=== PATIENT | female | born 1960 | race Caucasian/White ===

== ENCOUNTER 2016-12-08 15:27 | Emergency (ER) | payer OTHER ==
[~2016-12-08] VITALS: Ht 157.5 cm; Wt 70.3 kg
[~2016-12-08 15:27] MED LIST: ALBU8.5H2 IH; AMOX500C2 PO; CARI250T PO; CETI10CA PO; CETI1TAB80 PO; CHOL10003 PO; CYCL10TA9 PO; DCS100C PO; DEXL60CA5 PO; DIPH25CA79 PO; FLT05NA16 NS; FLUT9.9S NS; HYDR-3454 PO; HYDR-3600 PO; HYDR50CA PO; LEVO50TA PO; LINA145C PO; MELO-195 PO; NF-ESOM40C PO; PNT40TEC PO; POLY119P PO; PRD20T PO
--- OUTSIDE RECORDS SUMMARY | 2016-12-08 15:32 | XMS REPORT | Continuity of Care Document ---
Author Author [facility] Organization [facility] Address Unknown Phone Unavailable Care Team Providers Care Lining Feller Name Role Phone JACQUELINE HE DO PCP Insurance Providers Payer Name Policy Number Subscriber Name Relationship Self Pay Noel Alejo V 18 Self / Same As Patient Advance Directives Directive Response Recorded Date/Time Advance Directives No 12/02/14 10:35am Organ Donor Yes 12/02/14 10:35am Resuscitation Status Full Code 12/02/14 10:35am Problems No known problems or medical conditions. Medications Medication Dose Route Sig Days/Qty Instructions Order Date Discontinued Date Status Cyclobenzaprine HCl (Flexeril) 1 Ea PO THREE TIMES A DAY PRN Active Meloxicam (Mobic) 1 Ea PO DAILY PRN 05/25/09 Active Cholecalciferol 1 Tab PO DAILY 05/25/09 Active Carisoprodol 250 Mg PO EVERY 8HRS 20 Qty 05/25/09 11/29/12 Discontinued Dexlansoprazole 60 Mg PO BEDTIME 03/09/12 11/29/12 Discontinued Hydroxyzine HCl 1 - 2 Each PO TID PRN 11/29/12 Active Prednisone 40 Mg PO DAILY 4 Days 11/29/12 Active Albuterol 8.5 Gm IH EVERY 4HRS 1 Qty 2 PUFFS 12/08/12 Active Social History Social History Problem Response Recorded Date/Time Alcohol Use Rarely Uses 12/08/2012 11:16am Recreational Drug Use No 12/08/2012 11:16am Recent Foreign Travel No 12/02/2014 10:35am Smoking Status Current Everyday Smoker 12/02/2014 10:35am Query Response Start Date Stop Date Smoking Status Current Everyday Smoker Hospital Discharge Instructions No hospital discharge instructions. Plan of Care No plan of care. Functional Status No functional status results. Allergies, Adverse Reactions, Alerts Allergen Type Severity Reaction Status Last Updated sulfamethoxazole ([id number]) Allergy Mild Active 05/25/09 Trimethoprim Allergy Mild Active 05/25/09 Immunizations No immunization records. Vital Signs Acute Vital Signs Vital Response Date/Time Temperature (Fahrenheit) 97.4 degrees F (97.6 - 99.5) Temperature (Calculated Celsius) 36.53376 degrees C (36.4 - 37.5) Temperature Source Tympanic Pulse Rate (adult) 72 bpm (60 - 90) Respiratory Rate 18 bpm (12 - 24) O2 Sat by Pulse Oximetry 97 % (88 - 100) Blood Pressure 110/76 mm Hg Pain Pain Intensity 0 Height (Feet) 5 feet Height (Inches) 2.00 inches Height (Calculated Centimeters) 157.727936 cm Weight (Pounds) 155 pounds Weight (Calculated Grams) 31837.818 gm Weight (Calculated Kilograms) 70.993972 kilograms Height 5 ft 2 in Weight 155 lb Body Mass Index 28.3 kg/m^2 Results No known relevant diagnostic tests, laboratory data and/or discharge summary. Procedures No known history of procedures. Encounters Encounter Location Date/Time Registered [facility] 12/02/14 10:30am Registered Clinic [facility] 11/28/14 5:54am
[2016-12-08] MEDS ORDERED: PSEU-137 PO (15:53)
[2016-12-08 16:12] LABS: BASOPHILS % (AUTO) 0 % (0-10); EOSINOPHILS # (AUTO) 0.1 10^3/uL (0.0-0.3); EOSINOPHILS % (AUTO) 1 % (0-10); LYMPHOCYTES # (AUTO) 2.3 X 10^3 (1.0-4.0); LYMPHOCYTES % (AUTO) 33 % (12-44); MEAN CORPUSCULAR HEMOGLOBIN 31 PG (25-34); MEAN CORPUSCULAR HGB CONC 34 G/DL (32-36); MEAN CORPUSCULAR VOLUME 91 FL (80-99); MEAN PLATELET VOLUME 10.4 FL (7.4-10.4); MONOCYTES # (AUTO) 0.8 X 10^3 (0.0-1.0); MONOCYTES % (AUTO) 11 % (0-12); NEUTROPHILS # (AUTO) 3.8 X 10^3 (1.8-7.8); NEUTROPHILS % (AUTO) 55 % (42-75); PLATELET COUNT 240 10^3/uL (130-400); RED BLOOD COUNT 4.96 10^6/uL (4.35-5.85); RED CELL DISTRIBUTION WIDTH 12.5 % (10.0-14.5)
--- NOTE | 2016-12-08 16:17 | ED General ---
General Chief Complaint: General Problems/Pain Stated Complaint: WEAKNESS Nursing Triage Note: Pt c/o weakness in bilat lower extremities starting upon waking today. Pt also c/o cold chills and cough. Pt reports approx 2 hours ago she had an episode of feeling like both arms and legs were going numb. 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 Pt denies SOA or tongue swelling at this time. Nursing Sepsis Screen: No Definite Risk Source of Information: Patient Exam Limitations: No Limitations (THIEN BELTRAN MD) History of Present Illness Time Seen by Provider: 16:14 Initial Comments The patient is a 56-year-old white female who reports that she had been having problems with a mild weakness in her left leg for 2 or 3 weeks. This morning when she got up she felt a generalized weakness in both legs. This prompted her to lie back down and then she began to feel weak all over. She sees Dr. HE and call the office to see if she could be seen today but this was not possible so she came here. She reports that this feeling of overwhelming weakness is less now than before but still present. Timing/Duration: Other (THIEN BELTRAN MD) Allergies and Home Medications Allergies Coded Allergies: sulfamethoxazole (Unverified Allergy, Mild, 05/25/09) trimethoprim (Unverified Allergy, Mild, 05/25/09) Sulfa (Sulfonamide Antibiotics) (Unverified Allergy, Unknown, 12/08/16) Home Medications Cetirizine Hcl 10 Mg Capsule 10 MG PO HS (Reported) Cholecalciferol 1,000 Unit Tablet 2,000 UNITS PO HS (Reported) Diphenhydramine Hcl 25 Mg Capsule 25 MG PO TID PRN PRN ALLERGIES (Reported) PRN ALLERGIES Fluticasone Propionate 9.9 Ml [place].susp 9.9 ML NS UD (Reported) Hydroxyzine Pamoate 50 Mg Capsule #20 50 MG PO Q6H Prescribed by: MANOLO ANAYA on 07/03/15 0208 Levothyroxine Sodium 50 Mcg Tablet 50 MCG PO DAILY (Reported) Pantoprazole Sod 40 Mg Tab 40 MG PO BID (Reported) Polyethylene Glycol 119 Gm Btl 17 GM PO PRN PRN PRN CONSTIPATION (Reported) Pseudoephedrine HCl 30 Mg Tablet Unknown Dose PO PRN PRN PRN CONGESTION ( Reported) Constitutional: see HPI EENTM: no symptoms reported Respiratory: cough Cardiovascular: no symptoms reported Gastrointestinal: no symptoms reported Genitourinary: no symptoms reported Musculoskeletal: muscle weakness Skin: other (blue discoloration to feet and lower legs earlier today) Psychiatric/Neurological: No Symptoms Reported Hematologic/Lymphatic: No Symptoms Reported (THIEN BELTRAN MD) Past Ozoigma-Lynctf-Lajhyj Hx Patient Social History Alcohol Use: Denies Use Recreational Drug Use: No Smoking Status: Current Everyday Smoker Type Used: Cigarettes Recent Foreign Travel: No Contact w/Someone Who Travel: No Recent Infectious Disease Expo: No Recent Hopitalizations: No (THIEN BELTRAN MD) Immunizations Up To Date Tetanus Booster (TDap): Unknown (THIEN BELTRAN MD) Seasonal Allergies Seasonal Allergies: Yes (THIEN BELTRAN MD) Surgeries HX Surgeries: Yes (OPEN RSO) Surgeries: Appendectomy, Gallbladder, Oophorectomy, Tubal Ligation (THIEN BELTRAN MD) Respiratory Hx Respiratory Disorders: No (THIEN BELTRAN MD) Cardiovascular Hx Cardiac Disorders: No (THIEN BELTRAN MD) Neurological Hx Neurological Disorders: No (THIEN BELTRAN MD) Reproductive System Hx 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 (THIEN BELTRAN MD) Genitourinary Hx Genitourinary Disorders: No (THIEN BELTRAN MD) Gastrointestinal Hx Gastrointestinal Disorders: Yes Gastrointestinal Disorders: Gastroesophageal Reflux, Chronic Constipation, Diverticulosis, Polyps, Hiatal Hernia, Gall Bladder Disease (THIEN BELTRAN MD) Musculoskeletal Hx Musculoskeletal Disorders: Yes Musculoskeletal Disorders: Degenerate Disk Disease, Arthritis, Chronic Back Pain (THIEN BELTRAN MD) Endocrine Hx Endocrine Disorders: Yes Endocrine Disorders: Hypothyroidsim (THIEN BELTRAN MD) HEENT HX ENT Disorders: No (GLASSES, ALLERGIES) Hearing Impairment: Denies (THIEN BELTRAN MD) Cancer Hx Cancer: No (THIEN BELTRAN MD) Psychosocial Hx Psychiatric Problems: No (THIEN BELTRAN MD) Integumentary HX Skin/Integumentary Disorder: No (THIEN BELTRAN MD) Blood Transfusions Hx Blood Disorders: No Adverse Reaction to a Blood Tr: No (THIEN BELTRAN MD) Physical Exam Vital Signs Vital Sign - Last 12Hours 12/08/16 15:46 Temp 98.7 Pulse 108 Resp 18 B/P 148/99 Pulse Ox 96 O2 Delivery Room Air (MANOLO ANAYA DO) Vital Signs Capillary Refill : Less Than 3 Seconds (THIEN BELTRAN MD) General Appearance: Mild Distress Eyes: Bilateral Eye Normal Inspection HEENT: Normal ENT Inspection Neck: Normal Inspection Respiratory: Chest Non Tender Lungs Clear Normal Breath Sounds No Accessory Muscle Use No Respiratory Distress Cardiovascular: Regular Rate, Rhythm No Edema No Gallop No JVD No Murmur Normal Peripheral Pulses Gastrointestinal: Normal Bowel Sounds No Organomegaly No Pulsatile Mass Non Tender Soft Back: Normal Inspection No CVA Tenderness No Vertebral Tenderness Extremity: Normal Capillary Refill Normal Inspection Normal Range of Motion Non Tender No Calf Tenderness No Pedal Edema Neurologic/Psychiatric: Other (flat affect) Reflexes: 2+ Bicep (R), 2+ Bicep (L), 2+ Knee (R), 2+ Knee (L) Skin: Normal Color Warm/Dry Lymphatic: No Adenopathy (THIEN BELTRAN MD) Progress/Results/Core Measures Results/Orders Lab Results (MANOLO ANAYA DO) My Orders (MANOLO ANAYA DO) Vital Signs/I&O (MANOLO ANAYA DO) Blood Pressure Mean: 115 Progress Note : Progress Note 1640--ASSUMED CARE FROM DR BELTRAN. UA PENDING, HEAD CT ORDERED (MANOLO ANAYA DO) Diagnostic Imaging Comments CT HEAD--NO ACUTE PROCESS, PER RADIOLOGIST REPORT @ 1720 Reviewed: Reviewed by Me (MANOLO ANAYA DO) Departure Impression Impression: Primary Impression: Generalized weakness Disposition: 01 HOME, SELF-CARE Condition: Improved Departure-Patient Inst. Referrals: JACQUELINE HE DO (PCP/Family) Primary Care Physician Patient Instructions: Generalized Weakness (DC) Add. Discharge Instructions: CONTINUE YOUR CURRENT MEDICATIONS PRESCRIBED FOLLOW UP WITH DR. HE IN 3-5 DAYS FOR FURTHER CARE All discharge instructions reviewed with patient and/or family. Voiced understanding. THIEN BELTRAN MD Dec 08, 2016 16:17 MANOLO ANAYA DO Dec 08, 2016 17:22 Chloride Level 108 H 98-107 MMOL/L Creatinine 0.80 0.60-1.30 MG/DL Eosinophils # (Auto) 0.1 0.0-0.3 10^3/uL Eosinophils (%) (Auto) 1 0-10 % Estimat Glomerular Filtration Rate > 60 Glucose Level 122 H 70-105 MG/DL Hematocrit 45 35-52 % Hemoglobin 15.2 11.5-16.0 G/DL Lymphocytes # (Auto) 2.3 1.0-4.0 X 10^3 Lymphocytes (%) (Auto) 33 12-44 % Magnesium Level 2.0 1.8-2.4 MG/DL Mean Corpuscular Hemoglobin 31 25-34 PG Mean Corpuscular Hemoglobin Concent 34 32-36 G/DL Mean Corpuscular Volume 91 80-99 FL Mean Platelet Volume 10.4 7.4-10.4 FL Monocytes # (Auto) 0.8 0.0-1.0 X 10^3 Monocytes (%) (Auto) 11 0-12 % Neutrophils # (Auto) 3.8 1.8-7.8 X 10^3 Neutrophils (%) (Auto) 55 42-75 % Platelet Count 240 130-400 10^3/uL Potassium Level 3.9 3.6-5.0 MMOL/L Red Blood Count 4.96 4.35-5.85 10^6/uL Red Cell Distribution Width 12.5 10.0-14.5 % Sodium Level 141 135-145 MMOL/L TSH [place] Testing 0.98 0.35-4.94 UIU/ML Total Bilirubin 0.6 0.1-1.0 MG/DL Total Creatine Kinase 81 29-168 U/L Total Protein 6.5 6.4-8.2 G/DL White Blood Count 7.0 4.3-11.0 10^3/uL Ur Tricyclic Antidepressants Screen NEGATIVE NEGATIVE Urine Amphetamines Screen NEGATIVE NEGATIVE Urine Bacteria NEGATIVE /HPF Urine Barbiturates Screen NEGATIVE NEGATIVE Urine Benzodiazepines Screen NEGATIVE NEGATIVE Urine Bilirubin NEGATIVE NEGATIVE Urine Cannabinoids Screen NEGATIVE NEGATIVE Urine Casts NONE /LPF Urine Clarity CLEAR Urine Cocaine Screen NEGATIVE NEGATIVE Urine Color YELLOW Urine Crystals NONE /LPF Urine Culture Indicated NO Urine Glucose (UA) NEGATIVE NEGATIVE Urine Ketones NEGATIVE NEGATIVE Urine Leukocyte Esterase NEGATIVE NEGATIVE Urine Methadone Screen NEGATIVE NEGATIVE Urine Methamphetamines Screen NEGATIVE NEGATIVE Urine Mucus NEGATIVE /LPF Urine Nitrite NEGATIVE NEGATIVE Urine Opiates Screen NEGATIVE NEGATIVE Urine Oxycodone Screen NEGATIVE NEGATIVE Urine Phencyclidine Screen NEGATIVE NEGATIVE Urine Propoxyphene Screen NEGATIVE NEGATIVE Urine Protein NEGATIVE NEGATIVE Urine RBC NONE /HPF Urine RBC (Auto) NEGATIVE NEGATIVE Urine Specific [place] 1.005 L 1.016-1.022 Urine Squamous Epithelial Cells 0-2 /HPF Urine Urobilinogen NORMAL NORMAL MG/DL Urine WBC NONE /HPF Urine pH 7 5-9 (MANOLO ANAYA DO) My Orders Orders-MANOLO ANAYA DO Ct Head Wo (12/08/16 16:53) Magnesium (12/08/16 17:23) Thyroid Analyzer (12/08/16 17:23) (MANOLO ANAYA DO) Vital Signs/I&O Vital Sign - Last 12Hours 12/08/16 15:46 Temp 98.7 Pulse 108 Resp 18 B/P 148/99 Pulse Ox 96 O2 Delivery Room Air (MANOLO ANAYA DO) Blood Pressure Mean: 115 Progress Note : Progress Note 1640--ASSUMED CARE FROM DR BELTRAN. UA PENDING, HEAD CT ORDERED (MANOLO ANAYA DO) Diagnostic Imaging Comments CT HEAD--NO ACUTE PROCESS, PER RADIOLOGIST REPORT @ 1720 Reviewed: Reviewed by Me (MANOLO ANAYA DO) Departure Impression Impression: Primary Impression: Generalized weakness Disposition: 01 HOME, SELF-CARE Condition: Improved Departure-Patient Inst. Referrals: JACQUELINE HE DO (PCP/Family) Primary Care Physician Patient Instructions: Generalized Weakness (DC) Add. Discharge Instructions: CONTINUE YOUR CURRENT MEDICATIONS PRESCRIBED FOLLOW UP WITH DR. HE IN 3-5 DAYS FOR FURTHER CARE All discharge instructions reviewed with patient and/or family. Voiced understanding. THIEN BELTRAN MD Dec 08, 2016 16:17 MANOLO ANAYA DO Dec 08, 2016 17:22
[2016-12-08 16:32] LABS: ALANINE AMINOTRANSFERASE 36 U/L (0-55); ALBUMIN 4.2 G/DL (3.2-4.5); ANION GAP 10 MMOL/L (5-14); ASPARTATE AMINO TRANSFERASE 29 U/L (5-34); BILIRUBIN,TOTAL 0.6 MG/DL (0.1-1.0); BLOOD UREA NITROGEN 8 MG/DL (7-18); BUN/CREATININE RATIO 10; CARBON DIOXIDE 23 MMOL/L (21-32); CHLORIDE 108 MMOL/L (98-107); CREATINE KINASE 81 U/L (29-168); GFR ESTIMATED > 60; GLUCOSE 122 MG/DL (70-105); POTASSIUM 3.9 MMOL/L (3.6-5.0); SODIUM 141 MMOL/L (135-145); TOTAL PROTEIN 6.5 G/DL (6.4-8.2)
[2016-12-08 16:48] LABS: BILIRUBIN,URINE NEGATIVE (NEGATIVE); KETONES,URINE NEGATIVE (NEGATIVE); LEUKOCYTE ESTERASE ,URINE NEGATIVE (NEGATIVE); NITRITE,URINE NEGATIVE (NEGATIVE); PH,URINE 7 (5-9); PROTEIN,URINE NEGATIVE (NEGATIVE); UROBILINOGEN,URINE NORMAL (NORMAL)
[2016-12-08 17:11] LABS: SQUAMOUS EPITHELIAL CELL,UR 0-2 /HPF
--- NOTE | 2016-12-08 17:16 | Diagnostic Imaging Report ---
PROCEDURE: CT head without contrast. TECHNIQUE: Multiple contiguous axial images were obtained through the brain without the use of intravenous contrast. INDICATION: Numbness and tingling in bilateral upper and lower extremities. FINDINGS: There is no intracranial hemorrhage, edema, or mass effect. The brain parenchyma and quintana-white matter differentiation is preserved. No hydrocephalus. No extra-axial fluid collection seen. The calvarium, the visualized portions of the paranasal sinuses and orbits appear grossly unremarkable. IMPRESSION: Unremarkable exam. Dictated by: Dictated on workstation # [id number]
[2016-12-08 19:20] VITALS: BP 136/81
== END 2016-12-08 19:20 | disposition home or self-care (01) ==
LOC: EDUNIT# 15:27 → ER 15:29
DX: R53.1 Weakness (principal); F17.210 Nicotine dependence, cigarettes, uncomplicated; Z79.899 Other long term (current) drug therapy
CPT/HCPCS: 36415; 70450; 80053; 80306; 81000; 82550; 83735; 84443; 85025

== ENCOUNTER 2017-03-23 17:43 | Emergency (ER) | payer SELFPAY ==
[~2017-03-23] VITALS: Ht 157.5 cm; Wt 72.6 kg
[~2017-03-23 17:43] MED LIST changes: +PSEU-137 PO
--- NOTE | 2017-03-23 18:19 | ED General ---
General Stated Complaint: SWELLING IN STOMACH AND BOTH LEGS Source of Information: Patient History of Present Illness Time Seen by Provider: 18:05 Initial Comments C/O LEGS SWELLING X 1 WEEK STATES SHE CALLED DR. HE JUST PRIOR TO ARRIVAL AND RX FOR DIURETIC CALLED IT. PT THEN LAID DOWN AND THEN SHE BEGAN TO HAVE SWELLING IN HER BACK AND ABDOMEN AND NOW "HAS EXTRA ROLLS I DIDN'T HAVE BEFORE--EXTRA " SPARE TIRES" " SLIGHT SHORTNESS OF BREATH NO CHEST PAIN NO RECENT ILLNESS HAD SLIGHT NAUSEA SEVERAL DAYS AGO, NONE SINCE NO FEVER, BUT HAD CHILLS SEVERAL DAYS AGO STATES SHE FEELS TINGLY ALL OVER C/O PRESSURE TO URINATE, AND JUST PRIOR TO ARRIVAL. HAD SLIGHT BRIEF PAIN OVER HER BLADDER. IS GONE NOW. NO PAIN IN BACK OR ABDOMEN OTHERWISE NO LEG PAIN NO RECENT TRAVEL INITIALLY STATES NO HISTORY OF SIMILAR. LATER STATES SHE HAD THE SAME IN NOVEMBER AND WAS GIVEN RX FOR DIURETIC AND MELOXICAM AND SYMPTOMS WENT AWAY. STATES SWELLING IN LEGS MOSTLY TO THIGHS AND MEDIAL ASPECT OF KNEES--AFTER INITIALLY STATING HER SWELLING WAS IN HER ANKLES PCP: DR. HE Allergies and Home Medications Allergies Coded Allergies: sulfamethoxazole (Unverified Allergy, Mild, 05/25/09) trimethoprim (Unverified Allergy, Mild, 05/25/09) Sulfa (Sulfonamide Antibiotics) (Unverified Allergy, Unknown, 12/08/16) Home Medications Cetirizine Hcl 10 Mg Capsule, 10 MG PO HS, (Reported) Cholecalciferol 1,000 Unit Tablet, 2,000 UNITS PO HS, (Reported) Diphenhydramine Hcl 25 Mg Capsule, 25 MG PO TID PRN for ALLERGIES, (Reported) PRN ALLERGIES Fluticasone Propionate 9.9 Ml [place].susp, 9.9 ML NS UD, (Reported) Hydroxyzine Pamoate 50 Mg Capsule, 50 MG PO Q6H, #20 Prescribed by: MANOLO ANAYA on 07/03/15 0208 Levothyroxine Sodium 50 Mcg Tablet, 50 MCG PO DAILY, (Reported) Pantoprazole Sod 40 Mg Tab, 40 MG PO BID, (Reported) Polyethylene Glycol 119 Gm Btl, 17 GM PO PRN PRN for CONSTIPATION, (Reported) Pseudoephedrine HCl 30 Mg Tablet, Unknown Dose PO PRN PRN for CONGESTION, ( Reported) Constitutional: no symptoms reported EENTM: nose congestion, other (SINUS PROBLEMS/ALLERGIES--NORMAL FOR PT) Respiratory: see HPI, No cough, No dyspnea on exertion, No orthopnea, short of breath Cardiovascular: No chest pain, edema, No palpitations, No syncope, No vascular heart diseas Gastrointestinal: see HPI, No diarrhea, nausea, No vomiting, other (ABDOMINAL SWELLING) Genitourinary: see HPI Musculoskeletal: see HPI (LEG, ABDOMEN AND BACK SWELLING), No back pain Skin: no symptoms reported Psychiatric/Neurological: No Symptoms Reported Hematologic/Lymphatic: No Symptoms Reported Immunological/Allergic: see HPI (SEASONAL ALLERGIES) Past Zpbyjah-Wkufka-Pmhxvo Hx Patient Social History Alcohol Use: Occasionally Uses Recreational Drug Use: No Smoking Status: Current Everyday Smoker (12- PPD) Type Used: Cigarettes Recent Foreign Travel: No Contact w/Someone Who Travel: No Recent Hopitalizations: No Immunizations Up To Date Tetanus Booster (TDap): Unknown Seasonal Allergies Seasonal Allergies: Yes Surgeries HX Surgeries: Yes (OPEN RSO; EGD/COLONOSCOPY WITH COLON POLYPECTOMY) Surgeries: Appendectomy, Gallbladder, Oophorectomy, Tubal Ligation Respiratory Hx Respiratory Disorders: No Cardiovascular Hx Cardiac Disorders: No Neurological Hx Neurological Disorders: No Reproductive System Hx Reproductive Disorders: Yes (UTERINE FIBROIDS, FIBROCYSTIC BREAST DISEASE) Female 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 Genitourinary Hx Genitourinary Disorders: No Gastrointestinal Hx Gastrointestinal Disorders: Yes Gastrointestinal Disorders: Gastroesophageal Reflux, Chronic Constipation, Diverticulosis, Polyps, Hiatal Hernia, Gall Bladder Disease Musculoskeletal Hx Musculoskeletal Disorders: Yes Musculoskeletal Disorders: Degenerate Disk Disease, Arthritis, Chronic Back Pain Endocrine Hx Endocrine Disorders: Yes Endocrine Disorders: Hypothyroidsim HEENT HX ENT Disorders: Yes (GLASSES, ALLERGIES) Hearing Impairment: Denies Cancer Hx Cancer: No Psychosocial Hx Psychiatric Problems: No Integumentary HX Skin/Integumentary Disorder: No Blood Transfusions Hx Blood Disorders: No Adverse Reaction to a Blood Tr: No Physical Exam Vital Signs Vital Sign - Last 12Hours 03/23/17 17:52 Temp 97.9 Pulse 99 Resp 20 B/P (MAP) 160/95 Pulse Ox 97 O2 Delivery Room Air Capillary Refill : General Appearance: No Apparent Distress, WD/WN, Other (FLAT AFFECT. DOES NOT MAKE EYE CONTACT) HEENT: PERRL/EOMI Neck: Full Range of Motion, Normal Inspection, Non Tender, Supple Respiratory: Normal Breath Sounds, No Accessory Muscle Use, No Respiratory Distress Cardiovascular: Regular Rate, Rhythm, No Edema, No Gallop, No JVD, No Murmur, Normal Peripheral Pulses Gastrointestinal: Normal Bowel Sounds, No Organomegaly, No Pulsatile Mass, Non Tender, Soft, Other (NO ASCITES OR EVIDENCE OF EDEMA) Back: Normal Inspection, No CVA Tenderness, No Vertebral Tenderness Extremity: Normal Capillary Refill, Normal Inspection, Normal Range of Motion, Non Tender, No Calf Tenderness, No Pedal Edema, Other (NO EDEMA NOTED TO ANY PART OF LEGS. 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 ) Skin: Normal Color, Warm/Dry Progress/Results/Core Measures Results/Orders Lab Results Laboratory Tests Test 03/23/17 17:50 03/23/17 18:23 Range/Units Urine Color YELLOW Urine Clarity CLEAR Urine pH 7 5-9 Urine Specific [place] 1.005 L 1.016-1.022 Urine Protein NEGATIVE NEGATIVE Urine Glucose (UA) NEGATIVE NEGATIVE Urine Ketones NEGATIVE NEGATIVE Urine Nitrite NEGATIVE NEGATIVE Urine Bilirubin NEGATIVE NEGATIVE Urine Urobilinogen NORMAL NORMAL MG/DL Urine Leukocyte Esterase NEGATIVE NEGATIVE Urine RBC (Auto) NEGATIVE NEGATIVE Urine RBC NONE /HPF Urine WBC RARE /HPF Urine Squamous Epithelial Cells 5-10 /HPF Urine Crystals NONE /LPF Urine Bacteria TRACE /HPF Urine Casts NONE /LPF Urine Mucus NEGATIVE /LPF Urine Culture Indicated NO White Blood Count 8.0 4.3-11.0 10^3/uL Red Blood Count 4.95 4.35-5.85 10^6/uL Hemoglobin 15.1 11.5-16.0 G/DL Hematocrit 45 35-52 % Mean Corpuscular Volume 91 80-99 FL Mean Corpuscular Hemoglobin 31 25-34 PG Mean Corpuscular Hemoglobin Concent 34 32-36 G/DL Red Cell Distribution Width 12.9 10.0-14.5 % Platelet Count 264 130-400 10^3/uL Mean Platelet Volume 10.1 7.4-10.4 FL Neutrophils (%) (Auto) 61 42-75 % Lymphocytes (%) (Auto) 29 12-44 % Monocytes (%) (Auto) 9 0-12 % Eosinophils (%) (Auto) 1 0-10 % Basophils (%) (Auto) 0 0-10 % Neutrophils # (Auto) 4.9 1.8-7.8 X 10^3 Lymphocytes # (Auto) 2.4 1.0-4.0 X 10^3 Monocytes # (Auto) 0.7 0.0-1.0 X 10^3 Eosinophils # (Auto) 0.1 0.0-0.3 10^3/uL Basophils # (Auto) 0.0 0.0-0.1 10^3/uL Prothrombin Time 12.1 L 12.2-14.7 SEC INR Comment 0.9 0.8-1.4 Activated Partial Thromboplast Time 26 24-35 SEC Sodium Level 141 135-145 MMOL/L Potassium Level 3.9 3.6-5.0 MMOL/L Chloride Level 106 98-107 MMOL/L Carbon Dioxide Level 24 21-32 MMOL/L Anion Gap 11 5-14 MMOL/L Blood Urea Nitrogen 7 7-18 MG/DL Creatinine 0.75 0.60-1.30 MG/DL Estimat Glomerular Filtration Rate > 60 BUN/Creatinine Ratio 9 Glucose Level 104 70-105 MG/DL Calcium Level 9.7 8.5-10.1 MG/DL Magnesium Level 2.0 1.8-2.4 MG/DL Total Bilirubin 0.5 0.1-1.0 MG/DL Aspartate Amino Transf (AST/SGOT) 31 5-34 U/L Alanine Aminotransferase (ALT/SGPT) 38 0-55 U/L Alkaline Phosphatase 69 40-136 U/L Troponin I < 0.30 <0.30 NG/ML B-Type Natriuretic Peptide 41.7 <100.0 PG/ML Total Protein 7.1 6.4-8.2 G/DL Albumin 4.4 3.2-4.5 G/DL Amylase Level 60 25-125 U/L Lipase 27 8-78 U/L TSH [place] Testing 1.09 0.35-4.94 UIU/ML My Orders Orders - MANOLO ANAYA DO Saline Lock/Iv-Start (03/23/17 18:06) Amylase (03/23/17 18:06) BNP (03/23/17 18:06) Cbc With Automated Diff (03/23/17 18:06) Comprehensive Metabolic Panel (03/23/17 18:06) Lipase (03/23/17 18:06) Magnesium (03/23/17 18:06) Protime With Inr (03/23/17 18:06) Partial Thromboplastin Time (03/23/17 18:06) Thyroid Analyzer (03/23/17 18:06) Troponin I (03/23/17 18:06) Ua Culture If Indicated (03/23/17 18:06) Chest Pa/Lat (2 View) (03/23/17 19:23) Ct Chest/Abdomen/Pelvis W (03/23/17 19:23) Iohexol Injection (Omnipaque 350 Mg/Ml 1 (03/23/17 20:00) Ns (Ivpb) (Sodium Chloride 0.9% Ivpb Bag (03/23/17 20:00) Medications Given in ED Current Medications Medications Dose Ordered Sig/Narayan Route Start Time Stop Time Status Last Admin Dose Admin Iohexol 100 ml ONCE ONCE IV 03/23/17 20:00 03/23/17 20:01 DC 03/23/17 19:52 100 ML Sodium Chloride 80 ml ONCE ONCE IV 03/23/17 20:00 03/23/17 20:01 DC 03/23/17 19:53 80 ML Vital Signs/I&O Vital Sign - Last 12Hours 03/23/17 03/23/17 17:52 20:23 Temp 97.9 97.9 Pulse 99 92 Resp 20 20 B/P (MAP) 160/95 Pulse Ox 97 97 O2 Delivery Room Air Diagnostic Imaging Comments CXR--NO ACUTE PROCESS CT CHEST/ABDOMEN/PELVIS--NO ACUTE PROCESS, PER RADIOLOGIST REPORT @ 2019 Reviewed: Reviewed by Me Departure Impression Impression: Primary Impression: Fluid retention Disposition: 01 HOME, SELF-CARE Condition: Stable Departure-Patient Inst. Referrals: JACQUELINE HE DO (PCP/Family) Primary Care Physician Patient Instructions: Dependent Edema (DC) Add. Discharge Instructions: GET YOUR PRESCRIPTION FOR DIURETIC FILLED AND TAKE PRESCRIBED FOLLOW UP WITH DR. HE THIS WEEK FOR FURTHER CARE MANOLO ANAYA DO March 23, 2017 18:19
[2017-03-23 18:28] LABS: BILIRUBIN,URINE NEGATIVE (NEGATIVE); KETONES,URINE NEGATIVE (NEGATIVE); LEUKOCYTE ESTERASE ,URINE NEGATIVE (NEGATIVE); NITRITE,URINE NEGATIVE (NEGATIVE); PH,URINE 7 (5-9); PROTEIN,URINE NEGATIVE (NEGATIVE); UROBILINOGEN,URINE NORMAL (NORMAL)
[2017-03-23 18:34] LABS: BASOPHILS % (AUTO) 0 % (0-10); EOSINOPHILS # (AUTO) 0.1 10^3/uL (0.0-0.3); EOSINOPHILS % (AUTO) 1 % (0-10); LYMPHOCYTES # (AUTO) 2.4 X 10^3 (1.0-4.0); LYMPHOCYTES % (AUTO) 29 % (12-44); MEAN CORPUSCULAR HEMOGLOBIN 31 PG (25-34); MEAN CORPUSCULAR HGB CONC 34 G/DL (32-36); MEAN CORPUSCULAR VOLUME 91 FL (80-99); MEAN PLATELET VOLUME 10.1 FL (7.4-10.4); MONOCYTES # (AUTO) 0.7 X 10^3 (0.0-1.0); MONOCYTES % (AUTO) 9 % (0-12); NEUTROPHILS # (AUTO) 4.9 X 10^3 (1.8-7.8); NEUTROPHILS % (AUTO) 61 % (42-75); PLATELET COUNT 264 10^3/uL (130-400); RED BLOOD COUNT 4.95 10^6/uL (4.35-5.85); RED CELL DISTRIBUTION WIDTH 12.9 % (10.0-14.5)
[2017-03-23 18:40] LABS: WBC,URINE RARE /HPF
[2017-03-23 18:42] LABS: INR 0.9 (0.8-1.4); PROTHROMBIN TIME PATIENT 12.1 SEC (12.2-14.7)
[2017-03-23 18:54] LABS: ALANINE AMINOTRANSFERASE 38 U/L (0-55); ALBUMIN 4.4 G/DL (3.2-4.5); AMYLASE 60 U/L (25-125); ANION GAP 11 MMOL/L (5-14); ASPARTATE AMINO TRANSFERASE 31 U/L (5-34); BILIRUBIN,TOTAL 0.5 MG/DL (0.1-1.0); BLOOD UREA NITROGEN 7 MG/DL (7-18); BUN/CREATININE RATIO 9; CALCIUM 9.7 MG/DL (8.5-10.1); CARBON DIOXIDE 24 MMOL/L (21-32); CHLORIDE 106 MMOL/L (98-107); CREATININE SERUM 0.75 MG/DL (0.60-1.30); GFR ESTIMATED > 60; GLUCOSE 104 MG/DL (70-105); LIPASE 27 U/L (8-78); POTASSIUM 3.9 MMOL/L (3.6-5.0); SODIUM 141 MMOL/L (135-145); TOTAL PROTEIN 7.1 G/DL (6.4-8.2)
[2017-03-23 19:13] LABS: TROPONIN I < 0.30 NG/ML (<0.30)
[2017-03-23] MEDS: IOHEXOL 350 MG/ML 100 ML (OMNIPAQUE 350) VIAL IV ONE (19:52)
[2017-03-23] MEDS: NS 100 ML (IVPB) BAG IV ONE (19:53)
--- NOTE | 2017-03-23 19:55 | Diagnostic Imaging Report ---
INDICATION: Cough COMPARISON STUDY: Chest from 12/08/12. FINDINGS: Two views of the chest demonstrate the lungs to be clear. The heart, mediastinum, and pulmonary vascularity are normal. IMPRESSION: Negative chest. Dictated by: Dictated on workstation # [id number]
--- NOTE | 2017-03-23 20:12 | Diagnostic Imaging Report ---
PROCEDURE: CT chest, abdomen, and pelvis with contrast. TECHNIQUE: Multiple contiguous axial images were obtained through the chest, abdomen, and pelvis after the administration of intravenous contrast. DATE: March 23, 2017. COMPARISON: Abdominal radiographs from February 25, 2016. Chest radiographs from March 23, 2017 and December 08, 2012. INDICATION: 56-year-old female, swelling of the abdomen and lower extremities. FINDINGS: In the right middle lobe on axial image 39, there is a thin-walled cystic lesion in the left lower lobe likely relating to a pneumatocele. There is no identified noncalcified pulmonary nodule. There is no focal airspace consolidation. There is no pneumothorax. There is no pleural effusion. The central airways are patent. The heart is not enlarged. There is no pericardial effusion. There is no identified central or segmental pulmonary embolus. The main pulmonary artery is normal in caliber. There are limitations for assessment of subsegmental pulmonary emboli given the timing of the contrast bolus. There is no identified abnormally enlarged mediastinal, hilar or axillary lymph node which meets CT size criteria for adenopathy. The liver is normal in size and contour. There is no identified liver lesion. The main, right and left portal vein are patent. The patient is status post cholecystectomy. There is no intrahepatic or extrahepatic bile duct dilation. The main pancreatic duct is not abnormally dilated. The pancreatic parenchyma is unremarkable. The spleen is not enlarged. There are accessory splenules on axial image 55. The adrenal glands are unremarkable. Unremarkable appearance of the renal parenchyma. The urinary collecting systems are not distended. There is no identified renal or ureteral stone. There are multiple pelvic calcifications likely relating to phleboliths. The urinary bladder is unremarkable in appearance. The intestinal tract is not distended. The appendix is not well identified; however, there are no secondary findings to suggest acute appendicitis. There is no free intraperitoneal air. There is no drainable fluid collection. There is no free pelvic fluid. There is a small fat-containing umbilical hernia. There are atherosclerotic calcifications. There is no identified abnormally enlarged lymph node within the abdomen or pelvis which meets CT size criteria for adenopathy. There is no identified acute bony abnormality. There is severe disc height loss at L4-L5 and L5-S1. IMPRESSION: CT chest, abdomen and pelvis: 1. No identified acute cardiopulmonary abnormality. 2. No identified acute abnormality within the abdomen or pelvis. 3. Incidental findings as noted above. Dictated by: Dictated on workstation # [id number]
[2017-03-23 20:23] VITALS: BP 156/96
== END 2017-03-23 20:23 | disposition home or self-care (01) ==
LOC: EDUNIT# 17:43 → ER 17:46
DX: R60.0 Localized edema (principal)
CPT/HCPCS: 36415; 71020; 71260; 74177; 80053; 81000; 82150; 83690; 83735; 83880; 84443; 84484; 85025; 85610; 85730

== ENCOUNTER → 2017-05-12 | Outpatient (CLI) | payer OTHER ==
[~2017-05-12] MED LIST changes: +HYDR-756 PO
[2017-05-12 15:23] LABS: BASOPHILS % (AUTO) 1 % (0-10); EOSINOPHILS # (AUTO) 0.1 10^3/uL (0.0-0.3); EOSINOPHILS % (AUTO) 1 % (0-10); LYMPHOCYTES # (AUTO) 3.1 X 10^3 (1.0-4.0); LYMPHOCYTES % (AUTO) 41 % (12-44); MEAN CORPUSCULAR HEMOGLOBIN 31 PG (25-34); MEAN CORPUSCULAR HGB CONC 34 G/DL (32-36); MEAN CORPUSCULAR VOLUME 91 FL (80-99); MEAN PLATELET VOLUME 10.2 FL (7.4-10.4); MONOCYTES % (AUTO) 13 % (0-12); NEUTROPHILS # (AUTO) 3.4 X 10^3 (1.8-7.8); NEUTROPHILS % (AUTO) 45 % (42-75); PLATELET COUNT 233 10^3/uL (130-400); RED BLOOD COUNT 4.82 10^6/uL (4.35-5.85); RED CELL DISTRIBUTION WIDTH 12.6 % (10.0-14.5); WHITE BLOOD COUNT 7.6 10^3/uL (4.3-11.0)
[2017-05-12 15:24] LABS: BILIRUBIN,URINE NEGATIVE (NEGATIVE); KETONES,URINE NEGATIVE (NEGATIVE); LEUKOCYTE ESTERASE ,URINE NEGATIVE (NEGATIVE); NITRITE,URINE NEGATIVE (NEGATIVE); PH,URINE 7 (5-9); PROTEIN,URINE NEGATIVE (NEGATIVE); UROBILINOGEN,URINE NORMAL (NORMAL)
[2017-05-12 15:43] LABS: ERYTHROCYTE SEDIMENTATION RATE 3 MM/HR (0-30)
[2017-05-12 15:44] LABS: WBC,URINE 0-2 /HPF
== END ==
LOC: LAB 15:06
PROVIDERS: ATTEND Family Medicine
DX: R60.9 Edema, unspecified (principal); M54.5 Low back pain
CPT/HCPCS: 36415; 81000; 85025; 85652

== ENCOUNTER 2017-05-15 13:57 | Emergency (ER) | payer SELFPAY ==
[~2017-05-15] VITALS: Ht 157.5 cm; Wt 72.6 kg
[~2017-05-15 13:57] MED LIST changes: -HYDR-756 PO
--- NOTE | 2017-05-15 16:30 | ED Lower Extremity ---
General Chief Complaint: Lower Extremity Stated Complaint: RIGHT LEG PAIN Nursing Triage Note: Pt c/o "shooting pains" down R leg that started on 05/11 Nursing Sepsis Screen: No Definite Risk Source: patient Exam Limitations: no limitations History of Present Illness Time seen by provider: 16:25 Initial Comments The patient is a 57-year-old white female who reports that she began having pains shooting down her right anterior leg beginning on 05/11. She reports that she drove to her mother's home on 05/09. Her mother lives in [place]. In addition to visiting she changed to a number of light bulbs which required climbing up and down a ladder. She noted no distal comfort at that time. And did not until Friday 05/11. She has a past history of degenerative disc disease. I found an MRI from 2008 which showed degenerative disc disease and mild impingement on the neural foramina. She describes this pain as sharp and tingling and at times lancinating. By and large it comes down the anterior surface of her right leg and as distally as the dorsum of the foot. She has Flexeril but did not take any. She has taken meloxicam in the past and developed some gastritis symptoms. This was after prolonged and regular use. She describes difficulty in sleeping last night because of shooting pains. Onset: last week Pain/Injury Location: right leg, right thigh, right foot Method of Injury: unknown Allergies and Home Medications Allergies Coded Allergies: sulfamethoxazole (Unverified Allergy, Mild, 05/25/09) trimethoprim (Unverified Allergy, Mild, 05/25/09) Sulfa (Sulfonamide Antibiotics) (Unverified Allergy, Unknown, 12/08/16) Home Medications Cetirizine Hcl 10 Mg Capsule, 10 MG PO HS, (Reported) Cholecalciferol 1,000 Unit Tablet, 2,000 UNITS PO HS, (Reported) Diphenhydramine Hcl 25 Mg Capsule, 25 MG PO TID PRN for ALLERGIES, (Reported) PRN ALLERGIES Fluticasone Propionate 9.9 Ml [place].susp, 9.9 ML NS UD, (Reported) Hydroxyzine Pamoate 50 Mg Capsule, 50 MG PO Q6H, #20 Prescribed by: MANOLO ANAYA on 07/03/15 0208 Levothyroxine Sodium 50 Mcg Tablet, 50 MCG PO DAILY, (Reported) Pantoprazole Sod 40 Mg Tab, 40 MG PO BID, (Reported) Polyethylene Glycol 119 Gm Btl, 17 GM PO PRN PRN for CONSTIPATION, (Reported) Pseudoephedrine HCl 30 Mg Tablet, Unknown Dose PO PRN PRN for CONGESTION, ( Reported) Constitutional: see HPI EENTM: no symptoms reported Respiratory: no symptoms reported Cardiovascular: no symptoms reported Gastrointestinal: no symptoms reported Genitourinary: no symptoms reported Musculoskeletal: see HPI, back pain Psychiatric/Neurological: Tingling, Other (lancinating pain) Past Clatxbp-Gbkudg-Fiasof Hx Patient Social History Alcohol Use: Denies Use Recreational Drug Use: No Smoking Status: Current Everyday Smoker Type Used: Cigarettes 2nd Hand Smoke Exposure: Yes Recent Foreign Travel: No Contact w/Someone Who Travel: No Recent Infectious Disease Expo: No Recent Hopitalizations: No Immunizations Up To Date Tetanus Booster (TDap): Unknown Seasonal Allergies Seasonal Allergies: Yes Surgeries HX Surgeries: Yes (OPEN RSO; EGD/COLONOSCOPY WITH COLON POLYPECTOMY) Surgeries: Appendectomy, Gallbladder, Oophorectomy, Tubal Ligation Respiratory Hx Respiratory Disorders: No Cardiovascular Hx Cardiac Disorders: No Neurological Hx Neurological Disorders: No Reproductive System Hx Reproductive Disorders: Yes (UTERINE FIBROIDS, FIBROCYSTIC BREAST DISEASE) Female Reproductive Disorders: Ovarian Cyst [employer] History: Menopausal Genitourinary Hx Genitourinary Disorders: No Gastrointestinal Hx Gastrointestinal Disorders: Yes Gastrointestinal Disorders: Gastroesophageal Reflux, Chronic Constipation, Diverticulosis, Polyps, Hiatal Hernia, Gall Bladder Disease Musculoskeletal Hx Musculoskeletal Disorders: Yes Musculoskeletal Disorders: Degenerate Disk Disease, Arthritis, Chronic Back Pain Endocrine Hx Endocrine Disorders: Yes Endocrine Disorders: Hypothyroidsim HEENT HX ENT Disorders: Yes (GLASSES, ALLERGIES) Hearing Impairment: Denies Cancer Hx Cancer: No Psychosocial Hx Psychiatric Problems: No Integumentary HX Skin/Integumentary Disorder: No Blood Transfusions Hx Blood Disorders: No Adverse Reaction to a Blood Tr: No Physical Exam Vital Signs Vital Sign - Last 12Hours 05/15/17 14:49 Temp 98.5 Pulse 85 Resp 18 B/P (MAP) 118/79 Pulse Ox 97 O2 Delivery Room Air Capillary Refill : Less Than 3 Seconds General Appearance: mild distress HEENT: normal ENT inspection Neck: full range of motion Cardiovascular: normal peripheral pulses, regular rate, rhythm, no edema, no gallop, no JVD, no murmur Respiratory: chest non-tender, lungs clear, normal breath sounds, no respiratory distress, no accessory muscle use Gastrointestinal: normal bowel sounds, non tender, soft, no organomegaly, no pulsatile mass Hips: bilateral hip non-tender, bilateral hip normal inspection, bilateral hip normal range of motion, bilateral hip no evidence of injury Legs: bilateral leg non-tender, bilateral leg normal inspection, bilateral leg normal range of motion, bilateral leg no evidence of injury Ankles: bilateral ankle non-tender, bilateral ankle normal inspection, bilateral ankle normal range of motion, bilateral ankle no evidence of injury Feet: bilateral foot non-tender, bilateral foot normal inspection, bilateral foot normal range of motion, bilateral foot no evidence of injury Reflexes: 2+ knee (R), 2+ knee (L) Neurologic/Tendon: normal sensation, normal motor functions Skin: normal color, warm/dry Lymphatic: no adenopathy, axilla node tender (L) Progress/Results/Core Measures Results/Orders Vital Signs/I&O Vital Sign - Last 12Hours 05/15/17 14:49 Temp 98.5 Pulse 85 Resp 18 B/P (MAP) 118/79 Pulse Ox 97 O2 Delivery Room Air Blood Pressure Mean: 92 Departure Impression Impression: Primary Impression: Lumbar radicular pain Disposition: 01 HOME, SELF-CARE Condition: Stable/Unchanged Departure-Patient Inst. Decision time for Depature: 16:44 Referrals: JACQUELINE HE DO (PCP/Family) Primary Care Physician Patient Instructions: Paresthesias (DC) Add. Discharge Instructions: All discharge instructions reviewed with patient and/or family. Voiced understanding. Resume your meloxicam twice daily until you discuss this with your physician. Take Flexeril twice daily Use [place] at bedtime if needed for sleep. Scripts Hydrocodone/Acetaminophen ([place] 7.5-325 Tablet) 1 Each Tablet 1 EACH PO at at bedtime, #10 TAB Prov: THIEN BELTRAN MD 05/15/17 THIEN BELTRAN MD May 15, 2017 16:30
[2017-05-15] MEDS ORDERED: HYDR-756 PO (16:46)
[2017-05-15 16:56] VITALS: BP 118/79
== END 2017-05-15 15:36 | disposition home or self-care (01) ==
LOC: EDUNIT# 13:57 → ER 13:59
DX: M54.16 Radiculopathy, lumbar region (principal); E03.9 Hypothyroidism, unspecified; M47.9 Spondylosis, unspecified; K21.9 Gastro-esophageal reflux disease without esophagitis; K59.09 Other constipation; F17.210 Nicotine dependence, cigarettes, uncomplicated; Z87.42 Personal history of other diseases of the female genital tract; Z98.51 Tubal ligation status; Z90.49 Acquired absence of other specified parts of digestive tract
CPT/HCPCS: 99283

== ENCOUNTER → 2017-07-20 | Outpatient (CLI) | payer OTHER ==
[~2017-07-20] MED LIST changes: +HYDR-756 PO
--- NOTE | 2017-07-21 17:34 | Diagnostic Imaging Report ---
Bilateral screening mammogram 2D views with tomosynthesis. The current study was also evaluated with a Computer Aided Detection (CAD) system. INDICATION: Screening. No current complaints stated on the questionnaire. COMPARISON: 10/29/2015. FINDINGS: The breasts are composed of heterogeneously dense parenchyma which may decrease mammographic sensitivity. Allowing for technique and positional differences, no suspicious change is seen. IMPRESSION: Dense breasts with no definite change. ACR BI-RADS Category 2: Benign findings. Result letter will be mailed to the patient. Note: At least 10% of breast cancer is not imaged by mammography. Dictated by: Dictated on workstation # [id number]
== END ==
LOC: RAD 09:26
PROVIDERS: ATTEND Nurse Practitioner
DX: Z12.31 Encounter for screening mammogram for malignant neoplasm of breast (principal)
CPT/HCPCS: 77067

== ENCOUNTER → 2017-11-16 | Outpatient (CLI) | payer SELFPAY ==
[2017-11-16 11:55] LABS: BASOPHILS % (AUTO) 0 % (0-10); EOSINOPHILS # (AUTO) 0.2 10^3/uL (0.0-0.3); EOSINOPHILS % (AUTO) 2 % (0-10); HEMATOCRIT 46 % (35-52); HEMOGLOBIN 15.8 G/DL (11.5-16.0); LYMPHOCYTES # (AUTO) 2.9 X 10^3 (1.0-4.0); LYMPHOCYTES % (AUTO) 43 % (12-44); MEAN CORPUSCULAR HEMOGLOBIN 32 PG (25-34); MEAN CORPUSCULAR HGB CONC 34 G/DL (32-36); MEAN CORPUSCULAR VOLUME 92 FL (80-99); MEAN PLATELET VOLUME 10.4 FL (7.4-10.4); MONOCYTES # (AUTO) 0.7 X 10^3 (0.0-1.0); MONOCYTES % (AUTO) 11 % (0-12); NEUTROPHILS # (AUTO) 2.9 X 10^3 (1.8-7.8); NEUTROPHILS % (AUTO) 44 % (42-75); PLATELET COUNT 230 10^3/uL (130-400); RED CELL DISTRIBUTION WIDTH 12.6 % (10.0-14.5); WHITE BLOOD COUNT 6.7 10^3/uL (4.3-11.0)
[2017-11-16 12:23] LABS: ALANINE AMINOTRANSFERASE 33 U/L (0-55); ALBUMIN 4.2 GM/DL (3.2-4.5); ALKALINE PHOSPHATASE 75 U/L (40-136); BILIRUBIN,TOTAL 0.8 MG/DL (0.1-1.0); BUN/CREATININE RATIO 13; CALCIUM 9.9 MG/DL (8.5-10.1); CARBON DIOXIDE 25 MMOL/L (21-32); CHLORIDE 106 MMOL/L (98-107); CREATININE SERUM 0.84 MG/DL (0.60-1.30); GFR ESTIMATED > 60; GLUCOSE 97 MG/DL (70-105); POTASSIUM 4.5 MMOL/L (3.6-5.0); SODIUM 141 MMOL/L (135-145); TOTAL PROTEIN 7.1 GM/DL (6.4-8.2)
[2017-11-16 12:45] LABS: FREE T4 (FREE THYROXINE) 1.23 NG/DL (0.70-1.48)
== END ==
LOC: LAB 11:36
PROVIDERS: ATTEND Family Medicine
DX: R23.2 Flushing (principal); R68.83 Chills (without fever)
CPT/HCPCS: 36415; 80053; 82670; 84439; 84443; 85025

== ENCOUNTER 2017-11-22 08:11 | Emergency (ER) | payer SELFPAY ==
[~2017-11-22] VITALS: Ht 160 cm; Wt 68.0 kg
--- OUTSIDE RECORDS SUMMARY | 2017-11-22 08:19 | XMS REPORT | Continuity of Care Document ---
Author Author [facility] Organization [facility] Address Unknown Phone Unavailable Allergies Active Description Code Type Severity Reaction Onset Reported/Identified Relationship to Patient Clinical Status Yes sulfamethoxazole [id number] Drug Allergy Mild N/A 05/25/2009 Yes trimethoprim [id number] Drug Allergy Mild N/A 05/25/2009 Yes Sulfa (Sulfonamide Antibiotics) [id number] Drug Allergy Unknown N/A 2016 Medications There is no data. Problems Date Dx Coded Attending Type Code Diagnosis Diagnosed By 03/09/2012 Ot 782.1 NONSPECIF SKIN ERUPT NEC 03/09/2012 Ot 995.3 ALLERGY, UNSPECIFIED 11/29/2012 Ot 698.9 PRURITIC DISORDER NOS 11/29/2012 Ot 784.2 SWELLING IN HEAD NECK 11/29/2012 Ot 995.3 ALLERGY, UNSPECIFIED 11/29/2012 Ot E000.8 OTHER EXTERNAL CAUSE STATUS 11/29/2012 Ot E928.8 ACCIDENT NEC 12/08/2012 Ot 493.90 ASTHMA, UNSPECIFIED 12/08/2012 Ot 786.2 COUGH 12/08/2012 Ot 786.52 PAINFUL RESPIRATION 11/27/2014 Ot 473.9 11/27/2014 JACQUELINE HE DO S Ot 724.2 11/27/2014 AUGUSTINA HE DOLINE S Ot V76.12 11/27/2014 RUSTAM HE DOQUELINE S Ot 724.5 11/27/2014 RUSTAM HE DOQUELINE S Ot V70.0 11/27/2014 AUGUSTINA HE DOLINE S Ot V76.12 12/02/2014 OPHELIA CONNELLY, MARIANO Bazzi Ot 211.3 BENIGN NEOPLASM LG BOWEL 12/02/2014 OPHELIA CONNELLY, MARIANO Bazzi Ot 562.10 DIVERTICULOSIS COLON (W/O MENT OF HEMORR 12/02/2014 OPHELIA CONNELLY, MARIANO Bazzi Ot V16.0 FAMILY HX-GI MALIGNANCY 12/06/2014 Ot 473.9 12/06/2014 ORENDER DO, S Ot 724.2 12/06/2014 ORENDER DO, S Ot V76.12 12/06/2014 ORENDER DO, S Ot 724.5 12/06/2014 ORENDER DO, S Ot V70.0 12/06/2014 OREND DO, S Ot V76.12 12/06/2014 OPHELIA CONNELLY, MARIANO Bazzi Ot V72.84 12/06/2014 OREND DO, S Ot 724.5 [facility]/06[facility]2014 [facility]0 12/06/2014 OREND DO, S Ot V76.12 12/10/2014 [facility] Ot 724.5 12/10/2014 OREND DO, S Ot V70.0 12/10/2014 [facility] Ot V76.12 01/14/2015 Ot 530.81 01/14/2015 Ot 553.3 01/21/2015 Ot 530.81 01/21/2015 Ot 553.3 02/07/2015 Ot 530.81 02/07/2015 Ot 553.3 02/07/2015 MARAMEC DOSHAMEKA Ot 789.01 02/19/2015 Ot 530.81 02/19/2015 Ot 553.3 02/19/[facility] 7[facility].01 02/20/2015 MARAMEC DOSHAMEKA Ot 574.10 EMILIATH W CHOLECYS NEC 02/20/2015 MARAMEC DOSHAMEKA Ot 574.20 04/09/2015 MARAMEC DOSHAMEKA Ot 574.20 04/09/2015 MARAMEC DOSHAMEKA Ot V72.63 04/09/2015 MARAMEC DOSHAMEKA Ot V74.8 04/17/2015 [facility] Ot 574.20 04/17/2015 [facility] Ot V72.63 04/17/2015 [facility] Ot V74.8 07/03/2015 MANOLO ANAYA DO Ot 244.9 HYPOTHYROIDISM NOS 07/03/2015 MANOLO ANAYA DO Ot 305.1 TOBACCO USE DISORDER 07/03/2015 MANOLO ANAYA DO Ot 782.0 SKIN SENSATION DISTURB 07/03/2015 MANOLO ANAYA DO Ot V58.69 OTH MED,LT,CURRENT USE 07/23/2015 YING WATSON, S Ot 724.2 07/23/2015 MANUELND , S Ot V76.12 08/12/2015 MANUELNDER , S Ot 724.2 08/12/2015 MANUELND , S Ot V76.12 10/08/2015 VANBECELAERE, EVELINA M PHARMACIST IN CHARGE Ot M25.551 10/08/2015 VANBECELAERE, EVELINA M PHARMACIST IN CHARGE Ot M79.651 11/03/2015 BILLYZAKIA S Ot E03.9 11/03/2015 VANBECELAERE, EVELINA M PHARMACIST IN CHARGE Ot M25.551 11/03/2015 VANBECELAERE, EVELINA M PHARMACIST IN CHARGE Ot M79.651 11/03/2015 MAITE LEONARD PHARMACIST IN CHARGE Ot Z12.31 11/18/2015 BILLYZAKIA , S Ot E03.9 11/18/2015 VANBECELAERE, EVELINA M PHARMACIST IN CHARGE Ot M25.551 11/18/2015 VANBECELAERE, EVELINA M PHARMACIST IN CHARGE Ot M79.651 11/18/2015 MAITE LEONARD PHARMACIST IN CHARGE Ot Z12.31 02/20/2016 MUNIRA TABOR FLATCAR WHACKER Ot R10.84 GENERALIZED ABDOMINAL PAIN 02/23/2016 MUNIRA TABOR FLATCAR WHACKER Ot R10.84 GENERALIZED ABDOMINAL PAIN 02/25/2016 MUNIRA TABOR FLATCAR WHACKER Ot R10.84 GENERALIZED ABDOMINAL PAIN 02/25/2016 Ot 473.9 CHRONIC SINUSITIS NOS 02/25/2016 RUSTAM HE DOQUELINE S Ot 724.2 LUMBAGO 02/25/2016 RUSTAM HE DOQUELINE S Ot V76.12 OTH SCREEN MAMMO-MALIGN NEOPLASM OF AMANDA 02/25/2016 RUSTAM HE DOQUELINE S Ot 724.5 BACKACHE NOS 02/25/2016 RUSTAM HE DOQUELINE S Ot V70.0 ROUTINE MEDICAL EXAM 02/25/2016 MANUELNDER AUGUSTINA WATSONLINE S Ot V76.12 OTH SCREEN MAMMO-MALIGN NEOPLASM OF AMANDA 02/25/2016 OPHELIA CONNELLY, MARIANO Bazzi Ot V72.84 EXAM PRE-OPERATIVE NOS 02/25/2016 Ot V72.84 EXAM PRE- OPERATIVE NOS 02/25/2016 Ot 530.81 ESOPHAGEAL REFLUX 02/25/2016 Ot 553.3 DIAPHRAGMATIC HERNIA 02/25/2016 AGRAWAL SHAMEKA WATSON Ot 789.01 ABDOMINAL PAIN, RIGHT UPPER QUADRANT 02/25/2016 AGRAWAL SHAMEKA WATSON Ot 574.20 CHOLELITHIASIS NOS 02/25/2016 MARAMEC SHAMEKA WATSON Ot V72.63 PRE-PROCEDURAL LABORATORY EXAMINATION 02/25/2016 MARAMEC SHAMEKA WATSON Ot V74.8 SCREEN-BACTERIAL DIS NEC 02/25/2016 MANUELNDER , S Ot E03.9 HYPOTHYROIDISM, UNSPECIFIED 02/25/2016 EVELINA SAMSON PHARMACIST IN CHARGE Ot M25.551 PAIN IN RIGHT HIP 02/25/2016 EVELINA SAMSON PHARMACIST IN CHARGE Ot M79.651 PAIN IN RIGHT THIGH 02/25/2016 MAITE LEONARD PHARMACIST IN CHARGE Ot Z12.31 ENCNTR SCREEN MAMMOGRAM FOR MALIGNANT NE 02/25/2016 MUNIRA TABOR FLATCAR WHACKER Ot R10.84 GENERALIZED ABDOMINAL PAIN 02/25/2016 MUNIRA ATBOR FLATCAR WHACKER Ot R10.84 GENERALIZED ABDOMINAL PAIN 02/26/2016 ORENDER DO, S Ot K59.00 CONSTIPATION, UNSPECIFIED 02/26/2016 ORENDER DO, S Ot Z77.29 CONTACT W AND (SUSPECTED ) EXPOSURE TO O 04/20/2016 ORENDER DO, S Ot K59.00 CONSTIPATION, UNSPECIFIED 04/20/2016 ORENDER DO, S Ot Z77.29 CONTACT W AND (SUSPECTED ) EXPOSURE TO O 04/20/2016 MUNIRA TABOR FLATCAR WHACKER Ot R10.84 GENERALIZED ABDOMINAL PAIN 05/06/2016 ORENDER DO, S Ot E03.8 OTHER SPECIFIED HYPOTHYROIDISM 05/06/2016 ORENDER DO, S Ot R73.9 HYPERGLYCEMIA, UNSPECIFIED 05/06/2016 ORENDER , S Ot Z00.00 ENCNTR FOR GENERAL ADULT MEDICAL EXAM W/ 05/23/2016 JAVIER CONNELLY, STEPHAN Mills Ot J02.9 ACUTE PHARYNGITIS, UNSPECIFIED 05/23/2016 JAVIER CONNELLY, STEPHAN Mills Ot K14.8 OTHER DISEASES OF TONGUE 05/23/2016 Ot 473.9 CHRONIC SINUSITIS NOS 05/23/2016 MANUELMANNY WATSON, S Ot 724.2 LUMBAGO 05/23/2016 MANUELNDZAKIA DO, S Ot V76.12 OTH SCREEN MAMMO-MALIGN NEOPLASM OF AMANDA 05/23/2016 MANUELNDER DO, S Ot 724.5 BACKACHE NOS 05/23/2016 YING DO, S Ot V70.0 ROUTINE MEDICAL EXAM 05/23/2016 YING DO, S Ot V76.12 OTH SCREEN MAMMO-MALIGN NEOPLASM OF AMANDA 05/23/2016 OPHELIA CONNELLY, MARIANO Bazzi Ot V72.84 EXAM PRE-OPERATIVE NOS 05/23/2016 Ot V72.84 EXAM PRE- OPERATIVE NOS 05/23/2016 Ot 530.81 ESOPHAGEAL REFLUX 05/23/2016 Ot 553.3 DIAPHRAGMATIC HERNIA 05/23/2016 SHAMEKA AGRAWAL DO Ot 789.01 ABDOMINAL PAIN, RIGHT UPPER QUADRANT 05/23/2016 SHAMEKA AGRAWAL DO Ot 574.20 CHOLELITHIASIS NOS 05/23/2016 SHAMEKA AGRAWAL DO Ot V72.63 PRE-PROCEDURAL LABORATORY EXAMINATION 05/23/2016 SHAMEKA AGRAWAL DO Ot V74.8 SCREEN-BACTERIAL DIS NEC 05/23/2016 YING WATSON, S Ot E03.9 HYPOTHYROIDISM, UNSPECIFIED 05/23/2016 EVELINA SAMSON PHARMACIST IN CHARGE Ot M25.551 PAIN IN RIGHT HIP 05/23/2016 EVELINA SAMSON PHARMACIST IN CHARGE Ot M79.651 PAIN IN RIGHT THIGH 05/23/2016 MAITE LEONARD Ot Z12.31 ENCNTR SCREEN MAMMOGRAM FOR MALIGNANT NE 05/23/2016 MUNIRA TABOR FLATCAR WHACKER Ot R10.84 GENERALIZED ABDOMINAL PAIN 05/23/2016 AUGUSTINA HE DOLINE S Ot K59.00 CONSTIPATION, UNSPECIFIED 05/23/2016 ORENDER DO, S Ot Z77.29 CONTACT W AND (SUSPECTED ) EXPOSURE TO O 05/23/2016 ORENDER DO, S Ot E03.8 OTHER SPECIFIED HYPOTHYROIDISM 05/23/2016 ORENDER DO, S Ot R73.9 HYPERGLYCEMIA, UNSPECIFIED 05/23/2016 ORENDER DO, S Ot Z00.00 ENCNTR FOR GENERAL ADULT MEDICAL EXAM W05/25/2016 JAVIER CONNELLY, STEPHAN Mills Ot J02.9 ACUTE PHARYNGITIS, UNSPECIFIED 05/25/2016 JAVIER CONNELLY, STEPHAN Mills Ot K14.8 OTHER DISEASES OF TONGUE 06/07/2016 MANUELNDER DO, S Ot E03.8 OTHER SPECIFIED HYPOTHYROIDISM 06/07/2016 ORENDER DO, S Ot R73.9 HYPERGLYCEMIA, UNSPECIFIED 06/07/2016 ORENDER DO, S Ot Z00.00 ENCNTR FOR GENERAL ADULT MEDICAL EXAM W07/08/2016 ORENDER DO, S Ot E78.5 HYPERLIPIDEMIA, UNSPECIFIED 07/12/2016 ORENDER DO, S Ot E78.5 HYPERLIPIDEMIA, UNSPECIFIED 07/12/2016 ORENDER DO, S Ot E78.5 HYPERLIPIDEMIA, UNSPECIFIED 09/29/2016 ORENDER DO, S Ot E78.5 HYPERLIPIDEMIA, UNSPECIFIED 09/30/2016 ORENDER DO, S Ot E78.5 HYPERLIPIDEMIA, UNSPECIFIED 10/29/2016 ORENDER DO, S Ot E78.5 HYPERLIPIDEMIA, UNSPECIFIED 12/08/2016 Ot 473.9 CHRONIC SINUSITIS NOS 12/08/2016 ORENDER DO, S Ot 724.2 LUMBAGO 12/08/2016 MANUELNDER DO, S Ot V76.12 OTH SCREEN MAMMO-MALIGN NEOPLASM OF AMANDA 12/08/2016 MANUELNDER DO, S Ot 724.5 BACKACHE NOS 12/08/2016 ORENDER DO, S Ot V70.0 ROUTINE MEDICAL EXAM 12/08/2016 MANUELNDER DO, S Ot V76.12 OTH SCREEN MAMMO-MALIGN NEOPLASM OF AMANDA 12/08/2016 OPHELIA CONNELLY, MARIANO Bazzi Ot V72.84 EXAM PRE-OPERATIVE NOS 12/08/2016 Ot V72.84 EXAM PRE- OPERATIVE NOS 12/08/2016 Ot 530.81 ESOPHAGEAL REFLUX 12/08/2016 Ot 553.3 DIAPHRAGMATIC HERNIA 12/08/2016 AGRAWAL DO, SHAMEKA D Ot 789.01 ABDOMINAL PAIN, RIGHT UPPER QUADRANT 12/08/2016 AGRAWAL DO, SHAMEKA D Ot 574.20 CHOLELITHIASIS NOS 12/08/2016 MARAMEC DO, SHAMEKA D Ot V72.63 PRE-PROCEDURAL LABORATORY EXAMINATION 12/08/2016 AGRAWAL , SHAMEKA D Ot V74.8 SCREEN-BACTERIAL DIS NEC 12/08/2016 MANUELNDAUGUSTINA KOEHLER DOLINE S Ot E03.9 HYPOTHYROIDISM, UNSPECIFIED 12/08/2016 EVELINA SAMSON PHARMACIST IN CHARGE Ot M25.551 PAIN IN RIGHT HIP 12/08/2016 EVELINA SAMSON PHARMACIST IN CHARGE Ot M79.651 PAIN IN RIGHT THIGH 12/08/2016 MAITE LEONARD W PHARMACIST IN CHARGE Ot Z12.31 ENCNTR SCREEN MAMMOGRAM FOR MALIGNANT NE 12/08/2016 MUNIRA TABOR FLATCAR WHACKER Ot R10.84 GENERALIZED ABDOMINAL PAIN 12/08/2016 MANUELNDER AUGUSTINA WATSONLINE S Ot K59.00 CONSTIPATION, UNSPECIFIED 12/08/2016 MANUELNDER , S Ot Z77.29 CONTACT W AND (SUSPECTED ) EXPOSURE TO O 12/08/2016 MANUELNDER , S Ot E03.8 OTHER SPECIFIED HYPOTHYROIDISM 12/08/2016 MANUELNDER , S Ot R73.9 HYPERGLYCEMIA, UNSPECIFIED 12/08/2016 ORENDER DO, S Ot Z00.00 ENCNTR FOR GENERAL ADULT MEDICAL EXAM W/ 12/08/2016 MANUELNDAUGUSTINA KOEHLER DOLINE S Ot E78.5 HYPERLIPIDEMIA, UNSPECIFIED 12/08/2016 Ot 473.9 CHRONIC SINUSITIS NOS 12/08/2016 MANUELNDAUGUSTINA KOEHLER DOLINE S Ot 724.2 LUMBAGO 12/08/2016 AUGUSTINA HE DOLINE S Ot V76.12 OTH SCREEN MAMMO-MALIGN NEOPLASM OF AMANDA 12/08/2016 MANUELNDRUSTAM KOEHLER DOQUELINE S Ot 724.5 BACKACHE NOS 12/08/2016 MANUELNDZAKIA DO, S Ot V70.0 ROUTINE MEDICAL EXAM 12/08/2016 YING WATSON, S Ot V76.12 OTH SCREEN MAMMO-MALIGN NEOPLASM OF AMANDA 12/08/2016 OPHELIA CONNELLY, MARIANO Bazzi Ot V72.84 EXAM PRE-OPERATIVE NOS 12/08/2016 Ot V72.84 EXAM PRE- OPERATIVE NOS 12/08/2016 Ot 530.81 ESOPHAGEAL REFLUX 12/08/2016 Ot 553.3 DIAPHRAGMATIC HERNIA 12/08/2016 AGRAWAL SHAMEKA WATSON Ot 789.01 ABDOMINAL PAIN, RIGHT UPPER QUADRANT 12/08/2016 AGRAWAL SHAMEKA WATSON Ot 574.20 CHOLELITHIASIS NOS 12/08/2016 [facility] Ot V72.63 PRE-PROCEDURAL LABORATORY EXAMINATION 12/08/2016 MARAMEC SHAMEKA WATSON Ot V74.8 SCREEN-BACTERIAL DIS NEC 12/08/2016 YING WATSON, S Ot E03.9 HYPOTHYROIDISM, UNSPECIFIED 12/08/2016 EVELINA SAMSON PHARMACIST IN CHARGE Ot M25.551 PAIN IN RIGHT HIP 12/08/2016 EVELINA SAMSON PHARMACIST IN CHARGE Ot M79.651 PAIN IN RIGHT THIGH 12/08/2016 MAITE LEONARD PHARMACIST IN CHARGE Ot Z12.31 ENCNTR SCREEN MAMMOGRAM FOR MALIGNANT NE 12/08/2016 MUNIRA TABOR FLATCAR WHACKER Ot R10.84 GENERALIZED ABDOMINAL PAIN 12/08/2016 MANUELNDER DO, S Ot K59.00 CONSTIPATION, UNSPECIFIED 12/08/2016 ORENDER DO, S Ot Z77.29 CONTACT W AND (SUSPECTED ) EXPOSURE TO O 12/08/2016 ORENDER DO, S Ot E03.8 OTHER SPECIFIED HYPOTHYROIDISM 12/08/2016 ORENDER DO, S Ot R73.9 HYPERGLYCEMIA, UNSPECIFIED 12/08/2016 ORENDER DO, S Ot Z00.00 ENCNTR FOR GENERAL ADULT MEDICAL EXAM W/ 12/08/2016 MANUELNDER DO, S Ot E78.5 HYPERLIPIDEMIA, UNSPECIFIED 12/08/2016 MANOLO ANAYA DO Ot F17.210 NICOTINE DEPENDENCE, CIGARETTES, UNCOMPL 12/08/2016 MANOLO ANAYA DO Ot R53.1 WEAKNESS 12/08/2016 MANOLO ANAYA DO Ot Z79.899 OTHER PARTS ROOM ASSOCIATE (CURRENT) DRUG THERAPY 12/09/2016 MANOLO ANAYA DO Ot F17.210 NICOTINE DEPENDENCE, CIGARETTES, UNCOMPL 12/09/2016 MANOLO ANAYA DO Ot R53.1 WEAKNESS 12/09/2016 MANOLO ANAYA DO Ot Z79.899 OTHER MCC (CURRENT) DRUG THERAPY 03/23/2017 MANOLO ANAYA DO Ot R60.0 LOCALIZED EDEMA 03/23/2017 Ot 473.9 CHRONIC SINUSITIS NOS 03/23/2017 JACQUELINE HE DO Ot 724.2 LUMBAGO 03/23/2017 JACQUELINE HE DO Ot V76.12 OTH SCREEN MAMMO-MALIGN NEOPLASM OF AMANDA 03/23/2017 JACQUELINE HE DO Ot 724.5 BACKACHE NOS 03/23/2017 JACQUELINE HE DO Ot V70.0 ROUTINE MEDICAL EXAM 03/23/2017 JACQUELINE HE DO Ot V76.12 OTH SCREEN MAMMO-MALIGN NEOPLASM OF AMANDA 03/23/2017 OPHELIA CONNELLY, MARIANO Bazzi Ot V72.84 EXAM PRE-OPERATIVE NOS 03/23/2017 Ot V72.84 EXAM PRE- OPERATIVE NOS 03/23/2017 Ot 530.81 ESOPHAGEAL REFLUX 03/23/2017 Ot 553.3 DIAPHRAGMATIC HERNIA 03/23/2017 SHAMEKA AGRAWAL DO Ot 789.01 ABDOMINAL PAIN, RIGHT UPPER QUADRANT 03/23/2017 SHAMEKA AGRAWAL DO Ot 574.20 CHOLELITHIASIS NOS 03/23/2017 SHAMEKA AGRAWAL DO Ot V72.63 PRE-PROCEDURAL LABORATORY EXAMINATION 03/23/2017 SHAMEKA AGRAWAL DO Ot V74.8 SCREEN-BACTERIAL DIS NEC 03/23/2017 JACQUELINE HE DO S Ot E03.9 HYPOTHYROIDISM, UNSPECIFIED 03/23/2017 EVELINA SAMSON Ot M25.551 PAIN IN RIGHT HIP 03/23/2017 EVELINA SAMSONP Ot M79.651 PAIN IN RIGHT THIGH 03/23/2017 HORACIOMAITE W PHARMACIST IN CHARGE Ot Z12.31 ENCNTR SCREEN MAMMOGRAM FOR MALIGNANT NE 03/23/2017 MUNIRA TABOR FLATCAR WHACKER Ot R10.84 GENERALIZED ABDOMINAL PAIN 03/23/2017 ORENDER DO, S Ot K59.00 CONSTIPATION, UNSPECIFIED 03/23/2017 ORENDER DO, S Ot Z77.29 CONTACT W AND (SUSPECTED ) EXPOSURE TO O 03/23/2017 ORENDER DO, S Ot E03.8 OTHER SPECIFIED HYPOTHYROIDISM 03/23/2017 ORENDER DO, S Ot R73.9 HYPERGLYCEMIA, UNSPECIFIED 03/23/2017 ORENDER DO, S Ot Z00.00 ENCNTR FOR GENERAL ADULT MEDICAL EXAM W/ 03/23/2017 ORENDER DO, S Ot E78.5 HYPERLIPIDEMIA, UNSPECIFIED 03/27/2017 JACLYNMANOLO La DO K Ot R60.0 LOCALIZED EDEMA 05/13/2017 MANUELNDER DO, S Ot M54.5 LOW BACK PAIN 05/13/2017 MANUELNDER DO, S Ot R60.9 EDEMA, UNSPECIFIED 05/13/2017 Ot 473.9 CHRONIC SINUSITIS NOS 05/13/2017 ORENDER DO, S Ot 724.2 LUMBAGO 05/13/2017 MANUELNDER DO, S Ot V76.12 OTH SCREEN MAMMO-MALIGN NEOPLASM OF AMANDA 05/13/2017 ORENDER DO, S Ot 724.5 BACKACHE NOS 05/13/2017 MANUELNDER DO, S Ot V70.0 ROUTINE MEDICAL EXAM 05/13/2017 MANUELNDER DO, S Ot V76.12 OTH SCREEN MAMMO-MALIGN NEOPLASM OF AMANDA 05/13/2017 OPHELIA CONNELLY, MARIANO Bazzi Ot V72.84 EXAM PRE-OPERATIVE NOS 05/13/2017 Ot V72.84 EXAM PRE- OPERATIVE NOS 05/13/2017 Ot 530.81 ESOPHAGEAL REFLUX 05/13/2017 Ot 553.3 DIAPHRAGMATIC HERNIA 05/13/2017 SHAMEKA AGRAWAL DO Ot 789.01 ABDOMINAL PAIN, RIGHT UPPER QUADRANT 05/13/2017 SHAMEKA AGRAWAL DO Ot 574.20 CHOLELITHIASIS NOS 05/13/2017 SHAMEKA AGRAWAL DO Ot V72.63 PRE-PROCEDURAL LABORATORY EXAMINATION 05/13/2017 SHAMEKA AGRAWAL DO Ot V74.8 SCREEN-BACTERIAL DIS NEC 05/13/2017 MANUELNDER DO, S Ot E03.9 HYPOTHYROIDISM, UNSPECIFIED 05/13/2017 EVELINA SAMSON PHARMACIST IN CHARGE Ot M25.551 PAIN IN RIGHT HIP 05/13/2017 EVELINA SAMSON PHARMACIST IN CHARGE Ot M79.651 PAIN IN RIGHT THIGH 05/13/2017 MAITE LEONARD W PHARMACIST IN CHARGE Ot Z12.31 ENCNTR SCREEN MAMMOGRAM FOR MALIGNANT NE 05/13/2017 MUNIRA TABOR FLATCAR WHACKER Ot R10.84 GENERALIZED ABDOMINAL PAIN 05/13/2017 ORENDER DO, S Ot K59.00 CONSTIPATION, UNSPECIFIED 05/13/2017 ORENDER DO, S Ot Z77.29 CONTACT W AND (SUSPECTED ) EXPOSURE TO O 05/13/2017 ORENDER DO, S Ot E03.8 OTHER SPECIFIED HYPOTHYROIDISM 05/13/2017 ORENDER DO, S Ot R73.9 HYPERGLYCEMIA, UNSPECIFIED 05/13/2017 ORENDER DO, S Ot Z00.00 ENCNTR FOR GENERAL ADULT MEDICAL EXAM W/ 05/13/2017 ORENDER DO, S Ot E78.5 HYPERLIPIDEMIA, UNSPECIFIED 05/13/2017 ORENDER DO, S Ot M54.5 LOW BACK PAIN 05/13/2017 MANUELNDER DO, S Ot R60.9 EDEMA, UNSPECIFIED 05/15/2017 THIEN BELTRAN MD Ot E03.9 HYPOTHYROIDISM, UNSPECIFIED 05/15/2017 THIEN BELTRAN MD Ot F17.210 NICOTINE DEPENDENCE, CIGARETTES, UNCOMPL 05/15/2017 THIEN BELTRAN MD Ot K21.9 GASTRO-ESOPHAGEAL REFLUX DISEASE WITHOUT 05/15/2017 THIEN BELTRAN MD Ot K59.09 OTHER CONSTIPATION 05/15/2017 THIEN BELTRAN MD Ot M47.9 SPONDYLOSIS, UNSPECIFIED 05/15/2017 THIEN BELTRAN MD Ot M54.16 RADICULOPATHY, LUMBAR REGION 05/15/2017 THIEN BELTRAN MD Ot M79.604 PAIN IN RIGHT LEG 05/15/2017 THINE BELTRAN MD Ot Z87.42 PERSONAL HISTORY OF OTH DISEASES OF THE 05/15/2017 THIEN BELTRAN MD Ot Z90.49 ACQUIRED ABSENCE OF OTHER SPECIFIED PART 05/15/2017 THIEN BELTRAN MD Ot Z98.51 TUBAL LIGATION STATUS 05/15/2017 Ot 473.9 CHRONIC SINUSITIS NOS 05/15/2017 JACQUELINE HE DO S Ot 724.2 LUMBAGO 05/15/2017 JACQUELINE HE DO S Ot V76.12 OTH SCREEN MAMMO-MALIGN NEOPLASM OF AMANDA 05/15/2017 JACQUELINE HE DO S Ot 724.5 BACKACHE NOS 05/15/2017 JACQUELINE HE DO S Ot V70.0 ROUTINE MEDICAL EXAM 05/15/2017 JACQUELINE HE DO S Ot V76.12 OTH SCREEN MAMMO-MALIGN NEOPLASM OF AMANDA 05/15/2017 OPHELIA CONNELLY, MARIANO Bazzi Ot V72.84 EXAM PRE-OPERATIVE NOS 05/15/2017 Ot V72.84 EXAM PRE- OPERATIVE NOS 05/15/2017 Ot 530.81 ESOPHAGEAL REFLUX 05/15/2017 Ot 553.3 DIAPHRAGMATIC HERNIA 05/15/2017 SHAMEKA AGRAWAL DO Ot 789.01 ABDOMINAL PAIN, RIGHT UPPER QUADRANT 05/15/2017 SHAMEKA AGRAWAL DO Ot 574.20 CHOLELITHIASIS NOS 05/15/2017 SHAMEKA AGRAWAL DO Ot V72.63 PRE-PROCEDURAL LABORATORY EXAMINATION 05/15/2017 SHAMEKA AGRAWAL DO Ot V74.8 SCREEN-BACTERIAL DIS NEC 05/15/2017 JACQUELINE HE DO S Ot E03.9 HYPOTHYROIDISM, UNSPECIFIED 05/15/2017 EVELINA SAMSON Ot M25.551 PAIN IN RIGHT HIP 05/15/2017 EVELINA SAMSON Ot M79.651 PAIN IN RIGHT THIGH 05/15/2017 MAITE LEONARD Ot Z12.31 ENCNTR SCREEN MAMMOGRAM FOR MALIGNANT NE 05/15/2017 MUNIRA TABOR APRN Ot R10.84 GENERALIZED ABDOMINAL PAIN 05/15/2017 RUSTAM HE DOQUELINE S Ot K59.00 CONSTIPATION, UNSPECIFIED 05/15/2017 MANUELNDER AUGUSTINA WATSONLINE S Ot Z77.29 CONTACT W AND (SUSPECTED ) EXPOSURE TO O 05/15/2017 MANUELNDER DO, S Ot E03.8 OTHER SPECIFIED HYPOTHYROIDISM 05/15/2017 MANUELNDER DO, S Ot R73.9 HYPERGLYCEMIA, UNSPECIFIED 05/15/2017 ORENDER DO, S Ot Z00.00 ENCNTR FOR GENERAL ADULT MEDICAL EXAM W/ 05/15/2017 MANUELNDER AUGUSTINA WATSONLINE S Ot E78.5 HYPERLIPIDEMIA, UNSPECIFIED 05/15/2017 MANUELNDER DO, S Ot M54.5 LOW BACK PAIN 05/15/2017 MANUELNDER AUGUSTINA WATSONLINE S Ot R60.9 EDEMA, UNSPECIFIED 05/17/2017 THIEN BELTRAN MD Ot E03.9 HYPOTHYROIDISM, UNSPECIFIED 05/17/2017 THIEN BELTRAN MD Ot F17.210 NICOTINE DEPENDENCE, CIGARETTES, UNCOMPL 05/17/2017 THIEN BELTRAN MD Ot K21.9 GASTRO-ESOPHAGEAL REFLUX DISEASE WITHOUT 05/17/2017 THIEN BELTRAN MD Ot K59.09 OTHER CONSTIPATION 05/17/2017 THIEN BELTRAN MD Ot M47.9 SPONDYLOSIS, UNSPECIFIED 05/17/2017 THIEN BELTRAN MD Ot M54.16 RADICULOPATHY, LUMBAR REGION 05/17/2017 THIEN BELTRAN MD Ot M79.604 PAIN IN RIGHT LEG 05/17/2017 THIEN BELTRAN MD Ot Z87.42 PERSONAL HISTORY OF OTH DISEASES OF THE 05/17/2017 THIEN BELTRAN MD Ot Z90.49 ACQUIRED ABSENCE OF OTHER SPECIFIED PART 05/17/2017 THIEN BELTRAN MD Ot Z98.51 TUBAL LIGATION STATUS 05/25/2017 MANUELNDER S Ot M54.5 LOW BACK PAIN 05/25/2017 MANUELNDER , S Ot R60.9 EDEMA, UNSPECIFIED 07/13/2017 Ot 473.9 CHRONIC SINUSITIS NOS 07/13/2017 MANUELNDER S Ot 724.2 LUMBAGO 07/13/2017 MANUELNDER DO, S Ot V76.12 OTH SCREEN MAMMO-MALIGN NEOPLASM OF AMANDA 07/13/2017 MANUELNDZAKIA DO, S Ot 724.5 BACKACHE NOS 07/13/2017 YING WATSON, S Ot V70.0 ROUTINE MEDICAL EXAM 07/13/2017 MANUELNDZAKIA WATSON, S Ot V76.12 OTH SCREEN MAMMO-MALIGN NEOPLASM OF AMANDA 07/13/2017 OPHELIA CONNELLY, MARIANO M Ot V72.84 EXAM PRE-OPERATIVE NOS 07/13/2017 Ot V72.84 EXAM PRE- OPERATIVE NOS 07/13/2017 Ot 530.81 ESOPHAGEAL REFLUX 07/13/2017 Ot 553.3 DIAPHRAGMATIC HERNIA 07/13/2017 SHAMEKA AGRAWAL DO Ot 789.01 ABDOMINAL PAIN, RIGHT UPPER QUADRANT 07/13/2017 SHAMEKA AGRAWAL DO Ot 574.20 CHOLELITHIASIS NOS 07/13/2017 SHAMEKA AGRAWAL DO Ot V72.63 PRE-PROCEDURAL LABORATORY EXAMINATION 07/13/2017 SHAMEKA AGRAWAL DO Ot V74.8 SCREEN-BACTERIAL DIS NEC 07/13/2017 YING WATSON, S Ot E03.9 HYPOTHYROIDISM, UNSPECIFIED 07/13/2017 VANEVELINA OCHOA PHARMACIST IN CHARGE Ot M25.551 PAIN IN RIGHT HIP 07/13/2017 EVELINA SAMSON M PHARMACIST IN CHARGE Ot M79.651 PAIN IN RIGHT THIGH 07/13/2017 MAITE LEONARD PHARMACIST IN CHARGE Ot Z12.31 ENCNTR SCREEN MAMMOGRAM FOR MALIGNANT NE 07/13/2017 MUNIRA TABOR APRN Ot R10.84 GENERALIZED ABDOMINAL PAIN 07/13/2017 MANUELNDER DO, S Ot K59.00 CONSTIPATION, UNSPECIFIED 07/13/2017 MANUELNDER DO, S Ot Z77.29 CONTACT W AND (SUSPECTED ) EXPOSURE TO O 07/13/2017 MANUELNDER DO, S Ot E03.8 OTHER SPECIFIED HYPOTHYROIDISM 07/13/2017 MANUELNDER DO, S Ot R73.9 HYPERGLYCEMIA, UNSPECIFIED 07/13/2017 ORENDER DO, S Ot Z00.00 ENCNTR FOR GENERAL ADULT MEDICAL EXAM W/ 07/13/2017 MANUELNDER DO, S Ot E78.5 HYPERLIPIDEMIA, UNSPECIFIED 07/13/2017 MANUELNDZAKIA WATSON, S Ot M54.5 LOW BACK PAIN 07/13/2017 YING WATSON S Ot R60.9 EDEMA, UNSPECIFIED 07/20/2017 Ot 473.9 CHRONIC SINUSITIS NOS 07/20/2017 YING WATSON, S Ot 724.2 LUMBAGO 07/20/2017 YING WATSON S Ot V76.12 OTH SCREEN MAMMO-MALIGN NEOPLASM OF AMANDA 07/20/2017 YING WATSON, S Ot 724.5 BACKACHE NOS 07/20/2017 AUGUSTINA HE DOLINE S Ot V70.0 ROUTINE MEDICAL EXAM 07/20/2017 YING WATSON S Ot V76.12 OTH SCREEN MAMMO-MALIGN NEOPLASM OF AMANDA 07/20/2017 OPHELIA CONNELLY, MARIANO Bazzi Ot V72.84 EXAM PRE-OPERATIVE NOS 07/20/2017 Ot V72.84 EXAM PRE- OPERATIVE NOS 07/20/2017 Ot 530.81 ESOPHAGEAL REFLUX 07/20/2017 Ot 553.3 DIAPHRAGMATIC HERNIA 07/20/2017 SHAMEKA AGRAWAL DO Ot 789.01 ABDOMINAL PAIN, RIGHT UPPER QUADRANT 07/20/2017 SHAMEKA AGRAWAL DO Ot 574.20 CHOLELITHIASIS NOS 07/20/2017 SHAMEKA AGRAWAL DO Ot V72.63 PRE-PROCEDURAL LABORATORY EXAMINATION 07/20/2017 SHAMEKA AGRAWAL DO Ot V74.8 SCREEN-BACTERIAL DIS NEC 07/20/2017 YING WATSON S Ot E03.9 HYPOTHYROIDISM, UNSPECIFIED 07/20/2017 EVELINA SAMSON PHARMACIST IN CHARGE Ot M25.551 PAIN IN RIGHT HIP 07/20/2017 EVELINA SAMSON PHARMACIST IN CHARGE Ot M79.651 PAIN IN RIGHT THIGH 07/20/2017 MAITE LEONARD PHARMACIST IN CHARGE Ot Z12.31 ENCNTR SCREEN MAMMOGRAM FOR MALIGNANT NE 07/20/2017 MUNIRA TABOR APRN Ot R10.84 GENERALIZED ABDOMINAL PAIN 07/20/2017 MANUELTITUSZAKIA AUGUSTINA WATSONLINE S Ot K59.00 CONSTIPATION, UNSPECIFIED 07/20/2017 ORENDJACQUELINE KOEHLER DO S Ot Z77.29 CONTACT W AND (SUSPECTED ) EXPOSURE TO O 07/20/2017 AUGUSTINA HE DOLINE S Ot E03.8 OTHER SPECIFIED HYPOTHYROIDISM 07/20/2017 MANUELNDER , S Ot R73.9 HYPERGLYCEMIA, UNSPECIFIED 07/20/2017 MANUELNDER , S Ot Z00.00 ENCNTR FOR GENERAL ADULT MEDICAL EXAM W/ 07/20/2017 MANUELNDAUGUSTINA KOEHLER DOLINE S Ot E78.5 HYPERLIPIDEMIA, UNSPECIFIED 07/20/2017 MANUELNDER DO, S Ot M54.5 LOW BACK PAIN 07/20/2017 MANUELNDZAKIA WATSON, S Ot R60.9 EDEMA, UNSPECIFIED 07/21/2017 MAITE LEONARD Ot Z12.31 ENCNTR SCREEN MAMMOGRAM FOR MALIGNANT NE 11/16/2017 Ot 473.9 CHRONIC SINUSITIS NOS 11/16/2017 AUGUSTINA HE DOLINE S Ot 724.2 LUMBAGO 11/16/2017 AUGUSTINA HE DOLINE S Ot V76.12 OTH SCREEN MAMMO-MALIGN NEOPLASM OF AMANDA 11/16/2017 AUGUSTINA HE DOLINE S Ot 724.5 BACKACHE NOS 11/16/2017 JACQUELINE HE DO S Ot V70.0 ROUTINE MEDICAL EXAM 11/16/2017 AUGUSTINA HE DOLINE S Ot V76.12 OTH SCREEN MAMMO-MALIGN NEOPLASM OF AMANDA 11/16/2017 OPHELIA CONNELLY, MARIANO Bazzi Ot V72.84 EXAM PRE-OPERATIVE NOS 11/16/2017 Ot V72.84 EXAM PRE- OPERATIVE NOS 11/16/2017 Ot 530.81 ESOPHAGEAL REFLUX 11/16/2017 Ot 553.3 DIAPHRAGMATIC HERNIA 11/16/2017 SHAMEKA AGRAWAL DO Ot 789.01 ABDOMINAL PAIN, RIGHT UPPER QUADRANT 11/16/2017 SHAMEKA AGRAWAL DO Ot 574.20 CHOLELITHIASIS NOS 11/16/2017 SHAMEKA AGRAWAL DO Ot V72.63 PRE-PROCEDURAL LABORATORY EXAMINATION 11/16/2017 SHAMEKA AGRAWAL DO Ot V74.8 SCREEN-BACTERIAL DIS NEC 11/16/2017 AUGUSTINA HE DOLINE S Ot E03.9 HYPOTHYROIDISM, UNSPECIFIED 11/16/2017 EVELINA SAMSON PHARMACIST IN CHARGE Ot M25.551 PAIN IN RIGHT HIP 11/16/2017 EVELINA SAMSON PHARMACIST IN CHARGE Ot M79.651 PAIN IN RIGHT THIGH 11/16/2017 MAITE LEONARD PHARMACIST IN CHARGE Ot Z12.31 ENCNTR SCREEN MAMMOGRAM FOR MALIGNANT NE 11/16/2017 MUNIRA TABOR FLATCAR WHACKER Ot R10.84 GENERALIZED ABDOMINAL PAIN 11/16/2017 ORENDER DO, S Ot K59.00 CONSTIPATION, UNSPECIFIED 11/16/2017 ORENDER DO, S Ot Z77.29 CONTACT W AND (SUSPECTED ) EXPOSURE TO O 11/16/2017 ORENDER DO, S Ot E03.8 OTHER SPECIFIED HYPOTHYROIDISM 11/16/2017 ORENDER DO, S Ot R73.9 HYPERGLYCEMIA, UNSPECIFIED 11/16/2017 ORENDER DO, S Ot Z00.00 [facility] W/ 11/16/2017 ORENDER DO, S Ot E78.5 HYPERLIPIDEMIA, UNSPECIFIED 11/16/2017 ORENDER DO, S Ot M54.5 LOW BACK PAIN 11/16/2017 ORENDER DO, S Ot R60.9 EDEMA, UNSPECIFIED 11/16/2017 MAITE LEONARD PHARMACIST IN CHARGE Ot Z12.31 ENCNTR SCREEN MAMMOGRAM FOR MALIGNANT NE 11/17/2017 ORENDER DO, S Ot R23.2 FLUSHING 11/17/2017 ORENDER DO, S Ot R68.83 CHILLS (WITHOUT FEVER) Procedures There is no data. Results Test Result Range Lipid 1996 panel - 07/07/16 10:39 Serum or plasma triglyceride measurement (mass/volume) 126 mg/dL <150 Serum or plasma cholesterol measurement (mass/volume) 226 mg/dL < 200 Serum or plasma cholesterol in HDL measurement (mass/volume) 65 mg/ dL 40-60 Cholesterol in LDL [mass/volume] in serum or plasma by direct assay 141 mg/dL 1-129 Serum or plasma cholesterol in VLDL measurement (mass/volume) 25 mg/ dL 5-40 Complete blood count (CBC) with automated white blood cell (WBC) differential - 12/08/16 16:05 Blood leukocytes automated count (number/volume) 7.0 10*3/uL 4.3-11.0 Blood erythrocytes automated count (number/volume) 4.96 10*6/uL 4.35-5.85 Venous blood hemoglobin measurement (mass/volume) 15.2 g/dL 11.5-16.0 Blood hematocrit (volume fraction) 45 % 35-52 Automated erythrocyte mean corpuscular volume 91 [foz_us] 80-99 Automated erythrocyte mean corpuscular hemoglobin (mass per erythrocyte) 31 pg 25-34 Automated erythrocyte mean corpuscular hemoglobin concentration measurement ( mass/volume) 34 g/dL 32-36 Automated erythrocyte distribution width ratio 12.5 % 10.0-14.5 Automated blood platelet count (count/volume) 240 10*3/uL 130-400 Automated blood platelet mean volume measurement 10.4 [foz_us] 7.4-10.4 Automated blood neutrophils/100 leukocytes 55 % 42-75 Automated blood lymphocytes/100 leukocytes 33 % 12-44 Blood monocytes/100 leukocytes 11 % 0-12 Automated blood eosinophils/100 leukocytes 1 % 0-10 Automated blood basophils/100 leukocytes 0 % 0-10 Blood neutrophils automated count (number/volume) 3.8 10*3 1.8-7.8 Blood lymphocytes automated count (number/volume) 2.3 10*3 1.0-4.0 Blood monocytes automated count (number/volume) 0.8 10*3 0.0-1.0 Automated eosinophil count 0.1 10*3/uL 0.0-0.3 Automated blood basophil count (count/volume) 0.0 10*3/uL 0.0-0.1 Comprehensive metabolic panel - 12/08/16 16:05 Serum or plasma sodium measurement (moles/volume) 141 mmol/L 135-145 Serum or plasma potassium measurement (moles/volume) 3.9 mmol/L 3.6-5.0 Serum or plasma chloride measurement (moles/volume) 108 mmol/L 98-107 Carbon dioxide 23 mmol/L 21-32 Serum or plasma anion gap determination (moles/volume) 10 mmol/L 5-14 Serum or plasma urea nitrogen measurement (mass/volume) 8 mg/dL 7-18 Serum or plasma creatinine measurement (mass/volume) 0.80 mg/dL 0.60-1.30 Serum or plasma urea nitrogen/creatinine mass ratio 10 NRG Serum or plasma creatinine measurement with calculation of estimated glomerular filtration rate > NRG Serum or plasma glucose measurement (mass/volume) 122 mg/dL 70-105 Serum or plasma calcium measurement (mass/volume) 10.0 mg/dL 8.5-10.1 Serum or plasma total bilirubin measurement (mass/volume) 0.6 mg/dL 0.1-1.0 Serum or plasma alkaline phosphatase measurement (enzymatic activity/volume) 68 U/L 40-136 Serum or plasma aspartate aminotransferase measurement (enzymatic activity/ volume) 29 U/L 5-34 Serum or plasma alanine aminotransferase measurement (enzymatic activity/volume ) 36 U/L 0-55 Serum or plasma protein measurement (mass/volume) 6.5 g/dL 6.4-8.2 Serum or plasma albumin measurement (mass/volume) 4.2 g/dL 3.2-4.5 Serum or plasma creatine kinase measurement (enzymatic activity/volume) - 12/08 16:05 Serum or plasma creatine kinase measurement (enzymatic activity/volume) 81 U/L 29-168 Magnesium - 12/08/16 16:05 Magnesium 2.0 mg/dL 1.8-2.4 Serum or plasma thyrotropin measurement by detection limit <=0.05 miu/l (units/ volume) - 12/08/16 16:05 Serum or plasma thyrotropin measurement by detection limit <=0.05 miu/l (units/ volume) 0.98 u[iU]/mL 0.35-4.94 Urine drug screening test - 12/08/16 16:38 Urine phencyclidine detection by screening method NEGATIVE NEGATIVE Urine benzodiazepines detection by screening method NEGATIVE NEGATIVE Urine cocaine detection NEGATIVE NEGATIVE Urine amphetamines detection by screening method NEGATIVE NEGATIVE Urine methamphetamine detection by screening method NEGATIVE NEGATIVE Urine cannabinoids detection by screening method NEGATIVE NEGATIVE Urine opiates detection by screening method NEGATIVE NEGATIVE Urine barbiturates detection NEGATIVE NEGATIVE Screening urine tricyclic antidepressants detection NEGATIVE NEGATIVE Urine methadone detection by screening method NEGATIVE NEGATIVE Urine oxycodone detection NEGATIVE NEGATIVE Urine propoxyphene detection NEGATIVE NEGATIVE Complete urinalysis with reflex to culture - 12/08/16 16:38 Urine color determination YELLOW NRG Urine clarity determination CLEAR NRG Urine pH measurement by test strip 7 5-9 Specific gravity of urine by test strip 1.005 1.016- 1.022 Urine protein assay by test strip, semi-quantitative NEGATIVE NEGATIVE Urine glucose detection by automated test strip NEGATIVE NEGATIVE Erythrocytes detection in urine sediment by light microscopy NEGATIVE NEGATIVE Urine ketones detection by automated test strip NEGATIVE NEGATIVE Urine nitrite detection by test strip NEGATIVE NEGATIVE Urine total bilirubin detection by test strip NEGATIVE NEGATIVE Urine urobilinogen measurement by automated test strip (mass/volume) NORMAL NORMAL Urine leukocyte esterase detection by dipstick NEGATIVE NEGATIVE Automated urine sediment erythrocyte count by microscopy (number/high power field) NONE NRG Automated urine sediment leukocyte count by microscopy (number/high power field ) NONE NRG Bacteria detection in urine sediment by light microscopy NEGATIVE NRG Squamous epithelial cells detection in urine sediment by light microscopy 0-2 NRG Crystals detection in urine sediment by light microscopy NONE NRG Casts detection in urine sediment by light microscopy NONE NRG Mucus detection in urine sediment by light microscopy NEGATIVE NRG Complete urinalysis with reflex to culture NO NRG Complete urinalysis with reflex to culture - 03/23/17 17:50 Urine color determination YELLOW NRG Urine clarity determination CLEAR NRG Urine pH measurement by test strip 7 5-9 Specific gravity of urine by test strip 1.005 1.016- 1.022 Urine protein assay by test strip, semi-quantitative NEGATIVE NEGATIVE Urine glucose detection by automated test strip NEGATIVE NEGATIVE Erythrocytes detection in urine sediment by light microscopy NEGATIVE NEGATIVE Urine ketones detection by automated test strip NEGATIVE NEGATIVE Urine nitrite detection by test strip NEGATIVE NEGATIVE Urine total bilirubin detection by test strip NEGATIVE NEGATIVE Urine urobilinogen measurement by automated test strip (mass/volume) NORMAL NORMAL Urine leukocyte esterase detection by dipstick NEGATIVE NEGATIVE Automated urine sediment erythrocyte count by microscopy (number/high power field) NONE NRG Automated urine sediment leukocyte count by microscopy (number/high power field ) RARE NRG Bacteria detection in urine sediment by light microscopy TRACE NRG Squamous epithelial cells detection in urine sediment by light microscopy 5-10 NRG Crystals detection in urine sediment by light microscopy NONE NRG Casts detection in urine sediment by light microscopy NONE NRG Mucus detection in urine sediment by light microscopy NEGATIVE NRG Complete urinalysis with reflex to culture NO NRG Complete blood count (CBC) with automated white blood cell (WBC) differential - 03/23/17 18:23 Blood leukocytes automated count (number/volume) 8.0 10*3/uL 4.3-11.0 Blood erythrocytes automated count (number/volume) 4.95 10*6/uL 4.35-5.85 Venous blood hemoglobin measurement (mass/volume) 15.1 g/dL 11.5-16.0 Blood hematocrit (volume fraction) 45 % 35-52 Automated erythrocyte mean corpuscular volume 91 [foz_us] 80-99 Automated erythrocyte mean corpuscular hemoglobin (mass per erythrocyte) 31 pg 25-34 Automated erythrocyte mean corpuscular hemoglobin concentration measurement ( mass/volume) 34 g/dL 32-36 Automated erythrocyte distribution width ratio 12.9 % 10.0-14.5 Automated blood platelet count (count/volume) 264 10*3/uL 130-400 Automated blood platelet mean volume measurement 10.1 [foz_us] 7.4-10.4 Automated blood neutrophils/100 leukocytes 61 % 42-75 Automated blood lymphocytes/100 leukocytes 29 % 12-44 Blood monocytes/100 leukocytes 9 % 0-12 Automated blood eosinophils/100 leukocytes 1 % 0-10 Automated blood basophils/100 leukocytes 0 % 0-10 Blood neutrophils automated count (number/volume) 4.9 10*3 1.8-7.8 Blood lymphocytes automated count (number/volume) 2.4 10*3 1.0-4.0 Blood monocytes automated count (number/volume) 0.7 10*3 0.0-1.0 Automated eosinophil count 0.1 10*3/uL 0.0-0.3 Automated blood basophil count (count/volume) 0.0 10*3/uL 0.0-0.1 PT panel in platelet poor plasma by coagulation assay - 03/23/17 18:23 Prothrombin time (PT) in platelet poor plasma by coagulation assay 12.1 s 12.2-14.7 INR in platelet poor plasma or blood by coagulation assay 0.9 0.8-1.4 Activated partial thromboplastin time (aPTT) in platelet poor plasma bycoagulation assay - 03/23/17 18:23 Activated partial thromboplastin time (aPTT) in platelet poor plasma bycoagulation assay 26 s 24-35 Comprehensive metabolic panel - 03/23/17 18:23 Serum or plasma sodium measurement (moles/volume) 141 mmol/L 135-145 Serum or plasma potassium measurement (moles/volume) 3.9 mmol/L 3.6-5.0 Serum or plasma chloride measurement (moles/volume) 106 mmol/L 98-107 Carbon dioxide 24 mmol/L 21-32 Serum or plasma anion gap determination (moles/volume) 11 mmol/L 5-14 Serum or plasma urea nitrogen measurement (mass/volume) 7 mg/dL 7-18 Serum or plasma creatinine measurement (mass/volume) 0.75 mg/dL 0.60-1.30 Serum or plasma urea nitrogen/creatinine mass ratio 9 NRG Serum or plasma creatinine measurement with calculation of estimated glomerular filtration rate > NRG Serum or plasma glucose measurement (mass/volume) 104 mg/dL 70-105 Serum or plasma calcium measurement (mass/volume) 9.7 mg/dL 8.5-10.1 Serum or plasma total bilirubin measurement (mass/volume) 0.5 mg/dL 0.1-1.0 Serum or plasma alkaline phosphatase measurement (enzymatic activity/volume) 69 U/L 40-136 Serum or plasma aspartate aminotransferase measurement (enzymatic activity/ volume) 31 U/L 5-34 Serum or plasma alanine aminotransferase measurement (enzymatic activity/volume ) 38 U/L 0-55 Serum or plasma protein measurement (mass/volume) 7.1 g/dL 6.4-8.2 Serum or plasma albumin measurement (mass/volume) 4.4 g/dL 3.2-4.5 Magnesium - 03/23/17 18:23 Magnesium 2.0 mg/dL 1.8-2.4 Serum or plasma troponin i.cardiac measurement (mass/volume) - 03/23/17 18:23 Serum or plasma troponin i.cardiac measurement (mass/volume) < ng/ mL <0.30 Serum or plasma amylase measurement (enzymatic activity/volume) - 03/23/17 18: 23 Serum or plasma amylase measurement (enzymatic activity/volume) 60 U /L 25-125 Serum or plasma lithium measurement (moles/volume) - 03/23/17 18:23 BNP level 41.7 pg/mL <100.0 Lipase - 03/23/17 18:23 Lipase 27 U/L 8-78 Serum or plasma thyrotropin measurement by detection limit <=0.05 miu/l (units/ volume) - 03/23/17 18:23 Serum or plasma thyrotropin measurement by detection limit <=0.05 miu/l (units/ volume) 1.09 u[iU]/mL 0.35-4.94 Complete blood count (CBC) with automated white blood cell (WBC) differential - 05/12/17 15:19 Blood leukocytes automated count (number/volume) 7.6 10*3/uL 4.3-11.0 Blood erythrocytes automated count (number/volume) 4.82 10*6/uL 4.35-5.85 Venous blood hemoglobin measurement (mass/volume) 14.9 g/dL 11.5-16.0 Blood hematocrit (volume fraction) 44 % 35-52 Automated erythrocyte mean corpuscular volume 91 [foz_us] 80-99 Automated erythrocyte mean corpuscular hemoglobin (mass per erythrocyte) 31 pg 25-34 Automated erythrocyte mean corpuscular hemoglobin concentration measurement ( mass/volume) 34 g/dL 32-36 Automated erythrocyte distribution width ratio 12.6 % 10.0-14.5 Automated blood platelet count (count/volume) 233 10*3/uL 130-400 Automated blood platelet mean volume measurement 10.2 [foz_us] 7.4-10.4 Automated blood neutrophils/100 leukocytes 45 % 42-75 Automated blood lymphocytes/100 leukocytes 41 % 12-44 Blood monocytes/100 leukocytes 13 % 0-12 Automated blood eosinophils/100 leukocytes 1 % 0-10 Automated blood basophils/100 leukocytes 1 % 0-10 Blood neutrophils automated count (number/volume) 3.4 10*3 1.8-7.8 Blood lymphocytes automated count (number/volume) 3.1 10*3 1.0-4.0 Blood monocytes automated count (number/volume) 1.0 10*3 0.0-1.0 Automated eosinophil count 0.1 10*3/uL 0.0-0.3 Automated blood basophil count (count/volume) 0.0 10*3/uL 0.0-0.1 Erythrocyte sedimentation rate by westergren method - 05/12/17 15:19 Erythrocyte sedimentation rate by westergren method 3 mm 0-30 Complete urinalysis with reflex to culture - 05/12/17 15:19 Urine color determination YELLOW NRG Urine clarity determination SLIGHTLY CLOUDY NRG Urine pH measurement by test strip 7 5-9 Specific gravity of urine by test strip 1.010 1.016- 1.022 Urine protein assay by test strip, semi-quantitative NEGATIVE NEGATIVE Urine glucose detection by automated test strip NEGATIVE NEGATIVE Erythrocytes detection in urine sediment by light microscopy NEGATIVE NEGATIVE Urine ketones detection by automated test strip NEGATIVE NEGATIVE Urine nitrite detection by test strip NEGATIVE NEGATIVE Urine total bilirubin detection by test strip NEGATIVE NEGATIVE Urine urobilinogen measurement by automated test strip (mass/volume) NORMAL NORMAL Urine leukocyte esterase detection by dipstick NEGATIVE NEGATIVE Automated urine sediment erythrocyte count by microscopy (number/high power field) NONE NRG Automated urine sediment leukocyte count by microscopy (number/high power field ) [HPF] NRG Bacteria detection in urine sediment by light microscopy TRACE NRG Squamous epithelial cells detection in urine sediment by light microscopy 2-5 NRG Crystals detection in urine sediment by light microscopy NONE NRG Casts detection in urine sediment by light microscopy NONE NRG Mucus detection in urine sediment by light microscopy NEGATIVE NRG Complete urinalysis with reflex to culture NO NRG Complete blood count (CBC) with automated white blood cell (WBC) differential - 11/16/17 11:47 Blood leukocytes automated count (number/volume) 6.7 10*3/uL 4.3-11.0 Blood erythrocytes automated count (number/volume) 5.00 10*6/uL 4.35-5.85 Venous blood hemoglobin measurement (mass/volume) 15.8 g/dL 11.5-16.0 Blood hematocrit (volume fraction) 46 % 35-52 Automated erythrocyte mean corpuscular volume 92 [foz_us] 80-99 Automated erythrocyte mean corpuscular hemoglobin (mass per erythrocyte) 32 pg 25-34 Automated erythrocyte mean corpuscular hemoglobin concentration measurement ( mass/volume) 34 g/dL 32-36 Automated erythrocyte distribution width ratio 12.6 % 10.0-14.5 Automated blood platelet count (count/volume) 230 10*3/uL 130-400 Automated blood platelet mean volume measurement 10.4 [foz_us] 7.4-10.4 Automated blood neutrophils/100 leukocytes 44 % 42-75 Automated blood lymphocytes/100 leukocytes 43 % 12-44 Blood monocytes/100 leukocytes 11 % 0-12 Automated blood eosinophils/100 leukocytes 2 % 0-10 Automated blood basophils/100 leukocytes 0 % 0-10 Blood neutrophils automated count (number/volume) 2.9 10*3 1.8-7.8 Blood lymphocytes automated count (number/volume) 2.9 10*3 1.0-4.0 Blood monocytes automated count (number/volume) 0.7 10*3 0.0-1.0 Automated eosinophil count 0.2 10*3/uL 0.0-0.3 Automated blood basophil count (count/volume) 0.0 10*3/uL 0.0-0.1 Comprehensive metabolic panel - 11/16/17 11:47 Serum or plasma sodium measurement (moles/volume) 141 mmol/L 135-145 Serum or plasma potassium measurement (moles/volume) 4.5 mmol/L 3.6-5.0 Serum or plasma chloride measurement (moles/volume) 106 mmol/L 98-107 Carbon dioxide 25 mmol/L 21-32 Serum or plasma anion gap determination (moles/volume) 10 mmol/L 5-14 Serum or plasma urea nitrogen measurement (mass/volume) 11 mg/dL 7-18 Serum or plasma creatinine measurement (mass/volume) 0.84 mg/dL 0.60-1.30 Serum or plasma urea nitrogen/creatinine mass ratio 13 NRG Serum or plasma creatinine measurement with calculation of estimated glomerular filtration rate > NRG Serum or plasma glucose measurement (mass/volume) 97 mg/dL 70-105 Serum or plasma calcium measurement (mass/volume) 9.9 mg/dL 8.5-10.1 Serum or plasma total bilirubin measurement (mass/volume) 0.8 mg/dL 0.1-1.0 Serum or plasma alkaline phosphatase measurement (enzymatic activity/volume) 75 U/L 40-136 Serum or plasma aspartate aminotransferase measurement (enzymatic activity/ volume) 31 U/L 5-34 Serum or plasma alanine aminotransferase measurement (enzymatic activity/volume ) 33 U/L 0-55 Serum or plasma protein measurement (mass/volume) 7.1 g/dL 6.4-8.2 Serum or plasma albumin measurement (mass/volume) 4.2 g/dL 3.2-4.5 THYROID STIMULATING HORMONE - 11/16/17 11:47 THYROID STIMULATING HORMONE 1.34 u[iU]/mL 0.35-4.94 Serum or plasma thyroxine (T4) free measurement (mass/volume) - 11/16/17 11:47 Serum or plasma thyroxine (T4) free measurement (mass/volume) 1.23 ng/dL 0.70-1.48 Serum or plasma estradiol (E2) measurement (mass/volume) - 11/16/17 11:47 Serum or plasma estradiol (E2) measurement (mass/volume) 21 pg/mL NRG Encounters ACCT No. Visit Date/Time Discharge Status Pt. Type Provider Facility Loc./Unit Complaint [id number] 11/16/2017 11:36:00 11/16/2017 23:59:59 CLS Outpatient MANUELNDER DO S [facility] LAB HOT FLASHES,CHILLS [id number] 07/20/2017 09:26:00 07/20/2017 23:59:59 CLS Outpatient MAITE LEONARD PHARMACIST IN CHARGE [facility] RAD Z12.31 [id number] 05/15/2017 13:59:00 05/15/2017 15:36:00 DIS Emergency DEVIN CONNELLY, THIEN Burris [facility] ER RIGHT LEG PAIN [id number] 05/12/2017 15:06:00 05/12/2017 23:59:59 CLS Outpatient YING DO S [facility] LAB R60.9,M54.5 [id number] 03/23/2017 17:46:00 03/23/2017 20:23:00 DIS Emergency JACLYN DOMANOLO K [facility] ER SWELLING IN STOMACH AND BOTH LEGS [id number] 12/08/2016 15:29:00 12/08/2016 19:20:00 DIS Emergency JACLYN DOMANOLO K [facility] ER WEAKNESS [id number] 07/07/2016 10:32:00 07/07/2016 23:59:59 CLS Outpatient BILLYER DO S [facility] LAB HYPERLIPIDEMIA [id number] 05/23/2016 21:51:00 05/23/2016 23:32:00 DIS Emergency JAVIER CONNELLY, STEPHAN Mills [facility] ER SWOLLEN TONGUE/SORE THROAT [id number] 05/05/2016 10:31:00 05/05/2016 23:59:59 CLS Outpatient MANUELNDER DO S [facility] LAB Z00.00,E03.8,R73.9 [id number] 02/25/2016 10:51:00 02/25/2016 23:59:59 CLS Outpatient MANUELNDER DO S [facility] RAD FOLLOW UP KUB FOR PAIN,CONTACT W/HAZARDOUS SUB [id number] 02/19/2016 15:29:00 02/19/2016 23:59:59 CLS Outpatient MUNIRA TABOR FLATCAR WHACKER [facility] RAD GENERALIZED ABDOMINAL PAIN [id number] 10/29/2015 09:16:00 10/29/2015 23:59:59 CLS Outpatient MAITE LEONARD PHARMACIST IN CHARGE [facility] RAD ROUTINE MAMMOGRAM SCREENING [id number] 10/01/2015 16:52:00 10/01/2015 23:59:59 CLS Outpatient PRICEDENNISEVELINA CROFT PHARMACIST IN CHARGE [facility] RAD RT HIP AND UPPER LEG PAIN [id number] 08/27/2015 10:50:00 08/27/2015 23:59:59 CLS Outpatient JACQUELINE HE DO [facility] LAB HYPOTHYROIDISM [id number] 07/03/2015 00:05:00 07/03/2015 02:14:00 DIS Emergency JACLYN MANOLO WATSON [facility] ER SHAKEY,HANDS FEET NUMB [id number] 02/20/2015 06:07:00 02/20/2015 12:00:00 DIS Outpatient SHAMEKA AGRAWAL DO [facility] CHOLELITHIASIS [id number] 02/13/2015 08:50:00 02/13/2015 23:59:59 CLS Outpatient SHAMEKA AGRAWAL DO [facility] PREOP CHOLELITHIASIS [id number] 01/29/2015 08:03:00 01/29/2015 23:59:59 CLS Outpatient SHAMEKA AGRAWAL DO [facility] RAD RIGHT UPPER QUADRANT PAIN [id number] 12/02/2014 10:30:00 12/02/2014 13:22:00 DIS Outpatient MARIANO JACINTO MD [facility] RECTAL BLEEDING; FAMILY HX COLON CANCER [id number] 11/28/2014 05:54:00 11/28/2014 23:59:59 CLS Outpatient MARIANO JACINTO MD [facility] PREOP RECTAL BLEEDING; FAMILY HX COLON CANCER [id number] 05/17/2013 09:00:00 05/17/2013 23:59:59 CLS Outpatient JACQUELINE HE DO [facility] RAD SCREENING [id number] 05/16/2013 09:45:00 05/16/2013 23:59:59 CLS Outpatient JACQUELINE HE DO [facility] RAD LOW BACK PAIN, ROUTINE EXAM [id number] 01/07/2015 13:35:00 Document Registration [id number] 01/02/2015 08:46:00 Document Registration [id number] 11/27/2014 10:16:00 Document Registration [id number] 12/20/2012 10:19:00 Document Registration [id number] 12/08/2012 11:10:00 Document Registration [id number] 11/29/2012 12:53:00 Document Registration [id number] 03/09/2012 16:35:00 Document Registration
[2017-11-22] MEDS ORDERED: KETOROLAC 30 MG/ML VIAL IM ONE (08:30)
[2017-11-22] MEDS ORDERED: DEXAMETHASONE 10 MG/ML (DECADRON) 1 ML VIAL IM ONE (08:30)
--- NOTE | 2017-11-22 08:33 | ED Fall/Injury ---
General Chief Complaint: Back Problems Stated Complaint: FALL-BACK INJ Nursing Triage Note: ARRIVED VIA WC TO ROOM 06. STATES SHE FELL GOING DOWN 2-3 STARIS THIS AM CAUSING BILAT LOW BACK PAIN AND LEFT ANKLE PAIN. Source: patient, spouse Exam Limitations: no limitations History of Present Illness Date Seen by Provider: Nov 22, 2017 Time Seen by Provider: 08:24 Initial Comments Patient presents to ER by private conveyance with a chief complaint that just prior to arrival about an hour ago she fell walking down some back steps and landed against her left side. She felt some popping sensation and pain in her low back. She has a history of chronic low back pain and arthritis for which she is on meloxicam as needed. She's not had any surgeries on her back. She also had some pain in her left ankle and has minor swelling. She's not having any fever, cough, chest pain, nausea, vomiting. She denies loss of consciousness or striking of her head. She is not on blood thinners. Patient states that her estrogen levels are low and she is concerned she might have osteopenia. Allergies and Home Medications Allergies Coded Allergies: sulfamethoxazole (Unverified Allergy, Mild, 05/25/09) trimethoprim (Unverified Allergy, Mild, 05/25/09) Sulfa (Sulfonamide Antibiotics) (Unverified Allergy, Unknown, 12/08/16) Home Medications Cholecalciferol 1,000 Unit Tablet, 2,000 UNITS PO HS, (Reported) Levothyroxine Sodium 50 Mcg Tablet, 50 MCG PO DAILY, (Reported) Pantoprazole Sod 40 Mg Tab, 40 MG PO BID, (Reported) Constitutional: No chills, No diaphoresis Eyes: Denies Blindness, Denies Drainage Ears, Nose, Mouth, Throat: denies ear pain, denies ear discharge Respiratory: No cough, No phlegm Cardiovascular: No chest pain, No Hx of Intervention Past Exiyxga-Ztvskw-Aigctd Hx Patient Social History Alcohol Use: Denies Use Recreational Drug Use: No Smoking Status: Current Everyday Smoker Type Used: Cigarettes (0.5 ppd) 2nd Hand Smoke Exposure: Yes Recent Foreign Travel: No Contact w/Someone Who Travel: No Recent Infectious Disease Expo: No Recent Hopitalizations: No Immunizations Up To Date Tetanus Booster (TDap): Unknown Seasonal Allergies Seasonal Allergies: Yes Surgeries History of Surgeries: Yes (OPEN RSO) Surgeries: Appendectomy, Gallbladder, Oophorectomy, Tubal Ligation Respiratory History of Respiratory Disorde: No Cardiovascular History of Cardiac Disorders: No Neurological History of Neurological Disord: No Reproductive System Hx Reproductive Disorders: Yes (UTERINE FIBROIDS, FIBROCYSTIC BREAST DISEASE) Female 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 Genitourinary History of Genitourinary Disor: No Gastrointestinal History of Gastrointestinal Di: Yes Gastrointestinal Disorders: Gastroesophageal Reflux, Chronic Constipation, Diverticulosis, Polyps, Hiatal Hernia, Gall Bladder Disease Musculoskeletal History of Musculoskeletal Dis: Yes Musculoskeletal Disorders: Degenerate Disk Disease, Arthritis, Chronic Back Pain Endocrine History of Endocrine Disorders: Yes Endocrine Disorders: Hypothyroidsim HEENT History of HEENT Disorders: No Hearing Impairment: Denies Cancer History of Cancer: No Psychosocial History of Psychiatric Problem: No Integumentary History of Skin or Integumenta: No Blood Transfusions History of Blood Disorders: No Adverse Reaction to a Blood Tr: No Physical Exam Vital Signs Vital Sign - Last 12Hours 11/22/17 08:24 Temp 98.0 Pulse 90 Resp 18 B/P (MAP) 154/85 (108) Pulse Ox 96 Capillary Refill : Less Than 3 Seconds General Appearance: WD/WN, mild distress HEENT: PERRL/EOMI, pharynx normal Neck: non-tender, full range of motion, supple, normal inspection Cardiovascular: normal peripheral pulses, regular rate, rhythm Respiratory: chest non-tender, lungs clear, normal breath sounds, no respiratory distress, no accessory muscle use Peripheral Pulses: 2+ Dorsalis Pedis (R), 2+ Left Dors-Pedis (L) Extremities: normal range of motion, normal inspection, no pedal edema (no ecchymosis but trace left ankle edema and tenderness on the lateral malleolus), normal capillary refill Neurologic/Psychiatric: no motor/sensory deficits, alert, normal mood/affect, oriented x 3 Skin: normal color, warm/dry [place] Coma Score Best Eye Response: (4) Open Spontaneously Best Verbal Response: (5) Oriented Best Motor Response: (6) Obeys Commands [place] Total: 15 Progress/Results/Core Measures Results/Orders Lab Results Laboratory Tests Test 11/22/17 08:45 Range/Units Urine Color YELLOW Urine Clarity CLEAR Urine pH 8 5-9 Urine Specific [place] 1.015 L 1.016-1.022 Urine Protein NEGATIVE NEGATIVE Urine Glucose (UA) NEGATIVE NEGATIVE Urine Ketones NEGATIVE NEGATIVE Urine Nitrite NEGATIVE NEGATIVE Urine Bilirubin NEGATIVE NEGATIVE Urine Urobilinogen NORMAL NORMAL MG/DL Urine Leukocyte Esterase NEGATIVE NEGATIVE Urine RBC (Auto) NEGATIVE NEGATIVE Urine RBC 0-2 /HPF Urine WBC NONE /HPF Urine Squamous Epithelial Cells 2-5 /HPF Urine Crystals NONE /LPF Urine Bacteria NEGATIVE /HPF Urine Casts NONE /LPF Urine Mucus NEGATIVE /LPF Urine Culture Indicated NO My Orders Orders - DIXIE BYRD Ketorolac Injection (Toradol Injection) (11/22/17 08:30) Dexamethasone Injection (Decadron Inject (11/22/17 08:30) Thoracic Spine, 2 Views Only (11/22/17 08:27) Lumbar Spine - 2-3 Views (11/22/17 08:27) Ua Culture If Indicated (11/22/17 08:34) Medications Given in ED Current Medications Medications Dose Ordered Sig/Narayan Route Start Time Stop Time Status Last Admin Dose Admin Dexamethasone Sodium Phosphate 10 mg ONCE ONCE IM 11/22/17 08:30 11/22/17 08:31 DC 11/22/17 08:34 10 MG Ketorolac Tromethamine 30 mg ONCE ONCE IM 11/22/17 08:30 11/22/17 08:31 DC 11/22/17 08:34 30 MG Vital Signs/I&O Vital Sign - Last 12Hours 11/22/17 08:24 Temp 98.0 Pulse 90 Resp 18 B/P (MAP) 154/85 (108) Pulse Ox 96 Blood Pressure Mean: 108 Progress Note #1: Time: 08:32 Progress Note We will get a urinalysis and x-ray her thoracic and lumbar spine. By [place] ankle rules she has not needing an x-ray of her ankle. We'll give her some steroids and pain medicine of her choice. Progress Note #2: Time: 09:41 Progress Note Patient's pain is improved son and she's not having any red flags. We discussed her x-ray findings and expected course as well as return precautions. Weren't a trial outpatient conservative therapy. She has muscle relaxants home. Diagnostic Imaging Diagonstic Imaging: Xray Plain Films/CT/US/NM/MRI: other (T/L Spine) Comments VIA [facility], [facility]. [place], [place] NAME: NOEL PLEITEZ V MED REC#: [id number] PT STATUS: REG ER : 1960 PHYSICIAN: DIXIE BYRD MD ADMIT DATE: 11/22/17/ER Draft Date of Exam:11/22/17 LUMBAR SPINE - 2-3 VIEWS EXAM: LUMBAR SPINE - 2-3 VIEWS INDICATION: Fall. Back pain. COMPARISON: Lumbar spine radiographs 05/16/2013. FINDINGS: There are 5 lumbar type vertebral bodies. Normal alignment. Moderate to advanced degenerative endplate changes most marked at L5-S1 and are similar to the prior exam. There has been mild interval height loss involving the superior endplate of L2 with sclerosis suggesting this is chronic. No fractures. Advanced lower lumbar facet arthropathy at L4-S1. Calcified aorta. Phleboliths. The visualized sacrum and SI joints are unremarkable. IMPRESSION: 1. Mild interval height loss involving the superior endplate of L2 appears chronic but is age-indeterminate. This could be better evaluated with MRI. 2. Moderate to advanced degenerative endplate changes and lower lumbar facet arthropathy have progressed since the prior exam. Dictated on workstation # [id number] Dict: 11/22/17909 Trans: 11/22/1716 [facility] [id number] Interpreted by: FLORA GREEN MD Electronically signed by: [place]IA [place], [place] NAME: NOEL PLEITEZ V [facility] REC#: [id number] PT STATUS: REG ER : 1960 PHYSICIAN: DIXIE BYRD MD ADMIT DATE: 11/22/17/ER Draft Date of Exam:11/22/17 THORACIC SPINE, 2 VIEWS ONLY EXAM: THORACIC SPINE, 2 VIEWS ONLY. INDICATION: Fall. Back pain. COMPARISON: None. FINDINGS: Mild degenerative endplate changes. Vertebral body heights preserved. Mild right apex thoracic curvature. No fractures. Cholecystectomy clips. IMPRESSION: Mild spondylotic changes in the thoracic spine. No acute radiographic findings. Dictated on workstation # [id number] Dict: 11/22/17912 Trans: 11/22/1715 [id number] Interpreted by: FLORA GREEN MD Electronically signed by: Reviewed: Reviewed by Me Departure Impression Impression: Primary Impression: Fall (on) (from) other stairs and steps, initial encounter Disposition: 01 HOME, SELF-CARE Condition: Stable Departure-Patient Inst. Decision time for Depature: 09:42 Referrals: JACQUELINE HE DO (PCP/Family) Primary Care Physician Patient Instructions: Low Back Pain (DC) Add. Discharge Instructions: Drink plenty of fluids and use your meloxicam daily as prescribed. Use your Flexeril as prescribed. Take Tylenol 1000 mg every 8 hours as needed for pain where your back brace and use creams such as icy hot as well as ice her back for 20 minutes every 4 hours for the first 2 days. After that heating pads will be very helpful. Try and stay mobile and if you don't feel that you're improving fast enough you can follow up with your primary care physician to think about things like increasing the dose of steroids or a course of physical therapy. Is also not wrong to go see a chiropractor. Return to care immediately if you begin to experience loss of continence of your bowels or bladder, legs collapsing underneath you, numbness. All discharge instructions reviewed with patient and/or family. Voiced understanding. Scripts Hydrocodone Bit/Acetaminophen (Hydrocodone/Acetaminophen 5/325mg Tablet) 1 Tab Tab 1-2 EACH PO Q6H Y for BREAKTHROUGH PAIN, #15 TAB 0 Refills Prov: DIXIE BYRD 11/22/17 Work/School Note: Work Release Form Date Seen in the Emergency Department: Nov 22, 2017 Return to Work: Nov 23, 2017 Restrictions: No Restrictions Copy Copies To 1: JACQUELINE HE TITUS J Nov 22, 2017 08:33
[2017-11-22 08:51] LABS: BILIRUBIN,URINE NEGATIVE (NEGATIVE); CLARITY,URINE CLEAR; COLOR,URINE YELLOW; GLUCOSE, URINE (UA) NEGATIVE (NEGATIVE); KETONES,URINE NEGATIVE (NEGATIVE); LEUKOCYTE ESTERASE ,URINE NEGATIVE (NEGATIVE); NITRITE,URINE NEGATIVE (NEGATIVE); PH,URINE 8 (5-9); PROTEIN,URINE NEGATIVE (NEGATIVE); UROBILINOGEN,URINE NORMAL (NORMAL)
[2017-11-22 09:02] LABS: BACTERIA,URINE NEGATIVE /HPF; RBC,URINE 0-2 /HPF
--- NOTE | 2017-11-22 09:16 | Diagnostic Imaging Report ---
EXAM: THORACIC SPINE, 2 VIEWS ONLY. INDICATION: Fall. Back pain. COMPARISON: None. FINDINGS: Mild degenerative endplate changes. Vertebral body heights preserved. Mild right apex thoracic curvature. No fractures. Cholecystectomy clips. IMPRESSION: Mild spondylotic changes in the thoracic spine. No acute radiographic findings. Dictated by: Dictated on workstation # [id number]
--- NOTE | 2017-11-22 09:16 | Diagnostic Imaging Report ---
EXAM: LUMBAR SPINE - 2-3 VIEWS INDICATION: Fall. Back pain. COMPARISON: Lumbar spine radiographs 05/16/2013. FINDINGS: There are 5 lumbar type vertebral bodies. Normal alignment. Moderate to advanced degenerative endplate changes most marked at L5-S1 and are similar to the prior exam. There has been mild interval height loss involving the superior endplate of L2 with sclerosis suggesting this is chronic. No fractures. Advanced lower lumbar facet arthropathy at L4-S1. Calcified aorta. Phleboliths. The visualized sacrum and SI joints are unremarkable. IMPRESSION: 1. Mild interval height loss involving the superior endplate of L2 appears chronic but is age-indeterminate. This could be better evaluated with MRI. 2. Moderate to advanced degenerative endplate changes and lower lumbar facet arthropathy have progressed since the prior exam. Dictated by: Dictated on workstation # [id number]
[2017-11-22] MEDS ORDERED: ACHD5005 PO (09:44)
[2017-11-22 09:49] VITALS: BP 138/77
== END 2017-11-22 09:49 | disposition home or self-care (01) ==
LOC: EDUNIT# 08:11 → ER 08:13
DX: M54.5 Low back pain (principal); R40.2142 Coma scale, eyes open, spontaneous, at arrival to emergency department; R40.2252 Coma scale, best verbal response, oriented, at arrival to emergency department; R40.2362 Coma scale, best motor response, obeys commands, at arrival to emergency department; K21.9 Gastro-esophageal reflux disease without esophagitis; E03.9 Hypothyroidism, unspecified; F17.210 Nicotine dependence, cigarettes, uncomplicated; Z88.2 Allergy status to sulfonamides; Z87.19 Personal history of other diseases of the digestive system; Z90.49 Acquired absence of other specified parts of digestive tract; Z98.51 Tubal ligation status; Z87.448 Personal history of other diseases of urinary system; Z86.010 Personal history of colon polyps; W10.9XXA Fall (on) (from) unspecified stairs and steps, initial encounter
CPT/HCPCS: 72070; 72100; 81000; 96372; 99284

== ENCOUNTER → 2017-12-14 | Outpatient (CLI) | payer SELFPAY ==
[~2017-12-14] MED LIST changes: +ACHD5005 PO
--- NOTE | 2017-12-14 14:09 | Diagnostic Imaging Report ---
INDICATION: Uterine fibroid and postmenopausal. TECHNIQUE: Transabdominal and transvaginal pelvic sonography was performed. FINDINGS: The uterus measures 7.8 x 4.9 x 3.7 cm. No myometrial mass is identified. The endometrium is thickened at 12 mm. Minimal cystic change in the fundal endometrium is noted. Adnexal evaluation is unremarkable. The ovaries are not visualized. No adnexal mass or free fluid is seen. IMPRESSION: Abnormally thickened endometrium with mild cystic changes. No other significant abnormality is seen. Dictated by: Dictated on workstation # [id number]
== END ==
LOC: RAD 11:59
PROVIDERS: ATTEND Obstetrics & Gynecology
DX: D25.9 Leiomyoma of uterus, unspecified (principal); R93.8 Abnormal findings on diagnostic imaging of other specified body structures; Z78.0 Asymptomatic menopausal state
CPT/HCPCS: 76830; 76856

== ENCOUNTER 2018-07-09 15:50 | Emergency (ER) | payer SELFPAY ==
[~2018-07-09] VITALS: Ht 157.5 cm; Wt 63.5 kg
[~2018-07-09 15:50] MED LIST changes: +HYDR-4227 PO; -HYDR-756 PO
[2018-07-09 17:07] LABS: BASOPHILS % (AUTO) 0 % (0-10); EOSINOPHILS # (AUTO) 0.1 10^3/uL (0.0-0.3); EOSINOPHILS % (AUTO) 1 % (0-10); HEMATOCRIT 44 % (35-52); HEMOGLOBIN 15.4 G/DL (11.5-16.0); LYMPHOCYTES # (AUTO) 3.4 X 10^3 (1.0-4.0); LYMPHOCYTES % (AUTO) 39 % (12-44); MEAN CORPUSCULAR HEMOGLOBIN 32 PG (25-34); MEAN CORPUSCULAR HGB CONC 35 G/DL (32-36); MEAN CORPUSCULAR VOLUME 92 FL (80-99); MEAN PLATELET VOLUME 10.3 FL (7.4-10.4); MONOCYTES # (AUTO) 0.9 X 10^3 (0.0-1.0); MONOCYTES % (AUTO) 10 % (0-12); NEUTROPHILS # (AUTO) 4.5 X 10^3 (1.8-7.8); NEUTROPHILS % (AUTO) 51 % (42-75); PLATELET COUNT 235 10^3/uL (130-400); RED BLOOD COUNT 4.82 10^6/uL (4.35-5.85); RED CELL DISTRIBUTION WIDTH 12.7 % (10.0-14.5); WHITE BLOOD COUNT 8.9 10^3/uL (4.3-11.0)
[2018-07-09 17:36] LABS: ALANINE AMINOTRANSFERASE 27 U/L (0-55); ALBUMIN 4.4 GM/DL (3.2-4.5); ALKALINE PHOSPHATASE 66 U/L (40-136); BILIRUBIN,TOTAL 0.4 MG/DL (0.1-1.0); BUN/CREATININE RATIO 14; CARBON DIOXIDE 25 MMOL/L (21-32); CHLORIDE 103 MMOL/L (98-107); CREATININE SERUM 0.84 MG/DL (0.60-1.30); GFR ESTIMATED > 60; GLUCOSE 82 MG/DL (70-105); POTASSIUM 4.5 MMOL/L (3.6-5.0); SODIUM 138 MMOL/L (135-145); TOTAL PROTEIN 7.2 GM/DL (6.4-8.2)
--- NOTE | 2018-07-09 18:07 | ED General ---
General Chief Complaint: General Problems/Pain Stated Complaint: BURING IN FEET/LEG/HANDS Nursing Triage Note: Pt c/o numbness, burning tingling in feet, face, legs that started . Nursing Sepsis Screen: No Definite Risk Source of Information: Patient Exam Limitations: No Limitations History of Present Illness Date Seen by Provider: Jul 09, 2018 Time Seen by Provider: 16:33 Initial Comments Patient is a 58-year-old female who presents to the emergency room with complaints of numbness, tingling, burning to her face, hands, legs, feet bilaterally since . She was seen at Dr. Watkins's office and was put on gabapentin and a muscle relaxer and reports that this does help. Requesting lab work today. Timing/Duration: 3-4 Days Severity: Mild Associated Systoms: Denies Symptoms Allergies and Home Medications Allergies Coded Allergies: sulfamethoxazole (Unverified Allergy, Mild, 05/25/09) trimethoprim (Unverified Allergy, Mild, 05/25/09) Sulfa (Sulfonamide Antibiotics) (Unverified Allergy, Unknown, 12/08/16) Home Medications Cholecalciferol 1,000 Unit Tablet, 2,000 UNITS PO HS, (Reported) Hydrocodone Bit/Acetaminophen 1 Tab Tab, 1-2 EACH PO Q6H PRN for BREAKTHROUGH PAIN Prescribed by: DIXIE BYRD on 11/22/17 0944 Levothyroxine Sodium 50 Mcg Tablet, 50 MCG PO DAILY, (Reported) Pantoprazole Sod 40 Mg Tab, 40 MG PO BID, (Reported) Patient Home Medication List Home Medication List Reviewed: Yes Review of Systems Review of Systems Constitutional: see HPI; No chills, No fever Musculoskeletal: see HPI, muscle twitching Skin: see HPI Psychiatric/Neurological: See HPI, Numbness, Tingling (all over ) All Other Systems Reviewed Negative Unless Noted: Yes Past Kyeqbnt-Umalen-Lozehe Hx Past Med/Social Hx: Reviewed Nursing Past Med/Soc Hx Patient Social History Alcohol Use: Denies Use Recreational Drug Use: No Type Used: Cigarettes 2nd Hand Smoke Exposure: Yes Recent Foreign Travel: No Contact w/Someone Who Travel: No Recent Infectious Disease Expo: No Recent Hopitalizations: No Physical Abuse: No Sexual Abuse: No Immunizations Up To Date Tetanus Booster (TDap): Unknown Seasonal Allergies Seasonal Allergies: Yes Past Medical History Surgeries: Yes (OPEN RSO) Appendectomy, Gallbladder, Oophorectomy, Tubal Ligation Respiratory: No Cardiac: No Neurological: No Reproductive Disorders: Yes (UTERINE FIBROIDS, FIBROCYSTIC BREAST DISEASE) Female 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 Genitourinary: No Gastrointestinal: Yes Gastroesophageal Reflux, Chronic Constipation, Diverticulosis, Polyps, Hiatal Hernia, Gall Bladder Disease Musculoskeletal: Yes Degenerate Disk Disease, Arthritis, Chronic Back Pain Endocrine: Yes Hypothyroidsim HEENT: No Hearing Impairment: Denies Cancer: No Psychosocial: No Integumentary: No Blood Disorders: No Adverse Reaction/Blood Tranf: No Family Medical History Reviewed Nursing Family Hx Physical Exam Vital Signs Vital Signs - First Documented 07/09/18 16:33 Temp 97.3 Pulse 83 Resp 14 B/P (MAP) 139/84 (102) Pulse Ox 98 O2 Delivery Room Air Capillary Refill : Less Than 3 Seconds Height, Weight, BMI Height: 5'2.00" Weight: 140lbs. oz. 63.967762us; 26.52 BMI Method:Stated General Appearance: No Apparent Distress, WD/WN Eyes: Bilateral Eye Normal Inspection, Bilateral Eye PERRL, Bilateral Eye EOMI HEENT: PERRL/EOMI, TMs Normal, Normal ENT Inspection, Pharynx Normal Neck: Full Range of Motion, Normal Inspection, Non Tender, Supple Respiratory: Chest Non Tender, Lungs Clear, Normal Breath Sounds, No Accessory Muscle Use, No Respiratory Distress Cardiovascular: Regular Rate, Rhythm, No Edema, No Gallop, No JVD, No Murmur, Normal Peripheral Pulses Extremity: Normal Capillary Refill, Normal Inspection, Normal Range of Motion, Non Tender, No Calf Tenderness, No Pedal Edema Neurologic/Psychiatric: Alert, Oriented x3, Normal Mood/Affect Skin: Normal Color, Warm/Dry Comments NIH- 0 Progress/Results/Core Measures Suspected Sepsis Recent Fever Within 48 Hours: No Infection Criteria Present: None New/Unexplained Altered Menta: No Sepsis Screen: No Definite Risk SIRS Temperature:97.3 Pulse: 83 Respiratory Rate: 14 Laboratory Tests 07/09/18 16:55: White Blood Count 8.9 Blood Pressure 139 /84 Mean: 102 Laboratory Tests 07/09/18 16:55: Creatinine 0.84, Platelet Count 235, Total Bilirubin 0.4 Results/Orders Lab Results Laboratory Tests Test 9/16/18 16:55 Range/Units White Blood Count 8.9 4.3-11.0 10^3/uL Red Blood Count 4.82 4.35-5.85 10^6/uL Hemoglobin 15.4 11.5-16.0 G/DL Hematocrit 44 35-52 % Mean Corpuscular Volume 92 80-99 FL Mean Corpuscular Hemoglobin 32 25-34 PG Mean Corpuscular Hemoglobin Concent 35 32-36 G/DL Red Cell Distribution Width 12.7 10.0-14.5 % Platelet Count 235 130-400 10^3/uL Mean Platelet Volume 10.3 7.4-10.4 FL Neutrophils (%) (Auto) 51 42-75 % Lymphocytes (%) (Auto) 39 12-44 % Monocytes (%) (Auto) 10 0-12 % Eosinophils (%) (Auto) 1 0-10 % Basophils (%) (Auto) 0 0-10 % Neutrophils # (Auto) 4.5 1.8-7.8 X 10^3 Lymphocytes # (Auto) 3.4 1.0-4.0 X 10^3 Monocytes # (Auto) 0.9 0.0-1.0 X 10^3 Eosinophils # (Auto) 0.1 0.0-0.3 10^3/uL Basophils # (Auto) 0.0 0.0-0.1 10^3/uL Sodium Level 138 135-145 MMOL/L Potassium Level 4.5 3.6-5.0 MMOL/L Chloride Level 103 98-107 MMOL/L Carbon Dioxide Level 25 21-32 MMOL/L Anion Gap 10 5-14 MMOL/L Blood Urea Nitrogen 12 7-18 MG/DL Creatinine 0.84 0.60-1.30 MG/DL Estimat Glomerular Filtration Rate > 60 BUN/Creatinine Ratio 14 Glucose Level 82 70-105 MG/DL Calcium Level 10.0 8.5-10.1 MG/DL Corrected Calcium 9.7 8.5-10.1 MG/DL Total Bilirubin 0.4 0.1-1.0 MG/DL Aspartate Amino Transf (AST/SGOT) 26 5-34 U/L Alanine Aminotransferase (ALT/SGPT) 27 0-55 U/L Alkaline Phosphatase 66 40-136 U/L Total Protein 7.2 6.4-8.2 GM/DL Albumin 4.4 3.2-4.5 GM/DL My Orders Orders - BENNY JOHNSON Cbc With Automated Diff (07/09/18 16:46) Comprehensive Metabolic Panel (07/09/18 16:46) Vital Signs/I&O Capillary Refill : Less Than 3 Seconds Blood Pressure Mean: 102 Progress Note : Time: 18:00 Progress Note I have seen and evaluated the patient. I have informed her of normal laboratory studies. I have instructed to continue medications as previously prescribed. She agrees with plans for discharge, plans for follow up, return precautions were given. Departure Impression Primary Impression: Tingling sensation in face Additional Impression: Tingling in extremities Disposition: HOME, SELF-CARE Condition: Stable/Unchanged Departure-Patient Inst. Decision time for Depature: 18:05 Referrals: JACQUELINE WATKINS DO (PCP/Family) Primary Care Physician Patient Instructions: Peripheral Neuropathy (DC) Add. Discharge Instructions: Continue your home medications as previously prescribed. Follow-up with Dr. WATKINS within 1 week for recheck. Return back to the emergency room for any worsening symptoms or concerns as needed. All discharge instructions reviewed with patient and/or family. Voiced understanding. BENNY JOHNSON Jul 09, 2018 18:07
[2018-07-09 18:23] VITALS: BP 146/85
== END 2018-07-09 18:23 | disposition home or self-care (01) ==
LOC: EDUNIT# 15:50 → ER 15:52
DX: R20.2 Paresthesia of skin (principal); K21.9 Gastro-esophageal reflux disease without esophagitis; E03.9 Hypothyroidism, unspecified; Z87.19 Personal history of other diseases of the digestive system; Z88.2 Allergy status to sulfonamides; Z88.8 Allergy status to other drugs, medicaments and biological substances; Z77.22 Contact with and (suspected) exposure to environmental tobacco smoke (acute) (chronic); Z90.89 Acquired absence of other organs; Z98.51 Tubal ligation status
CPT/HCPCS: 36415; 80053; 85025; 99281

== ENCOUNTER → 2018-09-01 | Outpatient (CLI) | payer OTHER ==
--- NOTE | 2018-09-01 14:37 | Diagnostic Imaging Report ---
INDICATION: Right-sided rib pain. TIME OF EXAM: 02:42 p.m. No displaced rib fracture is seen. No parenchymal contusion, effusion or pneumothorax is identified. IMPRESSION: No acute abnormality is detected. Dictated by: Dictated on workstation # [id number]
--- NOTE | 2018-09-01 14:46 | Diagnostic Imaging Report ---
INDICATION: Right clavicle pain and swelling. TIME OF EXAM: 02:40 p.m. Two views of the right clavicle were obtained. Alignment at the acromioclavicular joint is normal. There are degenerative changes at the acromioclavicular joint. The clavicle is intact. No fractures are seen. IMPRESSION: AC joint degenerative change. No other abnormality is detected. Dictated by: Dictated on workstation # [id number]
== END ==
LOC: RAD 14:01
PROVIDERS: ATTEND Family Medicine
DX: M19.011 Primary osteoarthritis, right shoulder (principal); R07.82 Intercostal pain
CPT/HCPCS: 71100; 73000

== ENCOUNTER → 2018-11-08 | Outpatient (CLI) | payer OTHER ==
[2018-11-08 11:39] LABS: BASOPHILS % (AUTO) 0 % (0-10); EOSINOPHILS # (AUTO) 0.1 10^3/uL (0.0-0.3); EOSINOPHILS % (AUTO) 2 % (0-10); HEMATOCRIT 44 % (35-52); HEMOGLOBIN 14.9 G/DL (11.5-16.0); LYMPHOCYTES # (AUTO) 2.8 X 10^3 (1.0-4.0); LYMPHOCYTES % (AUTO) 47 % (12-44); MEAN CORPUSCULAR HEMOGLOBIN 32 PG (25-34); MEAN CORPUSCULAR HGB CONC 34 G/DL (32-36); MEAN CORPUSCULAR VOLUME 94 FL (80-99); MEAN PLATELET VOLUME 10.1 FL (7.4-10.4); MONOCYTES # (AUTO) 0.7 X 10^3 (0.0-1.0); MONOCYTES % (AUTO) 12 % (0-12); NEUTROPHILS # (AUTO) 2.3 X 10^3 (1.8-7.8); NEUTROPHILS % (AUTO) 40 % (42-75); PLATELET COUNT 217 10^3/uL (130-400); RED BLOOD COUNT 4.69 10^6/uL (4.35-5.85); RED CELL DISTRIBUTION WIDTH 12.7 % (10.0-14.5); WHITE BLOOD COUNT 5.9 10^3/uL (4.3-11.0)
[2018-11-08 11:55] LABS: ALANINE AMINOTRANSFERASE 19 U/L (0-55); ALBUMIN 4.2 GM/DL (3.2-4.5); ALKALINE PHOSPHATASE 60 U/L (40-136); BILIRUBIN,TOTAL 0.6 MG/DL (0.1-1.0); BUN/CREATININE RATIO 10; CALCIUM 9.8 MG/DL (8.5-10.1); CARBON DIOXIDE 25 MMOL/L (21-32); CHLORIDE 107 MMOL/L (98-107); CHOLESTEROL 239 MG/DL (< 200); CREATININE SERUM 0.86 MG/DL (0.60-1.30); GFR ESTIMATED > 60; GLUCOSE 107 MG/DL (70-105); HDL CHOLESTEROL 91 MG/DL (40-60); POTASSIUM 4.5 MMOL/L (3.6-5.0); SODIUM 141 MMOL/L (135-145); TOTAL PROTEIN 6.8 GM/DL (6.4-8.2); TRIGLYCERIDES 88 MG/DL (<150); VLDL CHOLESTEROL 18 MG/DL (5-40)
[2018-11-08 12:18] LABS: FREE T4 (FREE THYROXINE) 1.27 NG/DL (0.70-1.48)
== END ==
LOC: LAB 11:13
PROVIDERS: ATTEND Family Medicine
DX: Z00.00 Encounter for general adult medical examination without abnormal findings (principal); E03.9 Hypothyroidism, unspecified; R73.9 Hyperglycemia, unspecified
CPT/HCPCS: 36415; 80053; 80061; 83036; 84439; 84443; 85025

== ENCOUNTER → 2018-11-29 | Outpatient (CLI) | payer OTHER ==
--- NOTE | 2018-11-29 21:23 | Diagnostic Imaging Report ---
INDICATION: Routine screening. Correlation is made with prior mammogram from 07/20/2017 and 10/29/2015. 2-D and 3-D bilateral screening mammography was performed with CAD. The current study was also evaluated with a Computer Aided Detection (CAD) system. FINDINGS: Scattered fibroglandular densities are identified bilaterally. The parenchymal pattern is stable. No mass or malignant-appearing microcalcifications are seen. The axillae are unremarkable. IMPRESSION: No mammographic features suspicious for malignancy are identified. ACR BI-RADS Category 1: Negative. Result letter will be mailed to the patient. Note: At least 10% of breast cancer is not imaged by mammography. Dictated by: Dictated on workstation # [id number]
== END ==
LOC: RAD 10:53
PROVIDERS: ATTEND Nurse Practitioner
DX: Z12.31 Encounter for screening mammogram for malignant neoplasm of breast (principal)
CPT/HCPCS: 77067

== ENCOUNTER → 2019-03-14 | Outpatient (CLI) | payer SELFPAY ==
--- NOTE | 2019-03-14 15:17 | Diagnostic Imaging Report ---
INDICATION: Headache. Amnesia. TECHNIQUE: Routine non contrast-enhanced axial images were obtained from the skull base to the vertex. Auto Exposure Controls were utilized during the CT exam to meet ALARA standards for radiation dose reduction COMPARISON: 12/08/2016. FINDINGS: The ventricles and cortical sulci are age-appropriate. There is no midline shift or mass-effect. No acute intra-axial hemorrhage is seen. There are no abnormal areas of increased or decreased density to suggest acute hemorrhage or edema. No extra-axial masses or collections are present. The bony calvarium is intact. The visualized paranasal sinuses show scattered mucosal thickening of the ethmoid air cells. The mastoid air cells are clear. IMPRESSION: 1. No acute intracranial abnormality. No CT evidence of mass, acute infarct or intracranial hemorrhage. Dictated by: Dictated on workstation # [id number]
== END ==
LOC: RAD 14:31
PROVIDERS: ATTEND Family Medicine
DX: R51 Headache (principal); R41.3 Other amnesia
CPT/HCPCS: 70450

== ENCOUNTER → 2019-11-07 | Outpatient (CLI) | payer SELFPAY ==
[2019-11-07 11:22] LABS: BILIRUBIN,URINE NEGATIVE (NEGATIVE); CLARITY,URINE CLEAR; COLOR,URINE YELLOW; GLUCOSE, URINE (UA) NEGATIVE (NEGATIVE); KETONES,URINE NEGATIVE (NEGATIVE); LEUKOCYTE ESTERASE ,URINE NEGATIVE (NEGATIVE); NITRITE,URINE NEGATIVE (NEGATIVE); PROTEIN,URINE NEGATIVE (NEGATIVE)
[2019-11-07 11:25] LABS: BASOPHILS % (AUTO) 0 % (0-10); EOSINOPHILS # (AUTO) 0.1 10^3/uL (0.0-0.3); EOSINOPHILS % (AUTO) 1 % (0-10); HEMATOCRIT 47 % (35-52); HEMOGLOBIN 15.4 G/DL (11.5-16.0); LYMPHOCYTES # (AUTO) 2.3 X 10^3 (1.0-4.0); LYMPHOCYTES % (AUTO) 40 % (12-44); MEAN CORPUSCULAR HEMOGLOBIN 30 PG (25-34); MEAN CORPUSCULAR HGB CONC 33 G/DL (32-36); MEAN CORPUSCULAR VOLUME 92 FL (80-99); MEAN PLATELET VOLUME 9.9 FL (7.4-10.4); MONOCYTES # (AUTO) 0.7 X 10^3 (0.0-1.0); MONOCYTES % (AUTO) 13 % (0-12); NEUTROPHILS # (AUTO) 2.6 X 10^3 (1.8-7.8); NEUTROPHILS % (AUTO) 46 % (42-75); PLATELET COUNT 263 10^3/uL (130-400); RED CELL DISTRIBUTION WIDTH 12.9 % (10.0-14.5); WHITE BLOOD COUNT 5.7 10^3/uL (4.3-11.0)
[2019-11-07 11:31] LABS: BACTERIA,URINE TRACE /HPF; RBC,URINE RARE /HPF; WBC,URINE 0-2 /HPF
[2019-11-07 11:55] LABS: ALANINE AMINOTRANSFERASE 22 U/L (0-55); ALBUMIN 4.6 GM/DL (3.2-4.5); ALKALINE PHOSPHATASE 73 U/L (40-136); BILIRUBIN,TOTAL 0.5 MG/DL (0.1-1.0); BUN/CREATININE RATIO 12; CARBON DIOXIDE 27 MMOL/L (21-32); CHLORIDE 104 MMOL/L (98-107); CHOLESTEROL 245 MG/DL (< 200); CREATININE SERUM 0.89 MG/DL (0.60-1.30); GFR ESTIMATED > 60; GLUCOSE 101 MG/DL (70-105); HDL CHOLESTEROL 82 MG/DL (40-60); POTASSIUM 4.4 MMOL/L (3.6-5.0); SODIUM 140 MMOL/L (135-145); TOTAL PROTEIN 7.5 GM/DL (6.4-8.2); TRIGLYCERIDES 78 MG/DL (<150); VLDL CHOLESTEROL 16 MG/DL (5-40)
[2019-11-07 12:17] LABS: FREE T4 (FREE THYROXINE) 1.16 NG/DL (0.70-1.48)
== END ==
LOC: LAB 10:54
PROVIDERS: ATTEND Family Medicine
DX: Z00.00 Encounter for general adult medical examination without abnormal findings (principal); Z13.6 Encounter for screening for cardiovascular disorders; E03.9 Hypothyroidism, unspecified
CPT/HCPCS: 36415; 80053; 80061; 81000; 84439; 84443; 85025

== ENCOUNTER 2019-12-18 14:14 | Emergency (ER) | payer OTHER ==
[~2019-12-18] VITALS: Ht 157 cm; Wt 68.0 kg
[2019-12-18] MEDS ORDERED: PRD20T PO (14:58)
--- NOTE | 2019-12-18 14:58 | ED Cough/URI ---
General Chief Complaint: Cough/Cold/Flu Symptoms Stated Complaint: SINUS CONGESTION Nursing Triage Note: TO TRIAGE WITH COMPLAINTS OF COUGH AND SINUS LIKE SYMTOMS. 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 Sepsis Screen: No Definite Risk Source: patient Exam Limitations: no limitations History of Present Illness Date Seen by Provider: Dec 18, 2019 Time Seen by Provider: 14:56 Initial Comments To ER with nonproductive cough and nasal congestion ringing in ears for 3 days. 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 No fever. Severity/Quality: moderate Associated Symptoms: cough Allergies and Home Medications Allergies Coded Allergies: sulfamethoxazole (Unverified Allergy, Mild, 05/25/09) trimethoprim (Unverified Allergy, Mild, 05/25/09) Sulfa (Sulfonamide Antibiotics) (Unverified Allergy, Unknown, 12/08/16) Home Medications Cholecalciferol 1,000 Unit Tablet, 2,000 UNITS PO HS, (Reported) Hydrocodone Bit/Acetaminophen 1 Tab Tab, 1-2 EACH PO Q6H PRN for BREAKTHROUGH PAIN Prescribed by: DIXIE BYRD on 11/22/17 0944 Levothyroxine Sodium 50 Mcg Tablet, 50 MCG PO DAILY, (Reported) Patient Home Medication List Home Medication List Reviewed: Yes Review of Systems Review of Systems Constitutional: see HPI; No chills, No fever EENTM: nose congestion, throat pain Respiratory: see HPI, cough Cardiovascular: no symptoms reported Genitourinary: no symptoms reported Musculoskeletal: no symptoms reported Skin: no symptoms reported Psychiatric/Neurological: No Symptoms Reported Hematologic/Lymphatic: No Symptoms Reported Past Xpebbgr-Mfhogt-Fctrjc Hx Patient Social History Alcohol Use: Rarely Uses Recreational Drug Use: No Smoking Status: Current Everyday Smoker Type Used: Cigarettes 2nd Hand Smoke Exposure: Yes Recent Foreign Travel: No Contact w/Someone Who Travel: No Recent Infectious Disease Expo: No Recent Hopitalizations: No Immunizations Up To Date Tetanus Booster (TDap): Unknown Seasonal Allergies Seasonal Allergies: Yes Past Medical History Surgeries: Yes (OPEN RSO) Appendectomy, Gallbladder, Oophorectomy, Tubal Ligation Respiratory: No Cardiac: No Neurological: No Reproductive Disorders: Yes (UTERINE FIBROIDS, FIBROCYSTIC BREAST DISEASE) Female Reproductive Disorders: Ovarian Cyst [place] History: Menopausal Genitourinary: No Gastrointestinal: Yes Gastroesophageal Reflux, Chronic Constipation, Diverticulosis, Polyps, Hiatal Hernia, Gall Bladder Disease Musculoskeletal: Yes Degenerate Disk Disease, Arthritis, Chronic Back Pain Endocrine: Yes Hypothyroidsim HEENT: No Hearing Impairment: Denies Cancer: No Psychosocial: No Integumentary: No Blood Disorders: No Adverse Reaction/Blood Tranf: No Physical Exam Vital Signs - First Documented 12/18/19 14:25 Temp 36.8 Pulse 81 Resp 16 B/P (MAP) 132/82 (99) Pulse Ox 96 O2 Delivery Room Air Capillary Refill : Less Than 3 Seconds Height: 5'2.00" Weight: 140lbs. oz. 63.638813cl; 27.00 BMI Method:Stated General Appearance: WD/WN, no apparent distress Eyes: Bilateral Eye Normal Inspection, Bilateral Eye PERRL, Bilateral Eye EOMI Neck: non-tender, full range of motion Respiratory: no respiratory distress, no accessory muscle use Cardiovascular: regular rate, rhythm, no murmur Gastrointestinal: normal bowel sounds, non tender Neurologic/Psychiatric: alert, normal mood/affect, oriented x 3 Skin: normal color, warm/dry Progress/Results/Core Measures Suspected Sepsis Recent Fever Within 48 Hours: No Infection Criteria Present: Suspected New Infection New/Unexplained Altered Menta: No Sepsis Screen: No Definite Risk SIRS Temperature: Pulse: 81 Respiratory Rate: 16 Blood Pressure 132 /82 Mean: 99 Results/Orders My Orders Orders - DANDRE ESTRADA APRN Influenza A And B Antigens (12/18/19 14:52) Vital Signs/I&O 12/18/19 14:25 Temp 36.8 Pulse 81 Resp 16 B/P (MAP) 132/82 (99) Pulse Ox 96 O2 Delivery Room Air Capillary Refill : Less Than 3 Seconds Blood Pressure Mean: 99 Departure Communication (Admissions) She reports some wheezing though none is appreciable now Impression Primary Impression: Upper respiratory infection Qualified Codes: J06.9 - Acute upper respiratory infection, unspecified Disposition: 01 HOME, SELF-CARE Condition: Stable Departure-Patient Inst. Decision time for Depature: 14:57 Referrals: JACQUELINE HE DO (PCP/Family) Primary Care Physician Patient Instructions: Viral Upper Respiratory Infection, Adult (DC) Scripts Prednisone (Prednisone) 20 Mg Tab 40 MG PO DAILY, #6 TAB 0 Refills Prov: DANDRE ESTRADA APRN 12/18/19 Work/School Note: Work Release Form Date Seen in the Emergency Department: Dec 18, 2019 Return to Work: Dec 21, 2019 DANDRE ESTRADA APRN Dec 18, 2019 14:58
--- NOTE | 2019-12-18 15:21 | Diagnostic Imaging Report ---
CHEST PA/LAT (2 VIEW) Indication: Cough Comparison: 03/23/2017 Findings: No pulmonary mass or consolidation. No pleural effusion or pneumothorax. Normal heart size and mediastinal contours. Impression: No acute cardiopulmonary process. Dictated by: Dictated on workstation # [id number]
[2019-12-18 15:29] VITALS: BP 132/82
== END 2019-12-18 15:29 | disposition home or self-care (01) ==
LOC: EDUNIT# 14:14 → ER 14:15
DX: J06.9 Acute upper respiratory infection, unspecified (principal); E03.9 Hypothyroidism, unspecified; F17.210 Nicotine dependence, cigarettes, uncomplicated; Z88.2 Allergy status to sulfonamides; Z88.1 Allergy status to other antibiotic agents; Z86.010 Personal history of colon polyps
CPT/HCPCS: 71046; 87804

== ENCOUNTER → 2020-04-17 | Outpatient (CLI) | payer OTHER | LOC: LABNPT 06:54 | PROVIDERS: ATTEND Family Medicine | DX: J02.9 Acute pharyngitis, unspecified (principal); M79.10 Myalgia, unspecified site; R51 Headache; Z20.828 Contact with and (suspected) exposure to other viral communicable diseases | CPT/HCPCS: 87635 ==

== ENCOUNTER → 2020-08-14 | Outpatient (CLI) | payer SELFPAY ==
[2020-08-14 12:48] LABS: BASOPHILS % (AUTO) 1 % (0-10); EOSINOPHILS # (AUTO) 0.1 10^3/uL (0.0-0.3); EOSINOPHILS % (AUTO) 2 % (0-10); HEMATOCRIT 44 % (35-52); HEMOGLOBIN 14.7 g/dL (11.5-16.0); LYMPHOCYTES # (AUTO) 2.1 10^3/uL (1.0-4.0); LYMPHOCYTES % (AUTO) 35 % (12-44); MEAN CORPUSCULAR HEMOGLOBIN 31 pg (25-34); MEAN CORPUSCULAR HGB CONC 33 g/dL (32-36); MEAN CORPUSCULAR VOLUME 94 fL (80-99); MEAN PLATELET VOLUME 9.5 fL (9.0-12.2); MONOCYTES # (AUTO) 0.5 10^3/uL (0.0-1.0); MONOCYTES % (AUTO) 9 % (0-12); NEUTROPHILS # (AUTO) 3.1 10^3/uL (1.8-7.8); NEUTROPHILS % (AUTO) 53 % (42-75); PLATELET COUNT 236 10^3/uL (130-400); WHITE BLOOD COUNT 5.9 10^3/uL (4.3-11.0)
[2020-08-14 13:23] LABS: FREE T4 (FREE THYROXINE) 1.19 NG/DL (0.70-1.48)
== END ==
LOC: LAB 12:21
PROVIDERS: ATTEND Family Medicine
DX: E03.9 Hypothyroidism, unspecified (principal); R53.83 Other fatigue
CPT/HCPCS: 36415; 84439; 84443; 85025

== ENCOUNTER 2020-08-15 15:57 | Emergency (ER) | payer SELFPAY ==
[~2020-08-15] VITALS: Ht 165 cm; Wt 75.0 kg
--- NOTE | 2020-08-15 16:58 | ED General ---
General Chief Complaint: Dizziness/Syncope Stated Complaint: NAUSEA;DIZZINESS;SOA;HAND SPASMS Nursing Triage Note: THE PT IS AMBULATORY TO THE ROOM WITHOUT DIFFICULTY. NO DISTRESS IS SEEN ON ARRIVAL. LOC IS NORMAL FOR THE PT. THE PT C/O DIZZINESS. Nursing Sepsis Screen: No Definite Risk Source of Information: Patient Exam Limitations: No Limitations History of Present Illness Date Seen by Provider: Aug 15, 2020 Time Seen by Provider: 16:56 Initial Comments To ER with reports of nausea. She states she was outside working when she got nauseous. She then went inside and got something out of the refrigerator and felt dizzy. She then felt as if she couldn't catch her breath and began to have uncontrollable spasms in her hands and feet. No fevers or chills, she feels back to normal now with the exception of being a little shaky. Shortness of breath is gone. Nausea is gone. She went to the chiropractor yesterday for some midthoracic back pain. Timing/Duration: 1 Hour Severity: Moderate Associated Systoms: Denies Symptoms Allergies and Home Medications Allergies Coded Allergies: sulfamethoxazole (Unverified Allergy, Mild, 05/25/09) trimethoprim (Unverified Allergy, Mild, 05/25/09) Sulfa (Sulfonamide Antibiotics) (Unverified Allergy, Unknown, 12/08/16) Home Medications Cholecalciferol 1,000 Unit Tablet, 2,000 UNITS PO HS, (Reported) Hydrocodone Bit/Acetaminophen 1 Tab Tab, 1-2 EACH PO Q6H PRN for BREAKTHROUGH PAIN Prescribed by: DIXEI BYRD on 11/22/17 0944 Levothyroxine Sodium 50 Mcg Tablet, 50 MCG PO DAILY, (Reported) Prednisone 20 Mg Tab, 40 MG PO DAILY Prescribed by: DANDRE ESTRADA on 12/18/19 1458 Patient Home Medication List Home Medication List Reviewed: Yes Review of Systems Review of Systems Constitutional: see HPI EENTM: see HPI Respiratory: see HPI; No cough; short of breath Cardiovascular: see HPI; No chest pain Gastrointestinal: nausea Genitourinary: no symptoms reported Musculoskeletal: no symptoms reported Skin: no symptoms reported Psychiatric/Neurological: No Symptoms Reported Past Vrdoswp-Icthzl-Hadglz Hx Patient Social History Type Used: Cigarettes 2nd Hand Smoke Exposure: Yes Recent Foreign Travel: No Contact w/Someone Who Travel: No Recent Infectious Disease Expo: No Recent Hopitalizations: No Physical Abuse: No Sexual Abuse: No Mistreated: No Fear: No Immunizations Up To Date Tetanus Booster (TDap): Unknown Seasonal Allergies Seasonal Allergies: Yes Past Medical History Surgeries: Yes (OPEN RSO) Appendectomy, Gallbladder, Oophorectomy, Tubal Ligation Respiratory: No Cardiac: No Neurological: No Reproductive Disorders: Yes (UTERINE FIBROIDS, FIBROCYSTIC BREAST DISEASE) Female Reproductive Disorders: Ovarian Cyst [employer]OWERS History: Menopausal Genitourinary: No Gastrointestinal: Yes Gastroesophageal Reflux, Chronic Constipation, Diverticulosis, Polyps, Hiatal H ernia, Gall Bladder Disease Musculoskeletal: Yes Degenerate Disk Disease, Arthritis, Chronic Back Pain Endocrine: Yes Hypothyroidsim HEENT: No Hearing Impairment: Denies Cancer: No Psychosocial: No Integumentary: No Blood Disorders: No Adverse Reaction/Blood Tranf: No Physical Exam Vital Signs Vital Signs - First Documented 08/15/20 16:49 Temp 35.8 Pulse 77 Resp 16 B/P (MAP) 148/89 (108) Capillary Refill : Less Than 3 Seconds Height, Weight, BMI Height: 5'2.00" Weight: 140lbs. oz. 63.418234vt; 27.00 BMI Method:Stated General Appearance: No Apparent Distress, WD/WN, Other (states she took a Benadryl when this started and she is feeling better now. Speech is a little slow, she does appear a bit sedate.) Eyes: Bilateral Eye Normal Inspection, Bilateral Eye PERRL, Bilateral Eye EOMI HEENT: PERRL/EOMI, TMs Normal Respiratory: Normal Breath Sounds, No Accessory Muscle Use, No Respiratory Distress Cardiovascular: Regular Rate, Rhythm, Normal Peripheral Pulses Gastrointestinal: Normal Bowel Sounds, Non Tender, Soft Extremity: Normal Capillary Refill, Normal Inspection Neurologic/Psychiatric: Alert, Oriented x3 Skin: Normal Color, Warm/Dry Progress/Results/Core Measures Suspected Sepsis Recent Fever Within 48 Hours: No Infection Criteria Present: None New/Unexplained Altered Menta: No Sepsis Screen: No Definite Risk SIRS Temperature: Pulse: 77 Respiratory Rate: 16 Laboratory Tests 08/15/20 17:05: White Blood Count 7.9 Blood Pressure 148 /89 Mean: 108 Laboratory Tests 08/15/20 17:05: Creatinine 0.80, Platelet Count 244, Total Bilirubin 0.4 Results/Orders Lab Results Laboratory Tests Test 08/15/20 17:05 08/15/20 17:08 Range/Units White Blood Count 7.9 4.3-11.0 10^3/uL Red Blood Count 4.91 3.80-5.11 10^6/uL Hemoglobin 15.3 11.5-16.0 g/dL Hematocrit 46 35-52 % Mean Corpuscular Volume 94 80-99 fL Mean Corpuscular Hemoglobin 31 25-34 pg Mean Corpuscular Hemoglobin Concent 33 32-36 g/dL Red Cell Distribution Width 12.2 10.0-14.5 % Platelet Count 244 130-400 10^3/uL Mean Platelet Volume 9.7 9.0-12.2 fL Immature Granulocyte % (Auto) 0 % Neutrophils (%) (Auto) 62 42-75 % Lymphocytes (%) (Auto) 26 12-44 % Monocytes (%) (Auto) 10 0-12 % Eosinophils (%) (Auto) 1 0-10 % Basophils (%) (Auto) 0 0-10 % Neutrophils # (Auto) 4.9 1.8-7.8 10^3/uL Lymphocytes # (Auto) 2.1 1.0-4.0 10^3/uL Monocytes # (Auto) 0.8 0.0-1.0 10^3/uL Eosinophils # (Auto) 0.1 0.0-0.3 10^3/uL Basophils # (Auto) 0.0 0.0-0.1 10^3/uL Immature Granulocyte # (Auto) 0.0 0.0-0.1 10^3/uL Sodium Level 135 135-145 MMOL/L Potassium Level 4.3 3.6-5.0 MMOL/L Chloride Level 98 98-107 MMOL/L Carbon Dioxide Level 28 21-32 MMOL/L Anion Gap 9 5-14 MMOL/L Blood Urea Nitrogen 6 L 7-18 MG/DL Creatinine 0.80 0.60-1.30 MG/DL Estimat Glomerular Filtration Rate > 60 BUN/Creatinine Ratio 8 Glucose Level 92 70-105 MG/DL Calcium Level 9.7 8.5-10.1 MG/DL Corrected Calcium 8.5-10.1 MG/DL Magnesium Level 2.0 1.6-2.4 MG/DL Total Bilirubin 0.4 0.1-1.0 MG/DL Aspartate Amino Transf (AST/SGOT) 23 5-34 U/L Alanine Aminotransferase (ALT/SGPT) 19 0-55 U/L Alkaline Phosphatase 61 40-136 U/L Myoglobin 28.1 10.0-92.0 NG/ML Troponin I < 0.028 <0.028 NG/ML B-Type Natriuretic Peptide 11.6 <100.0 PG/ML Total Protein 7.4 6.4-8.2 GM/DL Albumin 4.6 H 3.2-4.5 GM/DL Urine Color YELLOW Urine Clarity CLEAR Urine pH 6.5 5-9 Urine Specific [place] <=1.005 1.016-1.022 Urine Protein NEGATIVE NEGATIVE Urine Glucose (UA) NEGATIVE NEGATIVE Urine Ketones NEGATIVE NEGATIVE Urine Nitrite NEGATIVE NEGATIVE Urine Bilirubin NEGATIVE NEGATIVE Urine Urobilinogen 0.2 < = 1.0 MG/DL Urine Leukocyte Esterase NEGATIVE NEGATIVE Urine RBC (Auto) TRACE-I NEGATIVE Urine RBC NONE /HPF Urine WBC NONE /HPF Urine Squamous Epithelial Cells RARE /HPF Urine Crystals NONE /LPF Urine Bacteria TRACE /HPF Urine Casts NONE /LPF Urine Mucus NEGATIVE /LPF Urine Culture Indicated NO My Orders Orders - DANDRE ESTRADA APRN Cbc With Automated Diff (08/15/20 16:55) Magnesium (08/15/20 16:55) Chest 1 View, Ap/Pa Only (08/15/20 16:55) Ekg Tracing (08/15/20 16:55) Comprehensive Metabolic Panel (08/15/20 16:55) Myoglobin Serum (08/15/20 16:55) Protime With Inr (08/15/20 16:55) Partial Thromboplastin Time (08/15/20 16:55) O2 (08/15/20 16:55) Monitor-Rhythm Ecg Trace Only (08/15/20 16:55) Lipid Panel (08/16/20 06:00) Ed Iv/Invasive Line Start (08/15/20 16:55) BNP (08/15/20 16:55) Troponin I (08/15/20 16:55) Ua Culture If Indicated (08/15/20 17:16) Vital Signs/I&O 08/15/20 16:49 Temp 35.8 Pulse 77 Resp 16 B/P (MAP) 148/89 (108) Capillary Refill : Less Than 3 Seconds Blood Pressure Mean: 108 Departure Impression Primary Impression: Generalized weakness Additional Impression: PARESTHESIAS OF BILATERAL HANDS AND BILATERAL FEET Disposition: 01 HOME, SELF-CARE Condition: Stable Departure-Patient Inst. Decision time for Depature: 18:05 Referrals: JACQUELINE HE DO (PCP/Family) Primary Care Physician Patient Instructions: NO INSTRUCTIONS GIVEN Add. Discharge Instructions: 1. Return to ER for any concerns 2. Follow-up with her doctor next week 3. All discharge instructions reviewed with patient and/or family. Voiced und erstanding. DANDRE ESTRADA [employer] SENIOR OFFICER Aug 15, 2020 16:58
[2020-08-15 17:22] LABS: BILIRUBIN,URINE NEGATIVE (NEGATIVE); CLARITY,URINE CLEAR; COLOR,URINE YELLOW; GLUCOSE, URINE (UA) NEGATIVE (NEGATIVE); KETONES,URINE NEGATIVE (NEGATIVE); LEUKOCYTE ESTERASE ,URINE NEGATIVE (NEGATIVE); NITRITE,URINE NEGATIVE (NEGATIVE); PH,URINE 6.5 (5-9); PROTEIN,URINE NEGATIVE (NEGATIVE)
[2020-08-15 17:25] LABS: BASOPHILS % (AUTO) 0 % (0-10); EOSINOPHILS # (AUTO) 0.1 10^3/uL (0.0-0.3); EOSINOPHILS % (AUTO) 1 % (0-10); HEMATOCRIT 46 % (35-52); HEMOGLOBIN 15.3 g/dL (11.5-16.0); LYMPHOCYTES # (AUTO) 2.1 10^3/uL (1.0-4.0); LYMPHOCYTES % (AUTO) 26 % (12-44); MEAN CORPUSCULAR HEMOGLOBIN 31 pg (25-34); MEAN CORPUSCULAR HGB CONC 33 g/dL (32-36); MEAN CORPUSCULAR VOLUME 94 fL (80-99); MEAN PLATELET VOLUME 9.7 fL (9.0-12.2); MONOCYTES # (AUTO) 0.8 10^3/uL (0.0-1.0); MONOCYTES % (AUTO) 10 % (0-12); NEUTROPHILS # (AUTO) 4.9 10^3/uL (1.8-7.8); NEUTROPHILS % (AUTO) 62 % (42-75); PLATELET COUNT 244 10^3/uL (130-400); WHITE BLOOD COUNT 7.9 10^3/uL (4.3-11.0)
[2020-08-15 17:41] LABS: ALBUMIN 4.6 GM/DL (3.2-4.5)
[2020-08-15 17:42] LABS: CHLORIDE 98 MMOL/L (98-107); POTASSIUM 4.3 MMOL/L (3.6-5.0); SODIUM 135 MMOL/L (135-145)
[2020-08-15 17:43] LABS: CALCIUM 9.7 MG/DL (8.5-10.1)
--- NOTE | 2020-08-15 17:43 | Diagnostic Imaging Report ---
INDICATION: Pain. EXAMINATION: Single view of the chest was obtained. FINDINGS: The lungs are clear. No failure, effusion or pneumothorax. IMPRESSION: Negative. Dictated by: Dictated on workstation # [id number]
[2020-08-15 17:44] LABS: GLUCOSE 92 MG/DL (70-105); INR 0.9 (0.8-1.4); TOTAL PROTEIN 7.4 GM/DL (6.4-8.2)
[2020-08-15 17:45] LABS: CARBON DIOXIDE 28 MMOL/L (21-32)
[2020-08-15 17:46] LABS: BILIRUBIN,TOTAL 0.4 MG/DL (0.1-1.0)
[2020-08-15 17:47] LABS: ALKALINE PHOSPHATASE 61 U/L (40-136); GFR ESTIMATED > 60
[2020-08-15 17:48] LABS: BUN/CREATININE RATIO 8
[2020-08-15 17:49] LABS: BACTERIA,URINE TRACE /HPF; SQUAMOUS EPITHELIAL CELL,UR RARE /HPF
[2020-08-15 17:50] LABS: ALANINE AMINOTRANSFERASE 19 U/L (0-55)
[2020-08-15 18:11] VITALS: BP 145/90
== END 2020-08-15 18:13 | disposition home or self-care (01) ==
LOC: EDUNIT# 15:57 → ER 16:01
DX: R53.1 Weakness (principal); R20.2 Paresthesia of skin; E03.9 Hypothyroidism, unspecified; G89.29 Other chronic pain; M54.9 Dorsalgia, unspecified; Z77.22 Contact with and (suspected) exposure to environmental tobacco smoke (acute) (chronic); Z88.2 Allergy status to sulfonamides; Z88.1 Allergy status to other antibiotic agents; Z79.890 Hormone replacement therapy; Z79.52 Long term (current) use of systemic steroids; Z79.891 Long term (current) use of opiate analgesic
CPT/HCPCS: 36415; 71045; 80053; 81000; 83735; 83874; 83880; 84484; 85025; 85610; 85730; 93005; 93041

== ENCOUNTER 2021-05-08 15:06 | Emergency (ER) | payer SELFPAY ==
[~2021-05-08] VITALS: Ht 157 cm; Wt 68.0 kg
--- NOTE | 2021-05-08 15:36 | ED General ---
General Chief Complaint: Dizziness/Syncope Stated Complaint: DIZZINESS Source of Information: Patient Exam Limitations: No Limitations History of Present Illness Date Seen by Provider: May 08, 2021 Time Seen by Provider: 15:36 Initial Comments To ER with dizziness and near syncope. She has had 2 of these episodes yesterday that required her to lay down on the floor. It took about 30 minutes before she felt well enough to get back up. During these episodes she had sensation of dyspnea. She otherwise is not dyspneic and does not have chest pain. No fevers or chills she has had a cough. Unvaccinated against Covid and she has not had Covid. No nausea or vomiting. No palpitations. She had an additional episode today. She does report some pain to the back of her head. Timing/Duration: 1-2 Days Severity: Moderate Associated Systoms: Cough, Headaches Allergies and Home Medications Allergies Coded Allergies: sulfamethoxazole (Unverified Allergy, Mild, 05/25/09) trimethoprim (Unverified Allergy, Mild, 05/25/09) Sulfa (Sulfonamide Antibiotics) (Unverified Allergy, Unknown, 12/08/16) Home Medications Cholecalciferol 1,000 Unit Tablet, 2,000 UNITS PO HS, (Reported) Hydrocodone Bit/Acetaminophen 1 Tab Tab, 1-2 EACH PO Q6H PRN for BREAKTHROUGH PAIN Prescribed by: DIXIE BYRD on 11/22/17 0944 Levothyroxine Sodium 50 Mcg Tablet, 50 MCG PO DAILY, (Reported) Prednisone 20 Mg Tab, 40 MG PO DAILY Prescribed by: DANDRE ESTRADA on 12/18/19 1458 Patient Home Medication List Home Medication List Reviewed: Yes Review of Systems Review of Systems Constitutional: see HPI; No chills, No fever EENTM: see HPI Respiratory: no symptoms reported Cardiovascular: no symptoms reported Genitourinary: no symptoms reported Musculoskeletal: no symptoms reported Skin: no symptoms reported Psychiatric/Neurological: No Symptoms Reported Hematologic/Lymphatic: No Symptoms Reported Immunological/Allergic: no symptoms reported Past Zjvcbgb-Lfmkiy-Pvdxdj Hx Patient Social History Tobacco Use?: Yes Tobacco type used: Cigarettes Smoking Status: Current Everyday Smoker Substance use?: No Alcohol Use?: Yes Alcohol Frequency: Rarely Pt feels they are or have been: No Immunizations Up To Date Tetanus Booster (TDap): Unknown Seasonal Allergies Seasonal Allergies: Yes Past Medical History Surgeries: Yes (OPEN RSO) Appendectomy, Gallbladder, Oophorectomy, Tubal Ligation Respiratory: No Cardiac: No Neurological: No Reproductive Disorders: Yes (UTERINE FIBROIDS, FIBROCYSTIC BREAST DISEASE) Female Reproductive Disorders: Ovarian Cyst [employer] F[employer]ER History: Menopausal Genitourinary: No Gastrointestinal: Yes Gastroesophageal Reflux, Chronic Constipation, Diverticulosis, Polyps, Hiatal Hernia, Gall Bladder Disease Musculoskeletal: Yes Degenerate Disk Disease, Arthritis, Chronic Back Pain Endocrine: Yes Hypothyroidsim HEENT: No Hearing Impairment: Denies Cancer: No Psychosocial: No Integumentary: No Blood Disorders: No Adverse Reaction/Blood Tranf: No Physical Exam Vital Signs Vital Signs - First Documented 05/08/21 15:23 Temp 36.8 Pulse 81 Resp 18 B/P (MAP) 147/92 (110) Pulse Ox 99 O2 Delivery Room Air Capillary Refill : Height, Weight, BMI Height: 5'2.00" Weight: 140lbs. oz. 63.575785ub; 27.00 BMI Method:Stated General Appearance: No Apparent Distress, WD/WN Eyes: Bilateral Eye Normal Inspection, Bilateral Eye PERRL, Bilateral Eye EOMI Neck: Full Range of Motion, Normal Inspection Respiratory: Normal Breath Sounds, No Accessory Muscle Use, No Respiratory Distress Cardiovascular: Regular Rate, Rhythm, Normal Peripheral Pulses Gastrointestinal: Non Tender, Soft Neurologic/Psychiatric: Alert, Oriented x3 Skin: Normal Color, Warm/Dry Progress/Results/Core Measures Suspected Sepsis SIRS Temperature: Pulse: Respiratory Rate: Laboratory Tests 05/08/21 15:45: White Blood Count 7.8 Blood Pressure / Mean: Laboratory Tests 05/08/21 15:45: Creatinine 0.86, Platelet Count 228, Total Bilirubin 0.4 Results/Orders Lab Results Laboratory Tests Test 05/08/21 15:45 05/08/21 15:50 05/08/21 16:06 Range/Units White Blood Count 7.8 4.3-11.0 10^3/uL Red Blood Count 4.89 3.80-5.11 10^6/uL Hemoglobin 15.4 11.5-16.0 g/dL Hematocrit 46 35-52 % Mean Corpuscular Volume 94 80-99 fL Mean Corpuscular Hemoglobin 32 25-34 pg Mean Corpuscular Hemoglobin Concent 34 32-36 g/dL Red Cell Distribution Width 12.0 10.0-14.5 % Platelet Count 228 130-400 10^3/uL Mean Platelet Volume 10.4 9.0-12.2 fL Immature Granulocyte % (Auto) 0 % Neutrophils (%) (Auto) 65 42-75 % Lymphocytes (%) (Auto) 23 12-44 % Monocytes (%) (Auto) 11 0-12 % Eosinophils (%) (Auto) 1 0-10 % Basophils (%) (Auto) 0 0-10 % Neutrophils # (Auto) 5.1 1.8-7.8 10^3/uL Lymphocytes # (Auto) 1.7 1.0-4.0 10^3/uL Monocytes # (Auto) 0.8 0.0-1.0 10^3/uL Eosinophils # (Auto) 0.1 0.0-0.3 10^3/uL Basophils # (Auto) 0.0 0.0-0.1 10^3/uL Immature Granulocyte # (Auto) 0.0 0.0-0.1 10^3/uL Sodium Level 139 135-145 MMOL/L Potassium Level 4.3 3.6-5.0 MMOL/L Chloride Level 102 98-107 MMOL/L Carbon Dioxide Level 26 21-32 MMOL/L Anion Gap 11 5-14 MMOL/L Blood Urea Nitrogen 9 7-18 MG/DL Creatinine 0.86 0.60-1.30 MG/DL Estimat Glomerular Filtration Rate > 60 BUN/Creatinine Ratio 10 Glucose Level 94 70-105 MG/DL Calcium Level 9.6 8.5-10.1 MG/DL Corrected Calcium 9.4 8.5-10.1 MG/DL Total Bilirubin 0.4 0.1-1.0 MG/DL Aspartate Amino Transf (AST/SGOT) 28 5-34 U/L Alanine Aminotransferase (ALT/SGPT) 33 0-55 U/L Alkaline Phosphatase 69 40-136 U/L Troponin I < 0.028 <0.028 NG/ML Total Protein 7.1 6.4-8.2 GM/DL Albumin 4.2 3.2-4.5 GM/DL Thyroid Stimulating Hormone (TSH) 1.13 0.35-4.94 UIU/ML Free Thyroxine 1.20 0.70-1.48 NG/DL Urine Color YELLOW Urine Clarity CLEAR Urine pH 6.0 5-9 Urine Specific [place] <=1.005 1.016-1.022 Urine Protein NEGATIVE NEGATIVE Urine Glucose (UA) NEGATIVE NEGATIVE Urine Ketones NEGATIVE NEGATIVE Urine Nitrite NEGATIVE NEGATIVE Urine Bilirubin NEGATIVE NEGATIVE Urine Urobilinogen 0.2 < = 1.0 MG/DL Urine Leukocyte Esterase NEGATIVE NEGATIVE Urine RBC (Auto) TRACE-I NEGATIVE Urine RBC 0-2 /HPF Urine WBC NONE /HPF Urine Squamous Epithelial Cells RARE /HPF Urine Crystals NONE /LPF Urine Bacteria NEGATIVE /HPF Urine Casts NONE /LPF Urine Mucus NEGATIVE /LPF Urine Culture Indicated NO SARS-CoV-2 RNA (RT-PCR) Not Detected Not Detecte My Orders Orders - DANDRE ESTRADA APRN Ct Head Wo (05/08/21 15:46) Cbc With Automated Diff (05/08/21 15:46) Comprehensive Metabolic Panel (05/08/21 15:46) Ua Culture If Indicated (05/08/21 15:46) Covid 19 Inhouse Test (05/08/21 15:46) Ekg Tracing (05/08/21 15:46) Troponin I (05/08/21 15:46) Ed Iv/Invasive Line Start (05/08/21 15:46) Thyroid Stimulating Hormone (05/08/21 15:50) Free T4 (Free Thyroxine) (05/08/21 15:50) Vital Signs/I&O 05/08/21 15:23 Temp 36.8 Pulse 81 Resp 18 B/P (MAP) 147/92 (110) Pulse Ox 99 O2 Delivery Room Air Capillary Refill : Departure Communication (Admissions) EKG at 1556 is sinus rhythm rate of 75 normal intervals no ectopy no ST segment changes. Impression Primary Impression: Syncope Disposition: 01 HOME, SELF-CARE Condition: Stable Departure-Patient Inst. Decision time for Depature: 17:08 Referrals: JACQUELINE HE DO (PCP/Family) Primary Care Physician Patient Instructions: Syncope (Fainting) (DC) Add. Discharge Instructions: . Follow-up with Dr. He. Return to ER for any concerns. All discharge instructions reviewed with patient and/or family. Voiced understanding. DANDRE ESTRADA APRN May 08, 2021 15:36
[2021-05-08 15:58] LABS: BILIRUBIN,URINE NEGATIVE (NEGATIVE); CLARITY,URINE CLEAR; COLOR,URINE YELLOW; GLUCOSE, URINE (UA) NEGATIVE (NEGATIVE); KETONES,URINE NEGATIVE (NEGATIVE); LEUKOCYTE ESTERASE ,URINE NEGATIVE (NEGATIVE); NITRITE,URINE NEGATIVE (NEGATIVE); PROTEIN,URINE NEGATIVE (NEGATIVE)
[2021-05-08 16:05] LABS: BACTERIA,URINE NEGATIVE /HPF; RBC,URINE 0-2 /HPF; SQUAMOUS EPITHELIAL CELL,UR RARE /HPF
[2021-05-08 16:12] LABS: BASOPHILS % (AUTO) 0 % (0-10); EOSINOPHILS # (AUTO) 0.1 10^3/uL (0.0-0.3); EOSINOPHILS % (AUTO) 1 % (0-10); HEMATOCRIT 46 % (35-52); HEMOGLOBIN 15.4 g/dL (11.5-16.0); LYMPHOCYTES # (AUTO) 1.7 10^3/uL (1.0-4.0); LYMPHOCYTES % (AUTO) 23 % (12-44); MEAN CORPUSCULAR HEMOGLOBIN 32 pg (25-34); MEAN CORPUSCULAR HGB CONC 34 g/dL (32-36); MEAN CORPUSCULAR VOLUME 94 fL (80-99); MEAN PLATELET VOLUME 10.4 fL (9.0-12.2); MONOCYTES # (AUTO) 0.8 10^3/uL (0.0-1.0); MONOCYTES % (AUTO) 11 % (0-12); NEUTROPHILS # (AUTO) 5.1 10^3/uL (1.8-7.8); NEUTROPHILS % (AUTO) 65 % (42-75); PLATELET COUNT 228 10^3/uL (130-400); WHITE BLOOD COUNT 7.8 10^3/uL (4.3-11.0)
[2021-05-08 16:19] LABS: ALBUMIN 4.2 GM/DL (3.2-4.5); CHLORIDE 102 MMOL/L (98-107); POTASSIUM 4.3 MMOL/L (3.6-5.0); SODIUM 139 MMOL/L (135-145)
[2021-05-08 16:20] LABS: CALCIUM 9.6 MG/DL (8.5-10.1)
[2021-05-08 16:21] LABS: GLUCOSE 94 MG/DL (70-105); TOTAL PROTEIN 7.1 GM/DL (6.4-8.2)
[2021-05-08 16:22] LABS: CARBON DIOXIDE 26 MMOL/L (21-32)
[2021-05-08 16:23] LABS: BILIRUBIN,TOTAL 0.4 MG/DL (0.1-1.0)
[2021-05-08 16:25] LABS: ALKALINE PHOSPHATASE 69 U/L (40-136); CREATININE SERUM 0.86 MG/DL (0.60-1.30); GFR ESTIMATED > 60
[2021-05-08 16:26] LABS: BUN/CREATININE RATIO 10
[2021-05-08 16:28] LABS: ALANINE AMINOTRANSFERASE 33 U/L (0-55)
--- NOTE | 2021-05-08 17:06 | Diagnostic Imaging Report ---
PROCEDURE: CT head without contrast. TECHNIQUE: Multiple contiguous axial images were obtained through the brain without the use of intravenous contrast. Auto Exposure Controls were utilized during the CT exam to meet ALARA standards for radiation dose reduction. INDICATION: Syncope, headache. COMPARISON: 03/14/2019 FINDINGS: No intracranial hemorrhage. No intracranial mass, mass effect, midline shift, herniation, hydrocephalus, or extra-axial fluid collection. No definite CT evidence of an acute ischemic infarction. The visualized paranasal sinuses are clear. The calvarium and extra calvarial soft tissues are unremarkable. Mild background vascular calcifications. IMPRESSION: Stable appearing examination without acute intracranial abnormality. Dictated by: Dictated on workstation # [id number]
[2021-05-08 17:47] VITALS: BP 136/88
== END 2021-05-08 17:47 | disposition home or self-care (01) ==
LOC: EDUNIT# 15:06 → ER 15:07
DX: R55 Syncope and collapse (principal); E03.9 Hypothyroidism, unspecified; G89.29 Other chronic pain; M54.9 Dorsalgia, unspecified; F17.210 Nicotine dependence, cigarettes, uncomplicated; Z20.822 Contact with and (suspected) exposure to COVID-19; Z79.890 Hormone replacement therapy; Z79.52 Long term (current) use of systemic steroids; Z79.891 Long term (current) use of opiate analgesic
CPT/HCPCS: 36415; 70450; 80053; 81000; 84439; 84443; 84484; 85025; 87636; 93005

== ENCOUNTER → 2021-05-19 | Outpatient (CLI) | payer SELFPAY ==
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
== END ==
LOC: RAD 16:41
PROVIDERS: ATTEND Family Medicine
DX: S19.9XXA Unspecified injury of neck, initial encounter (principal); M47.812 Spondylosis without myelopathy or radiculopathy, cervical region; V89.2XXA Person injured in unspecified motor-vehicle accident, traffic, initial encounter
CPT/HCPCS: 72040

== ENCOUNTER → 2021-05-28 | Outpatient (CLI) | payer SELFPAY ==
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
== END ==
LOC: RAD 16:12
PROVIDERS: ATTEND Family Medicine
DX: M54.6 Pain in thoracic spine (principal); R06.02 Shortness of breath; R42 Dizziness and giddiness; V89.2XXA Person injured in unspecified motor-vehicle accident, traffic, initial encounter
CPT/HCPCS: 36415; 72072; 85379; 85652; 86141

== ENCOUNTER → 2022-02-02 | Outpatient (CLI) | payer BC ==
[~2022-02-02] MED LIST changes: -PSEU-137 PO; +PSEU-182 PO
--- NOTE | 2022-02-02 15:22 | Diagnostic Imaging Report ---
TIME OF EXAM: 02/02/2022 1:27 PM REASON FOR EXAM: Lung cancer screening. 38 pack year smoking history. COMPARISON: 03/23/2017. TECHNIQUE: Low Dose CT helical images obtained through the chest. Sagittal and coronal reformats were obtained and reviewed. Dose reduction techniques were utilized. CTDI vol: 2.22 mGy FINDINGS: Nodules: -- A) 3] mm, indeterminate noncalcified solid right lower lobe nodule (image 38 series 602) Lungs: Lung volumes are normal. No significant emphysema or fibrosis is present. There is no appreciable bronchiectasis. No pulmonary mass or consolidation is present. A thin-walled cyst is seen within the left lung base. No central endoluminal airway lesion is seen. Heart and Mediastinum: Heart size is within normal limits. Aortic atherosclerosis is present without aneurysm. No pericardial effusion is present. No axillary, supraclavicular, mediastinal, internal mammary, or hilar adenopathy is present by CT size criteria. Normal size and attenuation of the visualized thyroid gland. Pleura: Normal pleural spaces. No effusion or pneumothorax. No pleural nodularity or mass. Abdomen: Included views of the upper abdomen demonstrate no acute abnormality. The gallbladder surgically absent. Bones and soft tissues: Regional skeletal and soft tissue structures are age-appropriate. IMPRESSION: 1. Nodule in the right lower lobe measuring 3 mm. No suspicious pulmonary nodules. Recommend continued surveillance with low-dose chest CT in 12 months. 2. No thoracic lymphadenopathy. Result code: Category 2: Benign Appearance or Behavior Follow up: Continue annual screening with LDCT in 12 months Dictated by: Dictated on workstation # [id number]
--- NOTE | 2022-02-02 17:07 | Diagnostic Imaging Report ---
INDICATION: Postmenopausal screening for osteoporosis COMPARISON: None FINDINGS: AP Spine L1-L4: [BMD (g/cm2): 1.122] [T-Score: -0.7] [Z-Score: 0.7] [BMD Previous: NA] [BMD % Change: NA] LT Hip Neck: [BMD (g/cm2): 0.739] [T-Score: -2.2] [Z-Score: -0.8] LT Hip Total: [BMD (g/cm2):0.870] [T-Score:-1.1] [Z-Score: 0.0] [BMD Previous: NA] [BMD % Change: NA] RT Hip Neck: [BMD (g/cm2):0.721] [T-Score:-2.3] [Z-Score:-0.9] RT Hip Total: [BMD (g/cm2):0.897] [T-score:-0.9] [Z-Score:0.2] [BMD Previous:NA] [BMD % Change:NA] *Indicates significant change from prior examination based on 95% confidence level. World Health Organization criteria for BMD interpretation classify patients as Normal (T-score at or above -1.0), Osteopenic (T-score between -1.0 and -2.5) or Osteoporotic (T-score at or below -2.5). LIMITATIONS AND MODIFICATION: None. FRACTURE RISK (FRAX SCORE): The ten year probability of (%): Major Osteoporotic Fracture: [11.7] Hip Fracture: [2.0] IMPRESSION: 1. Osteopenia (Low bone mass). 2. Baseline examination. 3. See below National Osteoporosis Foundation guidelines on when to potentially initiate pharmacologic therapy. Based on the National Osteoporosis Foundation Guidelines, pharmacologic treatment should be initiated in any of the following, unless clinical conditions suggest otherwise: * Any patient with prior fragility fracture of the hip or vertebrae. A spine fracture indicates 5X risk for subsequent spine fracture and 2X risk for subsequent hip fracture. * Osteoporosis (T-score <-2.5). * Postmenopausal women and men age 50 and older with low bone mass/osteopenia (T-score between -1.0 and -2.5) by DXA and 10-year major osteoporotic fracture greater than 20% or a 10-year probability of hip fracture greater than 3%. These fracture risks are supplied above in the FRAX score, if applicable. * Clinician judgement and/or patient preferences may indicate treatment for people with 10-year fracture probabilities above or below these levels. Dictated by: Dictated on workstation # [id number]
== END ==
LOC: RAD 12:58
PROVIDERS: ATTEND Family Medicine
DX: Z12.2 Encounter for screening for malignant neoplasm of respiratory organs (principal); R91.8 Other nonspecific abnormal finding of lung field; M85.80 Other specified disorders of bone density and structure, unspecified site; F17.210 Nicotine dependence, cigarettes, uncomplicated; Z78.0 Asymptomatic menopausal state
CPT/HCPCS: 71271; 77080

== ENCOUNTER → 2022-02-02 | Outpatient (CLI) | payer BC ==
--- NOTE | 2022-02-02 16:09 | Diagnostic Imaging Report ---
INDICATION: Routine screening. COMPARISON: 11/29/2018 and 07/20/2017. TECHNIQUE: 2D and 3D bilateral screening mammography was performed with CAD. FINDINGS: Both breasts are heterogeneously dense, limiting the sensitivity of mammography. No mass or malignant-appearing microcalcifications are seen. The axillae are unremarkable. IMPRESSION: No mammographic features suspicious for malignancy are identified. ACR BI-RADS Category 1: Negative. Result letter will be mailed to the patient. Note: At least 10% of breast cancer is not imaged by mammography. Dictated by: Dictated on workstation # [id number]
== END ==
LOC: RAD 14:15
PROVIDERS: ATTEND Obstetrics & Gynecology
DX: Z12.31 Encounter for screening mammogram for malignant neoplasm of breast (principal)
CPT/HCPCS: 77063; 77067

== ENCOUNTER 2022-02-18 05:42 | Outpatient (CLI) | payer BC ==
[~2022-02-18] VITALS: Ht 157.5 cm; Wt 69.1 kg
[2022-02-18] MEDS ORDERED: CYCL5TAB PO (10:07)
[2022-02-18] MEDS ORDERED: DIPH25CA79 PO (10:07)
== END 2022-02-18 10:32 | disposition home or self-care (01) ==
LOC: PREOP 05:42
PROVIDERS: ATTEND Surgery
DX: Z01.818 Encounter for other preprocedural examination (principal)

== ENCOUNTER 2022-03-02 09:18 | Day surgery (SDC) | payer BC ==
[~2022-03-02] VITALS: Ht 157.5 cm; Wt 69.1 kg
[~2022-03-02 09:18] MED LIST changes: +CYCL5TAB PO
[2022-03-02] MEDS ORDERED: LACTATED RINGERS 1,000 ML IV STA (09:27)
[2022-03-02 09:42] VITALS: BP 128/81
[2022-03-02] MEDS ORDERED: PROPOFOL INJECTION 50 ML IV ONE (11:10)
[2022-03-02] MEDS ORDERED: MIDAZOLAM 2 MG/2 ML (VERSED) VIAL ONE (11:10)
--- NOTE | 2022-03-02 11:49 | Discharge Inst-Simple/Standard ---
Discharge Inst-Standard Patient Instructions/Follow Up Plan of Care/Instructions/FU: 2 weeks Federico Activity as Tolerated: Yes Discharge Diet: Regular Diet (high fiber) SHAMEKA AGRAWAL DO March 02, 2022 11:49
[2022-03-02 11:50] VITALS: BP 91/57
[2022-03-02 11:55] VITALS: BP 141/83
[2022-03-02 12:00] VITALS: BP 117/84
--- NOTE | 2022-03-02 12:11 | Anesthesia-General Post-Op ---
MAC Patient Condition Mental Status/LOC: Same as Preop Cardiovascular: Satisfactory Nausea/Vomiting: Absent Respiratory: Satisfactory Pain: Controlled Complications: Absent Post Op Complications Complications None Follow Up Care/Instructions Patient Instructions None needed. Anesthesiology Discharge Order Discharge Order Patient is doing well, no complaints, stable vital signs, no apparent adverse anesthesia problems. No complications reported per nursing. RUFINO HODGES CRNA March 02, 2022 12:11
[2022-03-02 12:30] VITALS: BP 137/86
--- NOTE | 2022-03-02 16:14 | OPERATIVE REPORT ---
DATE OF SERVICE: 03/02/2022 PREOPERATIVE DIAGNOSES: History of colon polyps, history of diverticulitis. POSTOPERATIVE DIAGNOSES: Diverticulosis, colon polyps. PROCEDURE: Colonoscopy with hot biopsy polypectomy x7 and snare polypectomy x3. SURGEON: Shameka Caballero DO ANESTHESIA: Per EDI PROGRAMMER. ESTIMATED BLOOD LOSS: None. COMPLICATIONS: None. INDICATIONS: The patient is a 61-year-old female with history of diverticulitis and also history of polyps. She understands risks and benefits of procedure and wishes to proceed. Consent was signed in the chart. DESCRIPTION OF PROCEDURE: The patient was taken to the endoscopy suite, placed in left lateral recumbent position. Timeout was performed. Digital rectal exam was performed. No palpable polyps, masses or ulcerations. Scope was inserted in the rectum and advanced all the way to cecum with minimal difficulty. Prep was adequate with irrigation and suction. In the cecum, a small polyp was present, which hot biopsy polypectomy was performed. Scope was then continuously retracted back into the ascending colon, a larger polyp was present, which snare polypectomy was performed. Another small polyp was present near this area, which hot biopsy polypectomy was performed. Scope was continuously retracted back into the transverse colon, where two polyps were present, which snare polypectomies were performed on both of these polyps. Scope was then continuously retracted back. No polyps, masses or ulcerations within the remainder of the transverse and descending colon and sigmoid colon. Four small polyps were present, which hot biopsy polypectomy was performed. Scope was then continuously retracted back into the rectum where another polyp was present, which hot biopsy polypectomy was performed. Scope was retroflexed noting no other pathology. Scope was returned to its normal position, slowly withdrawn until completely removed. The patient tolerated the procedure well without any complications. She was taken to recovery room in stable condition. RECOMMENDATIONS: The patient will need repeat colonoscopy in one year due to the number of polyps. We will follow up on biopsy results in two weeks. Any issues before this time frame, she should be reevaluated at that time. Job ID: [id number] DocumentID: [id number] Dictated Date: 03/02/2022 11:55:30 Tenon Machine Operator Date: 03/02/2022 16:13:39 Dictated By: SHAMEKA CABALLERO DO
== END 2022-03-02 12:40 | disposition home or self-care (01) ==
LOC: ENDO 09:18
PROVIDERS: ATTEND Surgery
DX: D12.0 Benign neoplasm of cecum (principal); D12.2 Benign neoplasm of ascending colon; D12.3 Benign neoplasm of transverse colon; K63.5 Polyp of colon; K62.1 Rectal polyp
CPT/HCPCS: 88305

== ENCOUNTER 2023-03-10 15:15 | Emergency (ER) | payer BC, OTHER ==
[~2023-03-10] VITALS: Ht 157.5 cm; Wt 64.4 kg
[2023-03-10] MEDS ORDERED: NS IV 1000 ML 1,000 ML IV STA (15:32)
--- NOTE | 2023-03-10 15:38 | ED Abdominal Pain ---
General Chief Complaint: Abdominal/GI Problems Stated Complaint: RIGHT SIDE PAIN Nursing Triage Note: PT AMB TO ED BY POV WITH C/O RLQ PAIN. REPORTS INTERMITTENT STABBING RLQ PAIN X 2 DAYS, PAIN NOW RADIATES TO R LOWER BACK. C/O NAUSEA. PT HAS NOT TAKEN ANYTHING FOR PAIN. PT REPORTS SHE THOUGHT IT R/T DIVERTICULITIS AND HAS BEEN TAKING LAXATIVES. Source of Information: Patient Exam Limitations: No Limitations History of Present Illness Date Seen by Provider: March 10, 2023 Time Seen by Provider: 15:36 Initial Comments Patient is a 62-year-old female with a history of of cholecystectomy, appendectomy, right oophorectomy who presents ED with right lower quad abdominal pain. This pain started yesterday. Described as sharp. Pain is now radiated to her right flank. Pain is intermittent. Patient states today she noted the right side of her flank was swelling. She feels like the back part of her taste buds are swollen. She took Benadryl, Pepcid and laxatives at home. History of diverticulitis. She denies of any pain with urination but reports some mild pressure. Denies any vaginal bleeding, fever, vomiting, diarrhea, chest pain, cough or shortness of breath. Unsure if she has a history of kidney stones. Denies take anything specifically for pain. Allergies and Home Medications Allergies Coded Allergies: sulfamethoxazole (Unverified Allergy, Mild, 05/25/09) trimethoprim (Unverified Allergy, Mild, 05/25/09) Sulfa (Sulfonamide Antibiotics) (Unverified Allergy, Unknown, 12/08/16) Patient Home Medication List Home Medication List Reviewed: Yes Cholecalciferol (Vitamin D) 1,000 Unit Tablet, 2,000 UNITS PO HS, (Reported) Entered as Reported by: EVELINA FREDERICK on 05/25/09 1143 Cyclobenzaprine HCl (Cyclobenzaprine HCl) 5 Mg Tablet, 5 MG PO TID, (Reported) Entered as Reported by: MARGARITA GLASS on 02/18/22 1007 Dicyclomine HCl (Dicyclomine HCl) 20 Mg Tablet, 20 MG PO TID PRN for ABDOMINAL PAIN Prescribed by: CESAR GORDILLO on 03/10/23 1710 Diphenhydramine HCl (Benadryl) 25 Mg Capsule, 25 MG PO Q4H, (Reported) Entered as Reported by: MARGARITA GLASS on 02/18/22 1007 Levothyroxine Sodium (Synthroid) 50 Mcg Tablet, 50 MCG PO DAILY, (Reported) Entered as Reported by: QUOC LAKE on 05/23/16 4470 Review of Systems Review of Systems Constitutional: No chills, No diaphoresis, No fever, No malaise, No weakness EENTM: No Eye Pain Respiratory: Denies Cough, Denies Orthopnea, Denies Shortness of Air, Denies SOA With Exertion, Denies SOA at Rest, Denies Wheezing Cardiovascular: Denies Chest Pain Gastrointestinal: Abdominal Pain; Denies Nausea, Denies Vomiting Genitourinary: Denies Burning, Denies Discharge, Denies Drainage, Denies Frequency; Flank Pain Musculoskeletal: back pain; No joint pain Skin: No change in color, No change in hair/nails All Other Systems Reviewed Negative Unless Noted: Yes Past Llbjmkg-Oiehuv-Advwau Hx Patient Social History Tobacco Use?: Yes Tobacco type used: Cigarettes Smoking Status: Current Everyday Smoker Use of E-Cig and/or Vaping dev: No Substance use?: No Alcohol Use?: Yes Alcohol Frequency: Rarely Pt feels they are or have been: No Immunizations Up To Date Tetanus Booster (TDap): Unknown Influenza Vaccine Up-to-Date: No; Not Current First/Initial COVID19 Vaccinat: N/A Seasonal Allergies Seasonal Allergies: Yes Past Medical History Surgery/Hospitalization HX: DIVERTICULITIS [place], [facility] Surgeries: Yes (OPEN RSO) Appendectomy, Gallbladder, Oophorectomy, Tubal Ligation Respiratory: No Currently Using CPAP: No Currently Using BIPAP: No Cardiac: No Neurological: No Reproductive Disorders: Yes (UTERINE FIBROIDS, FIBROCYSTIC BREAST DISEASE) Female 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 Genitourinary: No Gastrointestinal: Yes Gastroesophageal Reflux, Chronic Constipation, Diverticulosis, Polyps, Hiatal He rnia, Gall Bladder Disease Musculoskeletal: Yes Degenerate Disk Disease, Arthritis, Chronic Back Pain Endocrine: Yes Hypothyroidsim HEENT: No Hearing Impairment: Denies Cancer: No Psychosocial: No Integumentary: No Blood Disorders: No Adverse Reaction/Blood Tranf: No Physical Exam Vital Signs Vital Signs - First Documented 03/10/23 15:25 Temp 36.2 Pulse 82 Resp 16 B/P (MAP) 140/98 (112) Pulse Ox 96 O2 Delivery Room Air Capillary Refill : Less Than 3 Seconds Height/Weight/BMI Height: 5'2.00" Weight: 140lbs. oz. 63.313722yn; 25.00 BMI Method:Stated General Appearance: WD/WN, no apparent distress HEENT: PERRL/EOMI, normal ENT inspection, TMs normal, pharynx normal Neck: non-tender, full range of motion, supple Respiratory: chest non-tender, lungs clear, normal breath sounds, no respiratory distress, no accessory muscle use Cardiovascular: regular rate, rhythm, no edema, no gallop, no JVD Gastrointestinal: normal bowel sounds, non tender, soft, no organomegaly Extremities: normal range of motion, non-tender, normal inspection, no pedal edema, no calf tenderness Back: normal inspection, no vertebral tenderness, CVA tenderness (R) Neurologic/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: 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, no motor/sensory deficits, alert, normal mood/affect, oriented x 3 Skin: normal color Progress/Results/Core Measures Results/Orders Lab Results Laboratory Tests Test 03/10/23 15:35 03/10/23 16:02 Range/Units White Blood Count 6.3 4.3-11.0 10^3/uL Red Blood Count 4.58 3.80-5.11 10^6/uL Hemoglobin 14.2 11.5-16.0 g/dL Hematocrit 42 35-52 % Mean Corpuscular Volume 93 80-99 fL Mean Corpuscular Hemoglobin 31 25-34 pg Mean Corpuscular Hemoglobin Concent 34 32-36 g/dL Red Cell Distribution Width 12.2 10.0-14.5 % Platelet Count 180 130-400 10^3/uL Mean Platelet Volume 10.3 9.0-12.2 fL Immature Granulocyte % (Auto) 0 % Neutrophils (%) (Auto) 45 42-75 % Lymphocytes (%) (Auto) 45 H 12-44 % Monocytes (%) (Auto) 10 0-12 % Eosinophils (%) (Auto) 0 0-10 % Basophils (%) (Auto) 0 0-10 % Neutrophils # (Auto) 2.8 1.8-7.8 X 10^3 Lymphocytes # (Auto) 2.8 1.0-4.0 X 10^3 Monocytes # (Auto) 0.6 0.0-1.0 X 10^3 Eosinophils # (Auto) 0.0 0.0-0.3 10^3/uL Basophils # (Auto) 0.0 0.0-0.1 10^3/uL Immature Granulocyte # (Auto) 0.0 0.0-0.1 10^3/uL Sodium Level 140 135-145 MMOL/L Potassium Level 4.2 3.6-5.0 MMOL/L Chloride Level 105 98-107 MMOL/L Carbon Dioxide Level 26 21-32 MMOL/L Anion Gap 9 5-14 MMOL/L Blood Urea Nitrogen 10 7-18 MG/DL Creatinine 0.86 0.60-1.30 MG/DL Estimat Glomerular Filtration Rate 75 BUN/Creatinine Ratio 12 Glucose Level 83 70-105 MG/DL Calcium Level 10.0 8.5-10.1 MG/DL Corrected Calcium 9.8 8.5-10.1 MG/DL Total Bilirubin 0.6 0.1-1.0 MG/DL Aspartate Amino Transf (AST/SGOT) 28 5-34 U/L Alanine Aminotransferase (ALT/SGPT) 24 0-55 U/L Alkaline Phosphatase 45 40-136 U/L Total Protein 6.7 6.4-8.2 GM/DL Albumin 4.3 3.2-4.5 GM/DL Lipase 27 8-78 U/L Urine Color YELLOW Urine Clarity CLEAR Urine pH 6.0 5-9 Urine Specific [place] <=1.005 1.016-1.022 Urine Protein NEGATIVE NEGATIVE Urine Glucose (UA) NEGATIVE NEGATIVE Urine Ketones NEGATIVE NEGATIVE Urine Nitrite NEGATIVE NEGATIVE Urine Bilirubin NEGATIVE NEGATIVE Urine Urobilinogen 0.2 < = 1.0 MG/DL Urine Leukocyte Esterase NEGATIVE NEGATIVE Urine RBC (Auto) TRACE-I H NEGATIVE Urine RBC NONE /HPF Urine WBC RARE /HPF Urine Squamous Epithelial Cells 0-2 /HPF Urine Crystals NONE /LPF Urine Bacteria TRACE /HPF Urine Casts NONE /LPF Urine Mucus NEGATIVE /LPF Urine Culture Indicated NO My Orders Orders - JEREMY BASS Cbc With Automated Diff (03/10/23 15:32) Comprehensive Metabolic Panel (03/10/23 15:32) Lipase (03/10/23 15:32) Ua Culture If Indicated (03/10/23 15:32) Ns Iv 1000 Ml (Sodium Chloride 0.9%) (03/10/23 15:32) Ketorolac Injection (Toradol Injection) (03/10/23 15:45) Ct Abd/Pelvis Wo(Kidney Stone) (03/10/23 15:34) Medications Given in ED Current Medications Medications Dose Ordered Sig/Narayan Route Start Time Stop Time Status Last Admin Dose Admin Ketorolac Tromethamine 30 mg ONCE ONCE IVP 03/10/23 15:45 03/10/23 15:46 DC 03/10/23 15:59 30 MG Vital Signs/I&O 03/10/23 03/10/23 15:25 17:22 Temp 36.2 Pulse 82 76 Resp 16 16 B/P (MAP) 140/98 (112) 130/80 Pulse Ox 96 97 O2 Delivery Room Air Room Air Blood Pressure Mean: 112 Departure Communication (PCP) Reviewed previous ER visits, H&P, lab testing. Differential diagnosis of cystitis, pyelonephritis, urolithiasis, nephrolithiasis, musculoskeletal due to the pain right lower quadrant with radiation to right flank CBC, CMP, urinalysis was ordered. CBC, CMP grossly unremarkable. Urinalysis showed hematuria without evidence of infection. Patient Was started on liter fluid and given Toradol with improvement of pain. Denies of any specific injury. History of cholecystectomy, appendectomy, right oophorectomy. CT abdomen pelvis due to the pain was negative for nephrolithiasis, urolithiasis. Pain well controlled. She does report some swelling to the right side which I do not necessarily appreciate on exam. No evidence of rash. She has no bowel or urine incontinence, saddle paresthesia. No hip tenderness. Unspecified abdominal pain. Potentially musculoskeletal. Patient does report some bloating sens ation. Denies history of IBS or inflammatory bowel disease. No vomiting or dark tarry stool or mucousy stool or diarrhea. May try Bentyl for the abdominal pain. Suspect Tylenol would likely do better she cannot take NSAIDs. I do not think narcotics is necessarily at this time. Recommend follow-up with PCP 2 to 3 days for reevaluation. If any worsening symptoms return back to ED for further evaluation. Impression Primary Impression: Abdominal pain Disposition: 01 HOME, SELF-CARE Condition: Stable Departure-Patient Inst. Decision time for Depature: 17:09 Referrals: ORENDER, S DO (PCP/Family) Primary Care Physician Patient Instructions: Abdominal Pain, Adult ED Add. Discharge Instructions: This appears to be more musculoskeletal. May continue with Tylenol at home. May try Bentyl for abdominal cramping. recommend following up with your primary care physician 2 to 3 days for reevaluation. Return back to ED if symptoms worsen All discharge instructions reviewed with patient and/or family. Voiced understanding. Scripts Dicyclomine HCl (Dicyclomine HCl) 20 Mg Tablet 20 MG PO TID PRN for ABDOMINAL PAIN, #12 TAB Prov: JEREMY BASS 03/10/23 JEREMY BASS March 10, 2023 15:38
[2023-03-10] MEDS ORDERED: KETOROLAC 30 MG/ML VIAL IVP ONE (15:45)
[2023-03-10 16:09] LABS: BASOPHILS % (AUTO) 0 % (0-10); EOSINOPHILS % (AUTO) 0 % (0-10); HEMATOCRIT 42 % (35-52); HEMOGLOBIN 14.2 g/dL (11.5-16.0); LYMPHOCYTES # (AUTO) 2.8 X 10^3 (1.0-4.0); LYMPHOCYTES % (AUTO) 45 % (12-44); MEAN CORPUSCULAR HEMOGLOBIN 31 pg (25-34); MEAN CORPUSCULAR HGB CONC 34 g/dL (32-36); MEAN CORPUSCULAR VOLUME 93 fL (80-99); MEAN PLATELET VOLUME 10.3 fL (9.0-12.2); MONOCYTES # (AUTO) 0.6 X 10^3 (0.0-1.0); MONOCYTES % (AUTO) 10 % (0-12); NEUTROPHILS # (AUTO) 2.8 X 10^3 (1.8-7.8); NEUTROPHILS % (AUTO) 45 % (42-75); PLATELET COUNT 180 10^3/uL (130-400); WHITE BLOOD COUNT 6.3 10^3/uL (4.3-11.0)
[2023-03-10 16:18] LABS: ALBUMIN 4.3 GM/DL (3.2-4.5)
[2023-03-10 16:19] LABS: POTASSIUM 4.2 MMOL/L (3.6-5.0)
[2023-03-10 16:21] LABS: TOTAL PROTEIN 6.7 GM/DL (6.4-8.2)
[2023-03-10 16:23] LABS: BILIRUBIN,TOTAL 0.6 MG/DL (0.1-1.0)
[2023-03-10 16:25] LABS: CREATININE SERUM 0.86 MG/DL (0.60-1.30)
[2023-03-10 16:38] LABS: BILIRUBIN,URINE NEGATIVE (NEGATIVE); CLARITY,URINE CLEAR; COLOR,URINE YELLOW; GLUCOSE, URINE (UA) NEGATIVE (NEGATIVE); KETONES,URINE NEGATIVE (NEGATIVE); LEUKOCYTE ESTERASE ,URINE NEGATIVE (NEGATIVE); NITRITE,URINE NEGATIVE (NEGATIVE); PROTEIN,URINE NEGATIVE (NEGATIVE)
--- NOTE | 2023-03-10 16:40 | Diagnostic Imaging Report ---
EXAMINATION: CT abdomen and pelvis without contrast. TECHNIQUE: Multiple contiguous axial images were obtained through the abdomen and pelvis without the use of intravenous contrast. All CT scans use one or more of the following dose optimizing techniques: automated exposure control, MA and/or KvP adjustment based on patient size and exam type or iterative reconstruction. HISTORY: Right flank pain. COMPARISON: 03/23/2017 FINDINGS: Limited views of the lower thorax are unremarkable. The liver is normal without focal lesion. There is no biliary ductal dilation. The gallbladder is absent. Pancreas is normal. Spleen is normal. Adrenal glands are normal. The kidneys are normal. There is no hydronephrosis. Urinary bladder is normal. No renal or ureteral stones. There are phleboliths in the pelvis. Bowel is normal in caliber without obstruction or inflammation. No free fluid or air. No abdominal or pelvic lymphadenopathy. Aorta is normal in caliber without aneurysm. There are no suspicious osseus lesions. IMPRESSION: 1. No acute abnormality in the abdomen or pelvis. Dictated by: Dictated on workstation # [id number]
[2023-03-10 16:47] LABS: BACTERIA,URINE TRACE /HPF; SQUAMOUS EPITHELIAL CELL,UR 0-2 /HPF; WBC,URINE RARE /HPF
[2023-03-10] MEDS ORDERED: DICY20TA PO (17:10)
[2023-03-10 17:22] VITALS: BP 130/80
== END 2023-03-10 17:24 | disposition home or self-care (01) ==
LOC: EDUNIT# 15:15 → ER 15:17
DX: R10.31 Right lower quadrant pain (principal); R31.9 Hematuria, unspecified; F17.210 Nicotine dependence, cigarettes, uncomplicated; Z90.49 Acquired absence of other specified parts of digestive tract; Z90.721 Acquired absence of ovaries, unilateral; Z28.310 Unvaccinated for COVID-19
CPT/HCPCS: 36415; 74176; 80053; 81000; 83690; 85025

== ENCOUNTER 2023-03-23 05:35 | Outpatient (CLI) | payer BC, OTHER ==
[~2023-03-23] VITALS: Ht 157.5 cm; Wt 65.3 kg
[~2023-03-23 05:35] MED LIST changes: +DICY20TA PO
== END 2023-03-23 11:57 | disposition home or self-care (01) ==
LOC: PREOP 05:35
PROVIDERS: ATTEND Surgery
DX: Z01.818 Encounter for other preprocedural examination (principal)

== ENCOUNTER → 2023-04-08 | Outpatient (CLI) | payer MEDICARE, OTHER ==
[~2023-04-08] MED LIST changes: +PANT40TA2 PO
== END ==
LOC: LAB 08:39
PROVIDERS: ATTEND Family Medicine
DX: Z00.00 Encounter for general adult medical examination without abnormal findings (principal); E78.00 Pure hypercholesterolemia, unspecified; R53.83 Other fatigue
CPT/HCPCS: 36415; 80061; 84443

== ENCOUNTER → 2023-04-13 | Outpatient (CLI) | payer MEDICARE, OTHER ==
--- NOTE | 2023-04-13 10:59 | Diagnostic Imaging Report ---
INDICATION: Routine screening. COMPARISON: 02/02/2022 and 11/29/2018. TECHNIQUE: 2D and 3D bilateral lateral screening mammography was performed with CAD. FINDINGS: Both breasts are heterogeneously dense, limiting the sensitivity of mammography. There is a density noted in the right breast, best seen on the CC view, at the nipple line at posterior depth which appears to be increased since the prior exam. No definite correlate on the MLO view is identified. There are vascular calcifications in both breasts. No malignant-appearing microcalcifications are identified. The axillae are unremarkable. IMPRESSION: Right breast density. Additional views including spot compression CC and rolled CC views are recommended for further evaluation. ACR BI-RADS Category 0: Incomplete. (Needs additional imaging evaluation). Result letter will be mailed to the patient. Note: At least 10% of breast cancer is not imaged by mammography. Dictated by: Dictated on workstation # [id number]
== END ==
LOC: RAD 07:31
PROVIDERS: ATTEND Family Medicine
DX: Z12.31 Encounter for screening mammogram for malignant neoplasm of breast (principal)
CPT/HCPCS: 77063; 77067

== ENCOUNTER → 2023-04-25 | Outpatient (CLI) | payer MEDICARE, MEDICAID ==
--- NOTE | 2023-04-25 13:33 | Diagnostic Imaging Report ---
INDICATION: Right breast density. Patient presents for additional views. COMPARISON: Correlation is made with the prior screening study from 04/13/2023. TECHNIQUE: Unilateral right 2D and 3D diagnostic mammography was performed. This includes rolled CC, spot compression CC, and spot compression mediolateral and conventional 90 degree lateral views of the right breast. FINDINGS: There is a persistent density noted at the nipple line on the CC views 7 cm from the nipple. It is uncertain if this is superiorly or inferiorly located on the lateral views. Further evaluation with ultrasound is recommended. No suspicious microcalcifications are seen. IMPRESSION: Persistent density in the right breast, as described. Further evaluation with ultrasound is recommended and will be performed today. ACR BI-RADS Category 0: Incomplete. (Needs additional imaging evaluation). Result letter will be mailed to the patient. Note: At least 10% of breast cancer is not imaged by mammography. Dictated by: Dictated on workstation # [id number]
--- NOTE | 2023-04-25 14:14 | Diagnostic Imaging Report ---
INDICATION: Right breast density. COMPARISON: Correlation is made with the diagnostic mammogram from earlier this same day and a screening mammogram from 04/13/2023. FINDINGS: Sonographic interrogation of the upper and lower aspect of the right breast was performed in a vertical bandlike configuration 7 cm from the nipple. No definite sonographic abnormality is seen. No solid or cystic mass is detected. IMPRESSION: No sonographic abnormality is identified. The density noted mammographically could represent superimposed tissue. Even so, a followup right mammogram in 6 months is recommended to show continued stability. ACR BI-RADS Category 3: Probably benign findings. Dictated by: Dictated on workstation # [id number]
== END ==
LOC: RAD 12:56
PROVIDERS: ATTEND Family Medicine
DX: R92.2 Inconclusive mammogram (principal)
CPT/HCPCS: 76642; 77065; G0279

== ENCOUNTER → 2023-06-06 | Outpatient (CLI) | payer OTHER, MEDICAID ==
--- NOTE | 2023-06-06 18:17 | Diagnostic Imaging Report ---
EXAMINATION: CT Lung Screening. INDICATION: Screening for lung cancer, [id number] history of smoking, current smoker. TECHNIQUE: Noncontrast, low-dose CT imaging performed according to the lung cancer screening protocol. Auto Exposure Controls were utilize during the CT exam to meet ALARA standards for radiation dose reduction. COMPARISON: 02/02/2022 and 03/23/2017. FINDINGS: No significant adenopathy within the chest. No aneurysmal dilatation of the thoracic aorta. The heart is within normal limits in size. No pericardial effusion. No pleural effusion. The trachea is patent. No pneumothorax. Cyst versus bleb within the left lower lobe. 0.3 cm right upper lobe pulmonary nodule, series 2, image 44, is stable. 0.2 cm right middle lobe pulmonary nodule, series 2, image 118. 0.3 cm subpleural right lower lobe pulmonary nodule is unchanged, series 602, image 34. Calcified granuloma within the right middle lobe. No suspicious or actionable pulmonary nodule. Cholecystectomy. The visualized upper abdomen is otherwise unremarkable. Mild scattered osseous degenerative changes without acute osseous abnormality. IMPRESSION: No suspicious or actionable pulmonary nodule. Tiny 0.3 cm and smaller pulmonary nodules are again identified. LUNG-RADS CATEGORY: 2: Benign appearance or behavior. MODIFIER: None. FOLLOW-UP: Continued annual low-dose CT of the chest in 12 months. Dictated by: Dictated on workstation # [id number]
== END ==
LOC: RAD 16:58
PROVIDERS: ATTEND Family Medicine
DX: Z12.2 Encounter for screening for malignant neoplasm of respiratory organs (principal); Z72.0 Tobacco use
CPT/HCPCS: 71271

== ENCOUNTER 2023-09-06 19:35 | Emergency (ER) | payer OTHER, MEDICAID ==
[~2023-09-06] VITALS: Ht 157.8 cm; Wt 60.3 kg
[2023-09-06] MEDS ORDERED: NS IV 1000 ML 1,000 ML IV SCH (20:30)
[2023-09-06 20:36] LABS: BASOPHILS % (AUTO) 1 % (0-10); EOSINOPHILS % (AUTO) 1 % (0-10); HEMATOCRIT 45 % (35-52); LYMPHOCYTES # (AUTO) 3.2 10^3/uL (1.0-4.0); LYMPHOCYTES % (AUTO) 50 % (12-44); MEAN CORPUSCULAR HEMOGLOBIN 31 pg (25-34); MEAN CORPUSCULAR HGB CONC 33 g/dL (32-36); MEAN CORPUSCULAR VOLUME 94 fL (80-99); MEAN PLATELET VOLUME 10.6 fL (9.0-12.2); MONOCYTES # (AUTO) 0.6 10^3/uL (0.0-1.0); MONOCYTES % (AUTO) 10 % (0-12); NEUTROPHILS # (AUTO) 2.5 10^3/uL (1.8-7.8); NEUTROPHILS % (AUTO) 39 % (42-75); PLATELET COUNT 192 10^3/uL (130-400); WHITE BLOOD COUNT 6.4 10^3/uL (4.3-11.0)
--- NOTE | 2023-09-06 20:41 | ED Headache ---
General Chief Complaint: Head/Cervical Problems Stated Complaint: RINGING IN BOTH EARS, HEADACHES, LIGHTHEADED Nursing Triage Note: PT AMB TO [facility] 10 WITH CC OF RINGING IN EARS AND PRESSURE AND HEAVINESS AT THE BASE OF SKULL. PT STATES THAT SHE HAD A MIGRAINE TODAY. Source: patient Exam Limitations: no limitations History of Present Illness Date Seen by Provider: Sep 06, 2023 Time Seen by Provider: 20:12 Initial Comments 63-year-old female presents to the ER with complaint of pressure in the back of her head and neck started today. She also reports ringing in her ears which has been going on for the last week. Reports that last night it was pulsatile, states it is constant now. She reports that she took Benadryl approximately 2 to 3 hours ago which improved the tinnitus. She states that earlier today she had a migraine located in her forehead and frontal sinus. States at the time she felt like her face was tingling. She states she felt mildly short of air with it. She reports that she has had on and off sinus issues for years. She saw her primary about 1 week ago because she thought she had a sinus infection. The provider did not prescribe her antibiotic at that time. She states that she has had previous migraines located in in the frontal region before, but she does not think she has ever had a headache in the posterior region like she has now. She does report feeling like a lump or tightness on the left side of her neck. She denies sore throat. Denies fevers, nausea, vomiting. Reports that lights make her headache worse. Denies vision changes. Allergies and Home Medications Allergies Coded Allergies: prednisone (Verified Allergy, Intermediate, BLISTERS, 09/06/23) sulfamethoxazole (Unverified Allergy, Mild, 05/25/09) trimethoprim (Unverified Allergy, Mild, 05/25/09) Sulfa (Sulfonamide Antibiotics) (Unverified Allergy, Unknown, 12/08/16) acyclovir (Verified Allergy, Unknown, 03/23/23) escitalopram (Verified Allergy, Unknown, 03/23/23) venlafaxine (Verified Allergy, Unknown, 03/23/23) Patient Home Medication List Home Medication List Reviewed: Yes Amoxicillin/Potassium Clav (Amox Tr-K Clv 875-125 mg Tab) 875 Mg-125 Mg Tablet, 1 EACH PO BID Prescribed by: Laura Christian on 09/06/232207 Levothyroxine Sodium (Synthroid) 50 Mcg Tablet, 50 MCG PO DAILY, (Reported) Entered as Reported by: QUOC LAKE on 05/23/162209 Pantoprazole Sodium (Protonix) 40 Mg Tablet.dr, 40 MG PO DAILY Prescribed by: SHAMEKA AGRAWAL on 04/05/23 0856 Review of Systems Review of Systems Constitutional: see HPI Past [id number] Hx Patient Social History Tobacco Use?: Yes Tobacco type used: Cigarettes Substance use?: No Alcohol Use?: Yes Alcohol Frequency: Rarely Immunizations Up To Date Tetanus Booster (TDap): Unknown First/Initial COVID19 Vaccinat: N/A Second COVID19 Vaccination Kvng: N/A Third COVID19 Vaccination Date: N/A Seasonal Allergies Seasonal Allergies: Yes Past Medical History Surgery/Hospitalization HX: DIVERTICULITIS LLUVIA, APPE Surgeries: Yes (OPEN RSO, hernia sx?) Appendectomy, Gallbladder, Oophorectomy, Tubal Ligation Respiratory: No Currently Using CPAP: No Currently Using BIPAP: No Cardiac: No Neurological: No Reproductive Disorders: Yes (UTERINE FIBROIDS, FIBROCYSTIC BREAST DISEASE) Female 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 oz. 63.348788hd; 24.00 BMI Method:Stated General Appearance: WD/WN, mild distress HEENT: PERRL/EOMI, TM abnormal (R) (Dull); No TM abnormal (L); other (Has an essential tremor causing her head to shake, denies change in this) Neck: non-tender, full range of motion, supple, normal inspection, lymphadenopathy (L) (Possible mild lymphadenopathy) Cardiovascular: regular rate, rhythm Respiratory: lungs clear, normal breath sounds, no respiratory distress, no accessory muscle use Extremities: normal range of motion, normal inspection Psychiatric: alert [place] Nerves: normal hearing (Cranial nerves II through XII normal as tested), normal speech, PERRL Motor/Sensory: no motor deficit, no sensory deficit Skin: normal color, warm/dry Progress/Results/Core Measures Results/Orders Lab Results Laboratory Tests Test 09/06/23 20:09 Range/Units White Blood Count 6.4 4.3-11.0 10^3/uL Red Blood Count 4.79 3.80-5.11 10^6/uL Hemoglobin 15.0 11.5-16.0 g/dL Hematocrit 45 35-52 % Mean Corpuscular Volume 94 80-99 fL Mean Corpuscular Hemoglobin 31 25-34 pg Mean Corpuscular Hemoglobin Concent 33 32-36 g/dL Red Cell Distribution Width 12.1 10.0-14.5 % Platelet Count 192 130-400 10^3/uL Mean Platelet Volume 10.6 9.0-12.2 fL Immature Granulocyte % (Auto) 0 % Neutrophils (%) (Auto) 39 L 42-75 % Lymphocytes (%) (Auto) 50 H 12-44 % Monocytes (%) (Auto) 10 0-12 % Eosinophils (%) (Auto) 1 0-10 % Basophils (%) (Auto) 1 0-10 % Neutrophils # (Auto) 2.5 1.8-7.8 10^3/uL Lymphocytes # (Auto) 3.2 1.0-4.0 10^3/uL Monocytes # (Auto) 0.6 0.0-1.0 10^3/uL Eosinophils # (Auto) 0.0 0.0-0.3 10^3/uL Basophils # (Auto) 0.0 0.0-0.1 10^3/uL Immature Granulocyte # (Auto) 0.0 0.0-0.1 10^3/uL Sodium Level 141 135-145 MMOL/L Potassium Level 4.2 3.6-5.0 MMOL/L Chloride Level 105 98-107 MMOL/L Carbon Dioxide Level 25 21-32 MMOL/L Anion Gap 11 5-14 MMOL/L Blood Urea Nitrogen 6 L 7-18 MG/DL Creatinine 0.82 0.60-1.30 MG/DL Estimat Glomerular Filtration Rate 79 BUN/Creatinine Ratio 7 Glucose Level 90 70-105 MG/DL Calcium Level 10.0 8.5-10.1 MG/DL Corrected Calcium 8.5-10.1 MG/DL Total Bilirubin 0.5 0.1-1.0 MG/DL Aspartate Amino Transf (AST/SGOT) 23 5-34 U/L Alanine Aminotransferase (ALT/SGPT) 16 0-55 U/L Alkaline Phosphatase 50 40-136 U/L Total Protein 7.1 6.4-8.2 GM/DL Albumin 4.6 H 3.2-4.5 GM/DL My Orders Orders - LAURA HAM APRN Cbc And Automated Diff (09/06/23 20:30) Comprehensive Metabolic Panel (09/06/23 20:30) Ed Iv/Invasive Line Start (09/06/23 20:30) Ns Iv 1000 Ml (Ns Iv 1000 Ml) (09/06/23 20:30) Ct Head/Cervical Spine Wo (09/06/23 20:30) Ketorolac Injection (Ketorolac Injection (09/06/23 21:30) Diphenhydramine Injection (Diphenhydram (09/06/23 21:30) Metoclopramide Injection (Metoclopramide (09/06/23 21:30) Amoxicillin/Clavulanate Tablet (Amoxicil (09/06/23 22:15) Medications Given in ED Current Medications Medications Dose Ordered Sig/Narayan Route Start Time Stop Time Status Last Admin Dose Admin Amoxicillin/ Clavulanate Potassium 875 mg ONCE ONCE PO 09/06/23 22:15 09/06/23 22:16 DC 09/06/23 22:16 875 MG Diphenhydramine HCl 25 mg ONCE ONCE IVP 09/06/23 21:30 09/06/23 21:31 DC 09/06/23 21:30 25 MG Ketorolac Tromethamine 15 mg ONCE ONCE IVP 09/06/23 21:30 09/06/23 21:31 DC 09/06/23 21:29 15 MG Metoclopramide HCl 10 mg ONCE ONCE IVP 09/06/23 21:30 09/06/23 21:31 DC 09/06/23 21:29 10 MG Vital Signs/I&O 09/06/23 09/06/23 19:59 22:22 Temp 37.0 Pulse 79 77 B/P (MAP) 139/93 (108) 133/77 Pulse Ox 98 98 O2 Delivery Room Air Room Air Blood Pressure Mean: 108 Progress Progress Note : Progress Note Patient seen and evaluated, resting in bed, mild distress. Based on exam and symptoms, work-up initiated including CBC, CMP, CT head, C-spine, and soft tissue neck. IV fluids ordered. [address] reviewed. CBC grossly normal. CMP grossly normal. CT shows no intracranial hemorrhage or CT evidence of acute territorial ischemia. Degenerative changes in the C-spine without acute osseous abnormality. It does show mucosal thickening in the ethmoid sinuses. There is no underlying masses or fluid collections in the neck. Patient given Toradol, Benadryl, and Reglan after CT report was negative. Patient reevaluated, states that her headache is gone. Will treat for sinus infection. First dose of Augmentin given now. Patient is stable for discharge. Discharge instructions and return precautions provided. Diagnostic Imaging Diagonstic Imaging: CT Plain Films/CT/US/NM/MRI: c-spine, head Comments [facility], [place] NAME: NOEL PLEITEZ [facility] REC#: [id number] PT STATUS: REG ER : 1960 PHYSICIAN: LAURA HAM APRN ADMIT DATE: 09/06/23/ER Signed Date of Exam:09/06/23 CT HEAD/CERVICAL SPINE WO PROCEDURE: CT head and CT cervical spine without contrast. TECHNIQUE: Multiple contiguous axial images were obtained through the brain and cervical spine without the use of intravenous contrast. Sagittal and coronal reformations through the cervical spine were then performed. Auto Exposure Controls were utilized during the CT exam to meet ALARA standards for radiation dose reduction. INDICATION: Head and neck pain. COMPARISON: 05/08/2021. Radiographs from 05/19/2021. FINDINGS: CT HEAD: The ventricles and cortical sulci are age-appropriate. There is no midline shift or mass effect. No acute intracranial hemorrhage is seen. There is no CT evidence of acute territorial ischemia. The calvarium appears intact. There is mucosal thickening in the ethmoid sinuses otherwise paranasal sinuses appear clear. The mastoid air cells demonstrate minimal fluid bilaterally. CT CERVICAL SPINE: There is reversal of the cervical lordosis centered at C4. This is mild. There is no spondylolisthesis. There are moderate severe degenerative changes at C4-C5, C5-C6 and C6-C7 with mild degenerative changes elsewhere in the cervical spine. There is mild facet arthropathy. Vertebral body heights are preserved. No acute fracture is seen. No bony fragments or hyperdense fluid collections are seen in the spinal canal. There does appear to be some spinal canal stenosis and foraminal stenosis due to degenerative change. Surrounding soft tissues demonstrate no acute abnormality. There is a CT marker at the left neck overlying the sternocleidomastoid mastoid muscle. No underlying masses or fluid collections are seen on this noncontrast exam. No significant lymphadenopathy is appreciated. IMPRESSION: 1. No acute intracranial hemorrhage or CT evidence of acute territorial ischemia. 2. Degenerative changes in the cervical spine with no acute osseous abnormality seen. Dictated by: Dictated on workstation # [id number] Dict: 09/06/232103 Trans: 09/06/232154 [facility] [id number] Interpreted by: ISABEL SHARMA MD Electronically signed by: ISABEL SHARMA MD 09/06/232154 Departure Impression Primary Impression: Headache Additional Impression: Sinusitis Disposition: 01 HOME, SELF-CARE Condition: Stable Departure-Patient Inst. Decision time for Depature: 22:23 Referrals: JACQUELINE HE DO (PCP/Family) Primary Care Physician Patient Instructions: Sinusitis, Adult ED Add. Discharge Instructions: Complete full course of antibiotic as prescribed. Follow-up with your primary care provider. Return for severe headache, weakness on one side your body, abnormal behavior, slurred speech, or any other new, concerning, or worsening symptoms. All discharge instructions reviewed with patient and/or family. Voiced unders tanding. Scripts Amoxicillin/Potassium Clav (Amox Tr-K Clv 875-125 mg Tab) 875 Mg-125 Mg Tablet 1 EACH PO BID for 7 Days, #14 TAB 0 Refills Prov: LAURA HAM APRN 09/06/23 Copy Copies To 1: JACQUELINE HE BRITTANY R APRN Sep 06, 2023 20:41
[2023-09-06 20:47] LABS: ALANINE AMINOTRANSFERASE 16 U/L (0-55); ALBUMIN 4.6 GM/DL (3.2-4.5); ALKALINE PHOSPHATASE 50 U/L (40-136); BILIRUBIN,TOTAL 0.5 MG/DL (0.1-1.0); BUN/CREATININE RATIO 7; CARBON DIOXIDE 25 MMOL/L (21-32); CHLORIDE 105 MMOL/L (98-107); CREATININE SERUM 0.82 MG/DL (0.60-1.30); GFR ESTIMATED 79; GLUCOSE 90 MG/DL (70-105); POTASSIUM 4.2 MMOL/L (3.6-5.0); SODIUM 141 MMOL/L (135-145); TOTAL PROTEIN 7.1 GM/DL (6.4-8.2)
--- NOTE | 2023-09-06 21:13 | Diagnostic Imaging Report ---
PROCEDURE: CT head and CT cervical spine without contrast. TECHNIQUE: Multiple contiguous axial images were obtained through the brain and cervical spine without the use of intravenous contrast. Sagittal and coronal reformations through the cervical spine were then performed. Auto Exposure Controls were utilized during the CT exam to meet ALARA standards for radiation dose reduction. INDICATION: Head and neck pain. COMPARISON: 05/08/2021. Radiographs from 05/19/2021. FINDINGS: CT HEAD: The ventricles and cortical sulci are age-appropriate. There is no midline shift or mass effect. No acute intracranial hemorrhage is seen. There is no CT evidence of acute territorial ischemia. The calvarium appears intact. There is mucosal thickening in the ethmoid sinuses otherwise paranasal sinuses appear clear. The mastoid air cells demonstrate minimal fluid bilaterally. CT CERVICAL SPINE: There is reversal of the cervical lordosis centered at C4. This is mild. There is no spondylolisthesis. There are moderate severe degenerative changes at C4-C5, C5-C6 and C6-C7 with mild degenerative changes elsewhere in the cervical spine. There is mild facet arthropathy. Vertebral body heights are preserved. No acute fracture is seen. No bony fragments or hyperdense fluid collections are seen in the spinal canal. There does appear to be some spinal canal stenosis and foraminal stenosis due to degenerative change. Surrounding soft tissues demonstrate no acute abnormality. There is a CT marker at the left neck overlying the sternocleidomastoid mastoid muscle. No underlying masses or fluid collections are seen on this noncontrast exam. No significant lymphadenopathy is appreciated. IMPRESSION: 1. No acute intracranial hemorrhage or CT evidence of acute territorial ischemia. 2. Degenerative changes in the cervical spine with no acute osseous abnormality seen. Dictated by: Dictated on workstation # [id number]
[2023-09-06] MEDS ORDERED: KETOROLAC INJ 15 MG/ML VIAL IVP ONE (21:30)
[2023-09-06] MEDS ORDERED: diphenhydrAMINE INJ 50 MG/ML VIAL IVP ONE (21:30)
[2023-09-06] MEDS ORDERED: METOCLOPRAMIDE INJ 10 MG/2 ML IVP ONE (21:30)
[2023-09-06] MEDS ORDERED: AMOX1TAB12 PO (22:08)
[2023-09-06] MEDS ORDERED: AMOXICILLIN/Clavulanate 875 MG TABLET PO ONE (22:15)
[2023-09-06 22:22] VITALS: BP 133/77
== END 2023-09-06 22:27 | disposition home or self-care (01) ==
LOC: EDUNIT# 19:35 → ER 19:38
DX: J32.2 Chronic ethmoidal sinusitis (principal); F17.210 Nicotine dependence, cigarettes, uncomplicated; Z88.2 Allergy status to sulfonamides
CPT/HCPCS: 36415; 70450; 72125; 80053; 85025; 96361; 96374; 96375